=== PATIENT | female | born 1980 | race Caucasian/White ===

== ENCOUNTER 2018-12-09 15:19 | Emergency (ER) | payer OTHER, MEDICAID, SELFPAY ==
[2018-12-09 15:33] VITALS: BP 118/73; PULSE 74; RESP 18; TEMP 36.6; O2SAT 97; BMI 31.0
== END 2018-12-09 16:42 | disposition left against medical advice (07) ==
LOC: ED 15:52
DX: M54.2 Cervicalgia (principal)
CPT/HCPCS: 99281; 99282

== ENCOUNTER 2019-01-04 09:35 | Inpatient (IN) | payer MEDICAID, SELFPAY ==
[2019-01-04] VITALS (9 sets, daily range): BP systolic 99–124; BP diastolic 59–80; PULSE 56–85; RESP 10–18; TEMP 36.6–37; O2SAT 97–100
--- NOTE | 2019-01-04 09:46 | DI.CT.S_ITS ---
PROCEDURE: CT HEAD/BRAIN WO CON INDICATIONS: left side weakness upon waking TECHNIQUE: Noncontrast 4.5 mm thick angled axial sections acquired from the foramen magnum to the vertex, with coronal and sagittal reformats. For radiation dose reduction, the following was used: automated exposure control, adjustment of mA and/or kV according to patient size. COMPARISON: [facility], CT, HEAD WITHOUT CONTRAST, 09/10/2017, 16:33. FINDINGS: Image quality: Excellent. CSF spaces: Basal cisterns are patent. No extra-axial fluid collections. Ventricles are normal in size and shape. Brain: No midline shift. No intracranial masses or hemorrhage. Baez-white matter interface is normal. Skull and face: Calvarium and visualized facial bones are intact, without suspicious lesions. Sinuses: Visualized sinuses and mastoids are clear. IMPRESSION: No CT evidence of acute intracranial pathology. Dictated by: Sergey Castillo M.D. on 01/04/2019 at 9:59 Approved by: Sergey Castillo M.D. on 01/04/2019 at 10:00
--- NOTE | 2019-01-04 10:17 | PC.NURSE ---
pt reports, woke up at 6am, with left eye swollen and left face and body numbness/weakness, with foggy visual. pt took benadryl 50mg , ibuprofen 400mg at 615. now with pulsing headache back of head. denies fever, and vomiting has nausea. 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 hx of gastric bypass, c section, pseudoseizures.
[2019-01-04 10:19] LABS: Add Manual Diff / Slide Review NO; Basophils Absolute Auto 0 /uL (0-100); Basophils Percent Auto 0.4 % (0-2); Eosinophils Absolute Auto 100 /uL (0-450); Eosinophils Percent Auto 1.6 % (2-4); Hematocrit 39.4 % (36-46); Hemoglobin 13.3 g/dL (12.0-16.0); Lymphocytes Absolute Auto 1600 /uL (1100-4500); Lymphocytes Percent Auto 26.5 % (25-40); Mean Corpuscular HGB Conc 33.9 % (30-36); Mean Corpuscular Hemoglobin 31.2 PG (26-34); Mean Corpuscular Volume 92.1 fL (80-100); Monocytes Absolute Auto 400 /uL (0-900); Monocytes Percent Auto 6.8 % (3-14); Neutrophils Absolute Auto 4000 /uL (1500-7000); Neutrophils Percent Auto 64.7 % (50-75); Platelet Count 199 X10^3/uL (150-400); Red Blood Cell Count 4.28 X10^6/uL (4.0-5.2); Red Cell Distribution Width 12.6 % (11.6-14.8); White Blood Cell Count 6.2 X10^3/uL (4.5-11.0)
[2019-01-04] MEDS: SODIUM CHLORIDE 0.9% 1,000 ML 150 ML IV (10:22)
[2019-01-04 10:27] LABS: INR 1.1 (0.9-1.3); Prothrombin Time 12.1 SECONDS (10.1-12.7)
[2019-01-04 10:30] LABS: PTT Partial Thromboplastin Tim 32 SECONDS (26.4-36.2)
[2019-01-04 10:32] LABS: BUN Creatinine Ratio 21.1 (6-22); Blood Urea Nitrogen 19 mg/dL (7-17); Calcium 9.1 mg/dL (8.4-10.2); Carbon Dioxide 26 mmol/L (22-32); Chloride 107 mmol/L (98-107); Estimated Glomerular Filt Rate > 60.0 mL/min (>60); Glucose 100 mg/dL (70-100); HEMOLYSIS < 15 (0-50); Potassium 4.4 mmol/L (3.4-5.1); Sodium 142 mmol/L (137-145)
--- NOTE | 2019-01-04 10:36 | DI.MRI.S_ITS ---
PROCEDURE: MR STROKE Pre- and post-contrast brain MRI, non-contrast brain MR angiogram, pre- and postcontrast neck MR angiogram INDICATIONS: L sided weakness TECHNIQUE: Brain: Noncontrast axial T1 spin echo, axial T2 fast spin echo, sagittal and axial FLAIR, coronal T2 fast spin echo, axial gradient echo, axial diffusion and ADC through the brain. After the administration of contrast, axial 3D VIBE of the cranial vasculature and brain. Brain MRA: Non-contrast 3-D time of flight MR angiogram, with multiple bhtmhyd-ekzmwjops-xbqbxrugll (MIP) reformats performed. Neck MRA: Axial and sagittal TruFISP through the neck. Coronal dynamic MR angiogram during administration of contrast in the arterial and venous phases, with 3-dimenstional mhcsnrg-dnxopvtrz-wgagpmqnhy (MIP) reformats constructed from subtraction images. COMPARISON: [facility], CT, BRAIN W/O CONTRAST, 11/14/2012, 20:59. [facility], CT, HEAD WITHOUT CONTRAST, 09/10/2017, 16:33. [facility], CT, CT HEAD/BRAIN WO CON, 01/04/2019, 9:41. FINDINGS: Image quality: Excellent. BRAIN: CSF spaces: Ventricles are normal in size and shape. Basal cisterns are patent. No extra-axial fluid collections. Brain: No intracranial bleeds or mass effects. Baez-white matter interface is normal. Diffusion weighted images show no acute ischemic insults. Brainstem appears normal. Normal intravascular flow voids are present. No abnormal intracranial enhancement. Skull and face: Calvarial marrow signal is normal. Orbits appear normal. Sinuses: Sinuses and mastoids are clear. BRAIN MR ANGIOGRAM: Anterior circulation: Intracranial internal carotid arteries are normal in size and enhancement. The flow within the paired anterior cerebral arteries is normal and symmetric. The flow within the middle cerebral arteries is normal and symmetric. The anterior communicating artery is seen. No stenoses, occlusions, or aneurysms. Posterior circulation: The visualized portions of the vertebral arteries demonstrate normal caliber, and join to form a normal appearing basilar artery. The flow within the posterior cerebral arteries is normal and symmetric. No stenoses, occlusions, or aneurysms. NECK MR ANGIOGRAM: Carotids: Great vessels demonstrate a conventional anatomy as they arise from the aortic arch. The origins of the common carotid arteries appear patent. The calibers and courses of both common carotid arteries are normal. The bifurcation regions appear normal bilaterally. The internal carotid arteries demonstrate normal course and caliber. Posterior circulation: The origins of the vertebral arteries appear patent. More superior portions of both vertebral arteries demonstrate normal course and caliber, and join to form a normal appearing basilar artery. Miscellaneous: Subclavian arteries appear patent. Pre-contrast images through the neck show no soft tissue abnormalities. IMPRESSION: BRAIN MRI: No acute intracranial abnormality. BRAIN MR ANGIOGRAM: No high-grade stenosis or occlusion in anterior circulations. No high-grade stenosis or occlusion in posterior circulations. NECK MR ANGIOGRAM: Normal cervical carotid arteries bilaterally. Normal cervical vertebral arteries bilaterally. Dictated by: Jackson Payton M.D. on 01/04/2019 at 12:21 Approved by: Jackson Payton M.D. on 01/04/2019 at 12:25
[2019-01-04] MEDS: LORazepam 2 MG/ML SYRINGE 1 MG IV (10:53)
--- NOTE | 2019-01-04 11:45 | PC.NURSE ---
and weakness. pt able to ambulate to bathroom with steady gait.
--- NOTE | 2019-01-04 11:49 | ED.NEUROSD ---
HPI - Neuro Symptoms/Deficit General Chief Complaint: Neuro Symptoms/Deficit Stated Complaint: WHOLE FACE NUMB/SWOLLEN,LEFT SIDE NUMB,NECK STIFF Time Seen by Provider: 01/04/19 09:36 Source: patient and family Mode of arrival: ambulatory Limitations: no limitations History of Present Illness HPI Narrative: 38-year-old female nonsmoker presents with family in the chief complaint of multiple neurologic symptoms which she noticed upon waking at 6:00 a.m. this morning. Her symptoms include left-sided facial numbness and weakness as well as tingling and weakness of her left upper and lower extremity. She denies any chest pain or shortness of breath. She denies any recent injury. She denies any use blood thinners. She denies any history of the same. She has not activated as a stroke as she is outside of a tPA window and her RALPH score is only 2. Onset (ago): hour(s) Location: speech, left face, left arm and left leg History of same: No Severity: mild Quality: weak and numb Relieving factors: none Exacerbating factors: none Associated symptoms: denies other symptoms Treatments Prior to Arrival: none Related Data Home Medications Medication Instructions Recorded Confirmed Liver Cleanse 1 dose PO DIRECTED 01/04/19 01/04/19 multivitamin 1 tab PO DAILY 01/04/19 01/04/19 multivitamin with minerals 1 tab PO DAILY 01/04/19 01/04/19 [Hair,Skin and Nails] Allergies Allergy/AdvReac Type Severity Reaction Status Date / Time ceftriaxone [CEFTRIAXONE] Allergy Intermediate Verified 01/04/19 09:44 ketorolac [KETOROLAC] Allergy Intermediate Verified 01/04/19 09:44 acetaminophen [From VICODIN] Allergy Unknown Verified 01/04/19 09:44 enoxaparin [From LOVENOX] Allergy Unknown Verified 01/04/19 09:44 hydrocodone [From VICODIN] Allergy Unknown Verified 01/04/19 09:44 prednisone [PREDNISONE] Allergy Unknown Verified 01/04/19 09:44 MEDICATION FOR BLOOD CLOTS Allergy Intermediate Uncoded 01/04/19 09:44 Review of Systems Constitutional Denies chills, Denies fever(s), Denies lethargy and Denies weakness Eyes Denies change in vision, Denies eye discharge, Denies irritation and Denies loss of vision ENT Ears, Nose, Mouth, and Throat: Denies change in voice, Denies neck pain and Denies sore throat Cardiovascular Denies chest pain, Denies irregular heart rhythm, Denies lightheadedness, Denies palpitations, Denies dyspnea, Denies dyspnea on exertion and Denies orthopnea Respiratory Denies cough, Denies dyspnea, Denies dyspnea on exertion and Denies wheezing Gastrointestinal Gastrointestinal: Denies abdominal pain, Denies change in bowel habits, Denies diarrhea, Denies nausea and Denies vomiting Genitourinary Denies hematuria, Denies flank pain, Denies urinary incontinence and Denies urinary urgency Musculoskeletal Denies neck pain Integumentary/Breasts Denies pruritus, Denies erythema, Denies rash and Denies wounds Neurologic Denies confusion, Reports focal weakness, Denies loss of vision, Reports sensory deficit and Denies weakness Psychiatric Denies anxiety, Denies confusion, Denies depression, Denies homicidal ideation and Denies suicidal ideation Endocrine Denies palpitations Hematologic/Lymphatic Denies easy bruising Allergic/Immunologic Denies wheezing PFSH Social History Smoking Status: Never smoker Social History Smoking Status: Never smoker Exam Narrative Exam Narrative: GENERAL: This is a well-nourished, well-developed patient, in mild distress. HEAD: Atraumatic. Normocephalic. No temporal or scalp tenderness. Minimal swelling of left upper lid, nontender EYES: Pupils equal round and reactive. Extraocular motions intact. No scleral icterus. No injection or drainage. ENT: Nose without bleeding, purulent drainage or septal hematoma. Throat without erythema, tonsillar hypertrophy or exudate. Uvula midline. Airway patent. NECK: Trachea midline. No JVD or lymphadenopathy. Supple, nontender, no meningeal signs. CARDIOVASCULAR: Regular rate and rhythm without murmurs, gallops, or rubs. RESPIRATORY: Clear to auscultation. Breath sounds equal bilaterally. No wheezes, rales, or rhonchi. GASTROINTESTINAL: Abdomen soft, non-tender, nondistended. No hepato-splenomegaly, or palpable masses. No guarding. EXTREMITIES: No clubbing, cyanosis, or edema. No joint tenderness, effusion, or edema noted. BACK: Nontender without deformity or crepitance. No flank tenderness. NEURO: AOx3. SKIN: No rash or erythema. Initial Vital Signs Initial Vital Signs: Vital Signs Temperature 98.2 F 01/04/19 09:44 Pulse Rate 74 01/04/19 09:44 Respiratory Rate 15 01/04/19 09:44 Blood Pressure 124/66 01/04/19 09:44 Pulse Oximetry 100 01/04/19 09:44 Scores NIH Stroke Scale Level of Conciousness: Alert, keenly responsive Ask month/age: Answers both questions correctly. Open/close eyes, close hand: Performs both tasks correctly Best gaze horizontal: Normal Visual chanel: No visual loss Facial palsy: Minor paralysis, flattened nasolabial fold, asymmetry on smiling Left arm drift: No drift for full 10 sec Right arm drift: No drift for full 10 sec Left leg drift: Drifts down, not to bed Right leg drift: No drift for full 10 sec Limb ataxia: Absent Sensory on face/arms/legs: Mild to moderate sensory loss, can tell touch Best language: No aphasia, normal Dysarthria: Normal Extinction or inattention: No abnormality Total NIH Stroke scale score: 3 Course Orders Ordered: ED Orders 01/04/19 09:43 Urine Drug Screen, Rapid Stat EKG-12 Lead Stat 01/04/19 09:46 CT head/brain wo con Stat 01/04/19 10:05 Basic Metabolic Panel Stat Complete Blood Count AUTO DIFF Stat Partial Thromboplastin Time Stat Prothrombin Time INR Stat 01/04/19 10:36 MR stroke Stat 01/04/19 11:03 Urine Microscopic Stat Sodium Chloride (Normal Saline 0.9%) 1,000 mls @ 150 mls/hr IV CONT NILESH Last Admin: 01/04/19 10:22 Dose: 150 mls/hr Discontinued Medications Aspirin (Aspirin) 325 mg PO NOW ONE Stop: 01/04/19 11:56 Last Admin: 01/04/19 12:17 Dose: 325 mg Ketorolac Tromethamine (Toradol) 15 mg IV NOW ONE Stop: 01/04/19 13:04 Lorazepam (Ativan) 1 mg IV NOW ONE Stop: 01/04/19 10:45 Last Admin: 01/04/19 10:53 Dose: 1 mg Metoclopramide HCl (Reglan) 10 mg IV NOW ONE Stop: 01/04/19 13:04 Consultations Consultation #1: Upon receipt of negative MRI I consulted stroke at [facility] and discussed this patient's case. We sure the opinion this is unlikely to be stroke but could still be TIA given time frame or something such as hemiplegic migraine. Recommendations are to treat for migraine and bring into the hospital to perform echocardiogram with bubble and place patient on telemetry. If the patient does have a PFO they recommend adding Doppler of bilateral lower extremities. The same neurologist is sanitation associate tomorrow from 9:00 a.m. to 2:00 p.m. and would highly prefer to be contacted during this time frame to maintain continuity of care Consultation #2: Dr. Torrez happy to accept Vital Signs - 8 hr 01/04/19 09:44 01/04/19 10:30 01/04/19 11:45 Temperature 98.2 F Pulse Rate 74 56 L 81 Respiratory Rate 15 10 L 12 Blood Pressure 124/66 Blood Pressure [Left Arm] 109/78 123/77 Pulse Oximetry 100 98 100 01/04/19 12:26 01/04/19 13:02 Temperature Pulse Rate 75 78 Respiratory Rate 18 18 Blood Pressure Blood Pressure [Left Arm] 112/80 123/79 Pulse Oximetry 99 100 MDM - Neuro Symptoms/Deficit Medical Records Attestation: I reviewed the patient's medical records. Lab Data Attestation: I reviewed the patient's lab results. Result diagrams: 01/04/19 10:05 01/04/19 10:05 Lab Results 01/04/19 01/04/19 01/04/19 Range/Units 10:05 10:05 10:05 WBC 6.2 (4.5-11.0) X10^3/uL RBC 4.28 (4.0-5.2) X10^6/uL Hgb 13.3 (12.0-16.0) g/dL Hct 39.4 (36-46) % MCV 92.1 (80-100) fL MCH 31.2 (26-34) PG MCHC 33.9 (30-36) % RDW 12.6 (11.6-14.8) % Plt Count 199 (150-400) X10^3/uL Neut % (Auto) 64.7 (50-75) % Lymph % (Auto) 26.5 (25-40) % [place] % (Auto) 6.8 (3-14) % Eos % (Auto) 1.6 L (2-4) % Baso % (Auto) 0.4 (0-2) % Neut # (Auto) 4000 (2454-9237) /uL Lymph # (Auto) 1600 (3145-1937) /uL [place] # (Auto) 400 (0-900) /uL Eos # (Auto) 100 (0-450) /uL Baso # (Auto) 0 (0-100) /uL PT 12.1 (10.1-12.7) SECONDS INR 1.1 (0.9-1.3) APTT 32 (26.4-36.2) SECONDS Sodium 142 (137-145) mmol/L Potassium 4.4 (3.4-5.1) mmol/L Chloride 107 (98-107) mmol/L Carbon Dioxide 26 (22-32) mmol/L BUN 19 H (7-17) mg/dL Creatinine 0.90 (0.52-1.04) mg/dL Estimated GFR > 60.0 (>60) mL/min BUN/Creatinine Ratio 21.1 (6-22) Glucose 100 (70-100) mg/dL Calcium 9.1 (8.4-10.2) mg/dL Point of Care Testing Glucose POC 109 Urine Dip Bedside Urine Glucose Negative Bedside Urine Bilirubin + 1 Bedside Urine Ketone - Negative Urine Specific [place] 1.030 Bedside Urine Occult Blood - Negative Bedside Urine pH 6.0 Bedside Urine Protein - Negative Bedside Urine Urobilinogen - Negative Bedside Urine Nitrite - Negative Bedside Urine Leukocytes - Negative Esterase Imaging Data CT scan - head: Radiologist's impression: [address] [address] [address] Scan Report Signed Patient: Tabby Edmondson [facility]#: [id number] : 1980Acct:[id number] Age/Sex: 38 / FDate of Service: 01/04/19 Loc: ED Accession Number: [id number] Procedure: CT head/brain wo con Ordering Provider: Jaycob Wong D.O. PROCEDURE: CT HEAD/BRAIN WO CON INDICATIONS: left side weakness upon waking TECHNIQUE: Noncontrast 4.5 mm thick angled axial sections acquired from the foramen magnum to the vertex, with coronal and sagittal reformats. For radiation dose reduction, the following was used: automated exposure control, adjustment of mA and/or kV according to patient size. COMPARISON: [facility], CT, HEAD WITHOUT CONTRAST, 09/10/2017, 16:33. FINDINGS: Image quality: Excellent. CSF spaces: Basal cisterns are patent. No extra-axial fluid collections. Ventricles are normal in size and shape. Brain: No midline shift. No intracranial masses or hemorrhage. Baez-white matter interface is normal. Skull and face: Calvarium and visualized facial bones are intact, without suspicious lesions. Sinuses: Visualized sinuses and mastoids are clear. IMPRESSION: No CT evidence of acute intracranial pathology. Dictated by: Sergey Castillo M.D. on 01/04/2019 at 9:59 Approved by: Sergey Castillo M.D. on 01/04/2019 at 10:00 MRI Stroke: Radiologist's impression: [address] [address] Magnetic Resonance Report Signed Patient: Tabby Edmondson [facility]#: [id number] : 1980Acct:[id number] Age/Sex: 38 / FDate of Service: 01/04/19 Loc: ED Accession Number: [id number] Procedure: MR stroke Ordering Provider: Jaycob Wong D.O. PROCEDURE: MR STROKE Pre- and post-contrast brain MRI, non-contrast brain MR angiogram, pre- and postcontrast neck MR angiogram INDICATIONS: L sided weakness TECHNIQUE: Brain: Noncontrast axial T1 spin echo, axial T2 fast spin echo, sagittal and axial FLAIR, coronal T2 fast spin echo, axial gradient echo, axial diffusion and ADC through the brain. After the administration of contrast, axial 3D VIBE of the cranial vasculature and brain. Brain MRA: Non-contrast 3-D time of flight MR angiogram, with multiple pfohvlg-vpkgzzxiw-ltyqnbadao (MIP) reformats performed. Neck MRA: Axial and sagittal TruFISP through the neck. Coronal dynamic MR angiogram during administration of contrast in the arterial and venous phases, with 3-dimenstional pftxdqc-sbpduuxay-hncczjswxl (MIP) reformats constructed from subtraction images. COMPARISON: [facility], CT, BRAIN W/O CONTRAST, 11/14/2012, 20:59. [facility], CT, HEAD WITHOUT CONTRAST, 09/10/2017, 16:33. [facility], CT, CT HEAD/BRAIN WO CON, 01/04/2019, 9:41. FINDINGS: Image quality: Excellent. BRAIN: CSF spaces: Ventricles are normal in size and shape. Basal cisterns are patent. No extra-axial fluid collections. Brain: No intracranial bleeds or mass effects. Baez-white matter interface is normal. Diffusion weighted images show no acute ischemic insults. Brainstem appears normal. Normal intravascular flow voids are present. No abnormal intracranial enhancement. Skull and face: Calvarial marrow signal is normal. Orbits appear normal. Sinuses: Sinuses and mastoids are clear. BRAIN MR ANGIOGRAM: Anterior circulation: Intracranial internal carotid arteries are normal in size and enhancement. The flow within the paired anterior cerebral arteries is normal and symmetric. The flow within the middle cerebral arteries is normal and symmetric. The anterior communicating artery is seen. No stenoses, occlusions, or aneurysms. Posterior circulation: The visualized portions of the vertebral arteries demonstrate normal caliber, and join to form a normal appearing basilar artery. The flow within the posterior cerebral arteries is normal and symmetric. No stenoses, occlusions, or aneurysms. NECK MR ANGIOGRAM: Carotids: Great vessels demonstrate a conventional anatomy as they arise from the aortic arch. The origins of the common carotid arteries appear patent. The calibers and courses of both common carotid arteries are normal. The bifurcation regions appear normal bilaterally. The internal carotid arteries demonstrate normal course and caliber. Posterior circulation: The origins of the vertebral arteries appear patent. More superior portions of both vertebral arteries demonstrate normal course and caliber, and join to form a normal appearing basilar artery. Miscellaneous: Subclavian arteries appear patent. Pre-contrast images through the neck show no soft tissue abnormalities. IMPRESSION: BRAIN MRI: No acute intracranial abnormality. BRAIN MR ANGIOGRAM: No high-grade stenosis or occlusion in anterior circulations. No high-grade stenosis or occlusion in posterior circulations. NECK MR ANGIOGRAM: Normal cervical carotid arteries bilaterally. Normal cervical vertebral arteries bilaterally. Dictated by: Jackson Payton M.D. on 01/04/2019 at 12:21 Approved by: Jackson Patyon M.D. on 01/04/2019 at 12:25 Critical Care Time Critical Care Time: Yes Total Critical Care Time: 30 Attestation: The high probability of a clinically significant, sudden or life threatening deterioration of the [neurologic] system(s) required my full and direct attention, intervention and personal management. The aggregate critical care time was [30] minutes. This time is in addition to time spent performing reported procedures but includes the following: [x] Data Review and interpretation [x] Patient assessment and monitoring of vital signs [x] Documentation [x] Medication orders and management Discharge Plan Departure Patient Disposition: Admitted as Observation Clinical Impression: Brain TIA Headache, hemiplegic migraine Qualifiers: Intractability: not intractable
--- NOTE | 2019-01-04 11:55 | ED_ITS ---
HPI - Neuro Symptoms/Deficit General Chief Complaint: Neuro Symptoms/Deficit Stated Complaint: WHOLE FACE NUMB/SWOLLEN,LEFT SIDE NUMB,NECK STIFF Time Seen by Provider: 01/04/19 09:36 Source: patient and family Mode of arrival: ambulatory Limitations: no limitations History of Present Illness HPI Narrative: 38-year-old female nonsmoker presents with family in the chief complaint of multiple neurologic symptoms which she noticed upon waking at 6:00 a.m. this morning. Her symptoms include left-sided facial numbness and weakness as well as tingling and weakness of her left upper and lower extremity. She denies any chest pain or shortness of breath. She denies any recent injury. She denies any use blood thinners. She denies any history of the same. She has not activated as a stroke as she is outside of a tPA window and her RALPH score is only 2. Onset (ago): hour(s) Location: speech, left face, left arm and left leg History of same: No Severity: mild Quality: weak and numb Relieving factors: none Exacerbating factors: none Associated symptoms: denies other symptoms Treatments Prior to Arrival: none Related Data Home Medications Medication Instructions Recorded Confirmed Liver Cleanse 1 dose PO DIRECTED 01/04/19 01/04/19 multivitamin 1 tab PO DAILY 01/04/19 01/04/19 multivitamin with minerals 1 tab PO DAILY 01/04/19 01/04/19 [Hair,Skin and Nails] Allergies Allergy/AdvReac Type Severity Reaction Status Date / Time ceftriaxone [CEFTRIAXONE] Allergy Intermediate Verified 01/04/19 09:44 ketorolac [KETOROLAC] Allergy Intermediate Verified 01/04/19 09:44 acetaminophen [From VICODIN] Allergy Unknown Verified 01/04/19 09:44 enoxaparin [From LOVENOX] Allergy Unknown Verified 01/04/19 09:44 hydrocodone [From VICODIN] Allergy Unknown Verified 01/04/19 09:44 prednisone [PREDNISONE] Allergy Unknown Verified 01/04/19 09:44 MEDICATION FOR BLOOD CLOTS Allergy Intermediate Uncoded 01/04/19 09:44 Review of Systems Constitutional Denies chills, Denies fever(s), Denies lethargy and Denies weakness Eyes Denies change in vision, Denies eye discharge, Denies irritation and Denies loss of vision ENT Ears, Nose, Mouth, and Throat: Denies change in voice, Denies neck pain and Denies sore throat Cardiovascular Denies chest pain, Denies irregular heart rhythm, Denies lightheadedness, Denies palpitations, Denies dyspnea, Denies dyspnea on exertion and Denies orthopnea Respiratory Denies cough, Denies dyspnea, Denies dyspnea on exertion and Denies wheezing Gastrointestinal Gastrointestinal: Denies abdominal pain, Denies change in bowel habits, Denies diarrhea, Denies nausea and Denies vomiting Genitourinary Denies hematuria, Denies flank pain, Denies urinary incontinence and Denies urinary urgency Musculoskeletal Denies neck pain Integumentary/Breasts Denies pruritus, Denies erythema, Denies rash and Denies wounds Neurologic Denies confusion, Reports focal weakness, Denies loss of vision, Reports sensory deficit and Denies weakness Psychiatric Denies anxiety, Denies confusion, Denies depression, Denies homicidal ideation and Denies suicidal ideation Endocrine Denies palpitations Hematologic/Lymphatic Denies easy bruising Allergic/Immunologic Denies wheezing PFSH Social History Smoking Status: Never smoker Social History Smoking Status: Never smoker Exam Narrative Exam Narrative: GENERAL: This is a well-nourished, well-developed patient, in mild distress. HEAD: Atraumatic. Normocephalic. No temporal or scalp tenderness. Minimal swel ling of left upper lid, nontender EYES: Pupils equal round and reactive. Extraocular motions intact. No scleral icterus. No injection or drainage. ENT: Nose without bleeding, purulent drainage or septal hematoma. Throat without erythema, tonsillar hypertrophy or exudate. Uvula midline. Airway patent. NECK: Trachea midline. No JVD or lymphadenopathy. Supple, nontender, no meningeal signs. CARDIOVASCULAR: Regular rate and rhythm without murmurs, gallops, or rubs. RESPIRATORY: Clear to auscultation. Breath sounds equal bilaterally. No wheezes, rales, or rhonchi. GASTROINTESTINAL: Abdomen soft, non-tender, nondistended. No hepato- splenomegaly, or palpable masses. No guarding. EXTREMITIES: No clubbing, cyanosis, or edema. No joint tenderness, effusion, or edema noted. BACK: Nontender without deformity or crepitance. No flank tenderness. NEURO: AOx3. SKIN: No rash or erythema. Initial Vital Signs Initial Vital Signs: Vital Signs Temperature 98.2 F 01/04/19 09:44 Pulse Rate 74 01/04/19 09:44 Respiratory Rate 15 01/04/19 09:44 Blood Pressure 124/66 01/04/19 09:44 Pulse Oximetry 100 01/04/19 09:44 Scores NIH Stroke Scale Level of Conciousness: Alert, keenly responsive Ask month/age: Answers both questions correctly. Open/close eyes, close hand: Performs both tasks correctly Best gaze horizontal: Normal Visual chanel: No visual loss Facial palsy: Minor paralysis, flattened nasolabial fold, asymmetry on smiling Left arm drift: No drift for full 10 sec Right arm drift: No drift for full 10 sec Left leg drift: Drifts down, not to bed Right leg drift: No drift for full 10 sec Limb ataxia: Absent Sensory on face/arms/legs: Mild to moderate sensory loss, can tell touch Best language: No aphasia, normal Dysarthria: Normal Extinction or inattention: No abnormality Total NIH Stroke scale score: 3 Course Orders Ordered: ED Orders 01/04/19 09:43 Urine Drug Screen, Rapid Stat EKG-12 Lead Stat 01/04/19 09:46 CT head/brain wo con Stat 01/04/19 10:05 Basic Metabolic Panel Stat Complete Blood Count AUTO DIFF Stat Partial Thromboplastin Time Stat Prothrombin Time INR Stat 01/04/19 10:36 MR stroke Stat 01/04/19 11:03 Urine Microscopic Stat Sodium Chloride (Normal Saline 0.9%) 1,000 mls @ 150 mls/hr IV CONT NILESH Last Admin: 01/04/19 10:22 Dose: 150 mls/hr Discontinued Medications Aspirin (Aspirin) 325 mg PO NOW ONE Stop: 01/04/19 11:56 Last Admin: 01/04/19 12:17 Dose: 325 mg Ketorolac Tromethamine (Toradol) 15 mg IV NOW ONE Stop: 01/04/19 13:04 Lorazepam (Ativan) 1 mg IV NOW ONE Stop: 01/04/19 10:45 Last Admin: 01/04/19 10:53 Dose: 1 mg Metoclopramide HCl (Reglan) 10 mg IV NOW ONE Stop: 01/04/19 13:04 Consultations Consultation #1: Upon receipt of negative MRI I consulted stroke at [facility] and discussed this patient's case. We sure the opinion this is unlikely to be stroke but could still be TIA given time frame or something such as hemiplegic migraine. Recommendations are to treat for migraine and bring into the hospital to perform echocardiogram with bubble and place patient on telemetry. If the patient does have a PFO they recommend adding Doppler of bilateral lower extremities. The same neurologist is water filtration technician tomorrow from 9:00 a.m. to 2:00 p.m. and would highly prefer to be contacted during this time frame to maintain continuity of care Consultation #2: Dr. Torrez happy to accept Vital Signs - 8 hr 01/04/19 09:44 01/04/19 10:30 01/04/19 11:45 Temperature 98.2 F Pulse Rate 74 56 L 81 Respiratory Rate 15 10 L 12 Blood Pressure 124/66 Blood Pressure [Left Arm] 109/78 123/77 Pulse Oximetry 100 98 100 01/04/19 12:26 01/04/19 13:02 Temperature Pulse Rate 75 78 Respiratory Rate 18 18 Blood Pressure Blood Pressure [Left Arm] 112/80 123/79 Pulse Oximetry 99 100 MDM - Neuro Symptoms/Deficit Medical Records Attestation: I reviewed the patient's medical records. Lab Data Attestation: I reviewed the patient's lab results. Result diagrams: 01/04/19 10:05 01/04/19 10:05 Lab Results 01/04/19 01/04/19 01/04/19 Range/Units 10:05 10:05 10:05 WBC 6.2 (4.5-11.0) X10^3/uL RBC 4.28 (4.0-5.2) X10^6/uL Hgb 13.3 (12.0-16.0) g/dL Hct 39.4 (36-46) % MCV 92.1 (80-100) fL MCH 31.2 (26-34) PG MCHC 33.9 (30-36) % RDW 12.6 (11.6-14.8) % Plt Count 199 (150-400) X10^3/uL Neut % (Auto) 64.7 (50-75) % Lymph % (Auto) 26.5 (25-40) % [place] % (Auto) 6.8 (3-14) % Eos % (Auto) 1.6 L (2-4) % Baso % (Auto) 0.4 (0-2) % Neut # (Auto) 4000 (5576-7608) /uL Lymph # (Auto) 1600 (8901-2572) /uL [place] # (Auto) 400 (0-900) /uL Eos # (Auto) 100 (0-450) /uL Baso # (Auto) 0 (0-100) /uL PT 12.1 (10.1-12.7) SECONDS INR 1.1 (0.9-1.3) APTT 32 (26.4-36.2) SECONDS Sodium 142 (137-145) mmol/L Potassium 4.4 (3.4-5.1) mmol/L Chloride 107 (98-107) mmol/L Carbon Dioxide 26 (22-32) mmol/L BUN 19 H (7-17) mg/dL Creatinine 0.90 (0.52-1.04) mg/dL Estimated GFR > 60.0 (>60) mL/min BUN/Creatinine Ratio 21.1 (6-22) Glucose 100 (70-100) mg/dL Calcium 9.1 (8.4-10.2) mg/dL Point of Care Testing Glucose POC 109 Urine Dip Bedside Urine Glucose Negative Bedside Urine Bilirubin + 1 Bedside Urine Ketone - Negative Urine Specific Howell 1.030 Bedside Urine Occult Blood - Negative Bedside Urine pH 6.0 Bedside Urine Protein - Negative Bedside Urine Urobilinogen - Negative Bedside Urine Nitrite - Negative Bedside Urine Leukocytes - Negative Esterase Imaging Data CT scan - head: Radiologist's impression: [address] [address] [address] Scan Report Signed Patient: Tabby Edmondson [facility]#: [id number] : 1980Acct:[id number] Age/Sex: 38 / FDate of Service: 01/04/19 Loc: ED Accession Number: [id number] Procedure: CT head/brain wo con Ordering Provider: Jaycob Wong D.O. PROCEDURE: CT HEAD/BRAIN WO CON INDICATIONS: left side weakness upon waking TECHNIQUE: Noncontrast 4.5 mm thick angled axial sections acquired from the foramen magnum to the vertex, with coronal and sagittal reformats. For radiation dose reduction, the following was used: automated exposure control, adjustment of mA and/or kV according to patient size. COMPARISON: [facility], CT, HEAD WITHOUT CONTRAST, 09/10/2017, 16:33. FINDINGS: Image quality: Excellent. CSF spaces: Basal cisterns are patent. No extra-axial fluid collections. Ventricles are normal in size and shape. Brain: No midline shift. No intracranial masses or hemorrhage. Baez-white matter interface is normal. Skull and face: Calvarium and visualized facial bones are intact, without suspicious lesions. Sinuses: Visualized sinuses and mastoids are clear. IMPRESSION: No CT evidence of acute intracranial pathology. Dictated by: Sergey Castillo M.D. on 01/04/2019 at 9:59 Approved by: Sergey Castillo M.D. on 01/04/2019 at 10:00 MRI Stroke: Radiologist's impression: [address] [address] Magnetic Resonance Report Signed Patient: Tabby Edmondson [facility]#: [id number] : 1980Acct:[id number] Age/Sex: 38 / FDate of Service: 01/04/19 Loc: ED Accession Number: [id number] Procedure: MR stroke Ordering Provider: Jaycob Wong D.O. PROCEDURE: MR STROKE Pre- and post-contrast brain MRI, non-contrast brain MR angiogram, pre- and postcontrast neck MR angiogram INDICATIONS: L sided weakness TECHNIQUE: Brain: Noncontrast axial T1 spin echo, axial T2 fast spin echo, sagittal and axial FLAIR, coronal T2 fast spin echo, axial gradient echo, axial diffusion and ADC through the brain. After the administration of contrast, axial 3D VIBE of the cranial vasculature and brain. Brain MRA: Non-contrast 3-D time of flight MR angiogram, with multiple croqpea-umbdcqnsp-jfgcqplkae (MIP) reformats performed. Neck MRA: Axial and sagittal TruFISP through the neck. Coronal dynamic MR angiogram during administration of contrast in the arterial and venous phases, with 3- dimenstional vfcdhkl-mzjjjxdef-mrtgaaelcc (MIP) reformats constructed from subtraction imag es. COMPARISON: [facility], CT, BRAIN W/O CONTRAST, 11/14/2012, 20:59. [facility], CT, HEAD WITHOUT CONTRAST, 09/10/2017, 16:33. [facility], CT, CT HEAD/BRAIN WO CON, 01/04/2019, 9:41. FINDINGS: Image quality: Excellent. BRAIN: CSF spaces: Ventricles are normal in size and shape. Basal cisterns are patent. No extra-axial fluid collections. Brain: No intracranial bleeds or mass effects. Baez-white matter interface is normal. Diffusion weighted images show no acute ischemic insults. Brainstem appears normal. Normal intravascular flow voids are present. No abnormal intracranial enhancement. Skull and face: Calvarial marrow signal is normal. Orbits appear normal. Sinuses: Sinuses and mastoids are clear. BRAIN MR ANGIOGRAM: Anterior circulation: Intracranial internal carotid arteries are normal in size and enhancement. The flow within the paired anterior cerebral arteries is normal and symmetric. The flow within the middle cerebral arteries is normal and symmetric. The anterior communicating artery is seen. No stenoses, occlusions, or aneurysms. Posterior circulation: The visualized portions of the vertebral arteries demonstrate normal caliber, and join to form a normal appearing basilar artery. The flow within the posterior cerebral arteries is normal and symmetric. No stenoses, occlusions, or aneurysms. NECK MR ANGIOGRAM: Carotids: Great vessels demonstrate a conventional anatomy as they arise from the aortic arch. The origins of the common carotid arteries appear patent. The calibers and courses of both common carotid arteries are normal. The bifurcation regions appear normal bilaterally. The internal carotid arteries demonstrate normal course and caliber. Posterior circulation: The origins of the vertebral arteries appear patent. More superior portions of both vertebral arteries demonstrate normal course and caliber, and join to form a normal appearing basilar artery. Miscellaneous: Subclavian arteries appear patent. Pre-contrast images through the neck show no soft tissue abnormalities. IMPRESSION: BRAIN MRI: No acute intracranial abnormality. BRAIN MR ANGIOGRAM: No high-grade stenosis or occlusion in anterior circulations. No high-grade stenosis or occlusion in posterior circulations. NECK MR ANGIOGRAM: Normal cervical carotid arteries bilaterally. Normal cervical vertebral arteries bilaterally. Dictated by: Jackson Payton M.D. on 01/04/2019 at 12:21 Approved by: Jackson Payton M.D. on 01/04/2019 at 12:25 Critical Care Time Critical Care Time: Yes Total Critical Care Time: 30 Attestation: The high probability of a clinically significant, sudden or life threatening deterioration of the [neurologic] system(s) required my full and direct attention, intervention and personal management. The aggregate critical care time was [30] minutes. This time is in addition to time spent performing r eported procedures but includes the following: [x] Data Review and interpretation [x] Patient assessment and monitoring of vital signs [x] Documentation [x] Medication orders and management Discharge Plan Departure Patient Disposition: Admitted as Observation Clinical Impression: Brain TIA Headache, hemiplegic migraine Qualifiers: Intractability: not intractable
[2019-01-04] MEDS: ASPIRIN 325 MG TABLET PO (12:17)
[2019-01-04] MEDS: METOCLOPRAMIDE 10 MG/2 ML INJ IV (14:36)
[2019-01-04] MEDS: KETOROLAC 60 MG/2 ML VIAL 15 MG IV (14:36)
[2019-01-04] MEDS: diphenhydrAMINE 50 MG/ML VIAL 25 MG IV (14:45)
[2019-01-04] MEDS: GABAPENTIN 300 MG CAPSULE PO (21:07)
[2019-01-05] VITALS (9 sets, daily range): BP systolic 110–126; BP diastolic 62–82; PULSE 67–87; RESP 16–18; TEMP 36.6–37.1; O2SAT 96–100
--- NOTE | 2019-01-05 | DI.ECHO.S_ITS ---
[facility] +---------+ : : [address] : : : : [id number] : : : : Phone: [phone] Echocardiogram Report + + :Name: MANUEL DIEGO Study Date: 01/05/2019 Height: 67 in : :[facility] Weight: 195 lb: : Gender: Female BSA: 2.0 m2 : :: 1980 Age: 38 yrs : :Reason For Study: TIA : : Performed By: Alexus Dixon : :Referring: LAVON JIN : + + Interpretation Summary The left ventricle is normal in size, wall thickness, and systolic function without any focal wall motion abnormalities. The ejection fraction is estimated to be 65-70%. Diastolic parameters suggest probable normal left ventricular diastolic function and normal filling pressures. The right ventricle grossly appears normal in size with probable normal systolic function. Injection of contrast documented no interatrial shunt. The left atrium is mildly dilated. Right atrial size is normal. There is no significant valvular heart disease. The aortic root is normal size. Procedure: A two-dimensional transthoracic echocardiogram with color flow and Doppler was performed. The study quality was technically excellent. Most of the acoustic windows were suboptimal, but the best imaging was obtained from the apical window. The patient was in normal sinus rhythm during the exam. Left Ventricle: The left ventricle is normal in size, wall thickness, and systolic function without any focal wall motion abnormalities. The ejection fraction is estimated to be 65-70%. Diastolic parameters suggest probable normal left ventricular diastolic function and normal filling pressures. Right Ventricle: The right ventricle grossly appears normal in size with probable normal systolic function. Atria: The left atrium is mildly dilated. Right atrial size is normal. Injection of contrast documented no interatrial shunt. Mitral Valve: The mitral valve is normal in structure and function. There is trace mitral regurgitation. Aortic Valve: The aortic valve is trileaflet. The aortic valve opens well. There is no aortic regurgitation. Tricuspid Valve: The tricuspid valve is normal in structure and function. There is mild tricuspid regurgitation. The right ventricular systolic pressure is estimated to be at least 25 mmHg based on an estimated right atrial pressure of 3 mm Hg. Pulmonic Valve: The pulmonic valve is normal in structure and function. There is trace pulmonic regurgitation. There is no significant valvular heart disease. Great Vessels: The aortic root is normal size. The dimensions of the ascending aorta are normal. The aortic arch is normal in size. Inspiratory collapse cannot be assessed because of mechanical ventilation, thus CVP cannot be estimated.. Pericardium/ Pleura There is no pericardial effusion. There is no pleural effusion. MMode/2D Measurements & Calculations LVIDd: 4.6 cm Ao root diam: 2.9 cm LVIDs: 2.8 cm Aortic Jxn: 2.3 cm FS: 39.8 % asc Aorta Diam: 2.9 cm EPSS: 0.41 cm Ao Arch Diam (Prox Trans): 3.0 cm IVSd: 0.90 cm LVPWd: 0.85 cm LV ibarra. diameter/BSA (cm/m^2): 2.3 LV sys. diameter/BSA (cm/m^2): 1.4 LA dimension: 4.1 cm RA long axis: 5.2 cm LA A2 area: 20.7 cm2 RA area: 14.5 cm2 LA A4 area: 22.9 cm2 RA vol: 34.5 ml LA length (vol): 5.8 cm RA : 17.3 ml/m2 LA vol: 69.2 ml IVC diam: 1.8 cm LA vol index: 34.6 ml/m2 RVDd major: 6.1 cm RVD1 (basal): 3.0 cm RVD2 (mid): 2.6 cm Doppler Measurements & Calculations Ao V2 max: 158.9 cm/sec MV E max riley: 115.5 cm/sec Ao V2 mean: 104.5 cm/sec MV A max riley: 57.4 cm/sec Ao max P.1 mmHg MV E/A: 2.0 Ao mean P.0 mmHg Med Peak E' Riley: 8.0 cm/sec Ao V2 VTI: 34.2 cm E/E' med: 14.4 Lat Peak E' Riley: 10.5 cm/sec E/E' lat: 11.0 E/e' average: 12.7 MV dec time: 0.18 sec MV P1/2t: 51.7 msec TR max riley: 236.6 cm/sec MV P1/2t max riley: 114.0 cm/sec TR max P.4 mmHg MVA(P1/2t): 4.3 cm2 PA V2 max: 83.0 cm/sec PA V2 mean: 52.4 cm/sec PA mean P.3 mmHg PA Accel Time: 0.11 sec Reading Physician:01:52 PM
--- NOTE | 2019-01-05 | DI.RAD.S_ITS ---
PROCEDURE: FL GUIDED LUMBAR PUNCTURE LP INDICATIONS: Hemiplegia, Headache, nuchal stiffness, meningeal signs TECHNIQUE: The indications, alternatives, benefits, risks, and complications were explained to the patient. Written informed consent was obtained and placed in the chart. The patient was placed in a prone position on the fluoroscopy table, and a level was chosen for percutaneous access under fluoroscopic guidance. The site was prepped and draped in a sterile fashion. After local anaesthetic, a spinal needle was then used to enter the intrathecal space, with return of cerebrospinal fluid. After obtaining sufficient fluid, the needle was then withdrawn, and a bandage applied to the puncture site. FINDINGS: Puncture level: L2-L3 Needle: Blunt-tipped spinal needle. Opening pressure: 12 cm. CSF volume and description: 11 cc of clear CSF Medications: 1% lidocaine for anaesthesia. Complications: None. Laboratories: As ordered by referring clinician. IMPRESSION: Successful fluoroscopically guided lumbar puncture. No immediate complications. Dictated by: Amina Hyman MD, PhD on 01/05/2019 at 17:37 Approved by: Amina Hyman MD, PhD on 01/05/2019 at 17:38
--- NOTE | 2019-01-05 02:12 | PM.HP.1 ---
History of Present Illness Date Patient Seen: 01/04/19 Time Patient Seen: 23:45 Chief complaint: WHOLE FACE NUMB/SWOLLEN,LEFT SIDE NUMB,NECK STIFF Narrative: This is a 38-year-old female patient with a history of gastric bypass and restless leg syndrome that presents to the emergency department for left-sided facial numbness and weakness and left-sided upper and lower extremity tingling and weakness. Patient states she woke with her symptoms at 6:00 a.m. this morning but did wake her sleep. She distally states that she got up at floor o'clock in morning to urinate and had no symptoms. She complains a severe dull and pounding headache that developed after waking with symptoms of numbness and tingling and weakness. She has associated symptoms photosensitivity, nausea, visual blurring and the sense of ?everything moving in slow motion on ?. Patient states she has never had symptoms such as this previously. She endorses a history of a mechanical fall in November at which time she did hit her head but sustained no loss of consciousness or injuries aside from broken toe. She denies complaints of chest pain or shortness of breath and has had no changes in bowel or bladder habits. She does inform me that she started her menstrual period yesterday. She indicates that the symptoms have remained constant and I have neither progressed nor improved. She came to the ER at the prompting of friends who noted that she was not acting herself. On admission to the ER the patient has stable vital signs with a blood pressure 124/66, heart rate of 74, respiratory rate of 15 and saturating 100% on room air and was afebrile at 98.2. While in the ER the patient had laboratories done which showed a CBC within normal limits as well as a chemistry panel that was normal except for an elevated BUN creatinine ratio. Was found to be 1 EKG was completed which is not available for review at this time. She was given aspirin 325 mg, Toradol, Ativan and Reglan for her symptoms. Had a head CT done which was negative for evidence of acute intercranial pathology as well as an MRI which showed no acute intracranial abnormalities with the angio, phonate finding no stenosis or occlusions in the anterior or posterior circulation. If further found normal carotid and vertebral circulation. The patient is admitted for new onset left hemiparesis. Patient History Medical History delivery delivered (Acute) Diabetes (Acute) Obesity (BMI 30.0-34.9) (Acute) Peptic ulcer (Acute) Restless leg syndrome (Acute) Surgical History Hx of cholecystectomy (Acute) Status post gastric bypass for obesity (Acute) Social History household members: children Smoking Status: Never smoker Comment: The patient is single and lives in a single family home with her 3 children. Significant other lives in [place]. Her parents are both living and her 5 there has had history of a stroke and her mother has history of hypertension and stroke. She has a brother with gout and Crohn's disease. She has a sister that patient states is a heroin addict. Occupation: Student previously working for [employer] Smoking: Never Alcohol consumption: Rare, social occasions Substance use: No recreational pharmaceuticals, no cannabis use this Advanced directives her friend Sonja Hall ([phone]) to be her surrogate decision maker Family & Social History Social History: household members children Prior Living Arrangements House Safety & Behavioral: Feels Safe in Current Yes Environment Been Physically Hurt or Yes Threatened By a Person Suicidal Ideation Description None Tobacco & Substance use: Smoking Status Never smoker alcohol intake frequency 0-2 drinks per day Substance Use Type does not use Meds Home Medications Medication Instructions Recorded Confirmed Type Liver Cleanse 1 dose PO DIRECTED 01/04/19 01/04/19 History multivitamin 1 tab PO DAILY 01/04/19 01/04/19 History multivitamin with minerals 1 tab PO DAILY 01/04/19 01/04/19 History [Hair,Skin and Nails] Allergies Allergy/AdvReac Type Severity Reaction Status Date / Time ceftriaxone [CEFTRIAXONE] Allergy Intermediate Verified 01/04/19 09:44 ketorolac [KETOROLAC] Allergy Intermediate Verified 01/04/19 09:44 acetaminophen [From VICODIN] Allergy Unknown Verified 01/04/19 09:44 enoxaparin [From LOVENOX] Allergy Unknown Verified 01/04/19 09:44 hydrocodone [From VICODIN] Allergy Unknown Verified 01/04/19 09:44 prednisone [PREDNISONE] Allergy Unknown Verified 01/04/19 09:44 MEDICATION FOR BLOOD CLOTS Allergy Intermediate Uncoded 01/04/19 09:44 Review of Systems Review of Systems Constitutional: Denies fevers, chills, sweats, fatigue, good appetite with stable weight Eyes: Positive for blurry vision and photophobia, Denies visual field loss,denies floaters, diplopia ENT: Positive for severe headache generalized, nuchal pain, stiffness, worse with movement, denies difficulty hearing changes, no nasal congestion, rhinorrhea, no dysphagia, sore throat or dentalgia Respiratory: Denies SOB, cough, exertional dyspnea, wheezing Cardiovascular: Denies chest pain, palpitations, orthostatic dizziness, syncope, edema Gastrointestinal: Positive for history of gastric bypass, nausea and vomiting, Denies abdominal pain, no reflux or bloating, constipation or diarrhea, denies blood in stool. Genitourinary: Positive for menstrual. Starting yesterday, denies complains of frequency, burning or urgency, hematuria on voiding Musculoskeletal: Positive for left arm and leg weakness, ataxia, denies falls, cramps, edema, myalgia or joint swelling. Integumentary: denies skin lesions, masses, rashes, hives, itching or hair loss Neurological: Positive for headache and nuchal stiffness with pain, photophobia, altered sensation left face arm and leg, slowed thoughts, denies dizziness, confusion, speech difficulties or seizures Psychiatric: denies disturbances in thought, attentions or mood, denies substance abuse Endocrine: denies excessive thirst or urination, goiter, lethargy, abnormal sweating, and heat/cold intolerance. Heme/lymph: Denies lymphadenopathy, abnormal bleeding or bruising Exam Vital Signs (past 8 hours): - 01/04/19 20:14 01/05/19 00:35 Temperature 97.9 F 97.9 F Pulse Rate 85 76 Respiratory Rate 17 18 Blood Pressure 99/59 L 110/70 Pulse Oximetry 98 97 Oxygen Delivery Method Room Air Oxygen Flow Rate 0 Narrative Exam Narrative: General: Well developed, obese female with BMI 31, who is afebrile but acutely ill-appearing. Skin: Warm, dry, pink, no rashes, no visible lesions HEENT: Slight left facial droop, slight left ptosis, PERRLA, EOMs intact without nystagmus, conjunctiva moist, sclera is anicteric, no ear pain, hearing grossly normal, no sinus tenderness to percussion, no rhinorrhea, oropharynx is moist and pink without lesions or exudate, uvula midline, posterior pharynx without inflammation, no cervical lymphadenopathy Neck: Acutely tender to palpation, pain with range of motion, no masses, thyroid non tender without thyromegaly or nodules, trachea midline, no carotid bruits or JVD, no supraclavicular lymphadenopathy Cardiac: Regular rate and rhythm, S1-S2, no murmur, no gallops or rubs, 2+ radial pulse, 1+ dorsalis pedis pulse, capillary refill is brisk, no edema Chest: Symmetrical movement, breathing non labored, no cough present, BS equal bilateral without coarseness, crackles or wheezes Abdomen: Soft, mild left lower quadrant tenderness on palpation without guarding, no masses or organomegaly, no flank or suprapubic pain, BS normal. Back: Normal curvature, no tenderness to palpation Extremities: Positive Kernig and slight Brudzinski sign, no synovial effusions or deformities, strength 5/5 right upper lower extremities, spastic muscular activity left upper and lower extremities Neuro: AAOx4, asymmetrical facies with slight left ptosis, positive Kernig and slight Brudzinski sign, distal sensation intact to light touch on the right blunted left upper and lower extremities Psych: Cooperative, anxious, thought linear and coherent, stable mood and congruent affect Objective Labs Result Diagrams: 01/04/19 10:05 01/04/19 10:05 Labs: Laboratory Results - last 24 hr 01/04/19 01/04/19 01/04/19 10:05 10:05 10:05 WBC 6.2 RBC 4.28 Hgb 13.3 Hct 39.4 MCV 92.1 MCH 31.2 MCHC 33.9 RDW 12.6 Plt Count 199 Neut % (Auto) 64.7 Lymph % (Auto) 26.5 [place] % (Auto) 6.8 Eos % (Auto) 1.6 L Baso % (Auto) 0.4 Neut # (Auto) 4000 Lymph # (Auto) 1600 [place] # (Auto) 400 Eos # (Auto) 100 Baso # (Auto) 0 PT 12.1 INR 1.1 APTT 32 Sodium 142 Potassium 4.4 Chloride 107 Carbon Dioxide 26 BUN 19 H Creatinine 0.90 Estimated GFR > 60.0 BUN/Creatinine Ratio 21.1 Glucose 100 Calcium 9.1 Assessment & Plan Assessment & Plan narrative: 1. Acute left hemiparesis, present on admission -differential diagnosis -CVA with strong family history verses TIA with no improvement in symptoms -migrainous hemiparesis, headache started after numbness and tingling -meningitis, positive Kernig Brudzinski sign -both CT and MR stroke evaluations were negative for intracranial pathology or circulatory compromise -patient remains afebrile without elevation in white count -INR is 1.1, status post gastric bypass precludes the use of oral aspirin, will administer per rectum -echocardiogram with bubble study per recommendation of [facility] neurology -patient will be monitored on telemetry -will obtain a lumbar puncture -will obtain echocardiogram with bubble study 2. Severe headache, acute, present on admission -generalized headache with associated visual changes, nausea and vomiting -severe neck pain to palpation, no trapezius tenderness -patient states has taken Percocet previously without incident. Percocet is ordered for pain management -work to rule out meningitis with a lumbar puncture 3. Status post gastric bypass, chronic -BMI 30.1 -will obtain iron panel -dietary consult -patient has impaired mobility but has been active without evidence of DVT -DVT prophylaxis with SCDs is implemented however the patient has multiple drug allergies to anticoagulants -Will administer ASA 600 mg [place] daily Time Spent With Patient Time with patient: 25 - 35 minutes Scores ABCD2 Age >= 60 years: no Initial BP. Either SBP >= 140 or DBP >= 90.: no Clinical features of the TIA: unilateral weakness Duration of symptoms: >= 60 minutes History of diabetes: no ABCD2 Score: 4 NIHSS Level of Conciousness: Alert, keenly responsive Ask month/age: Answers both questions correctly. Open/close eyes, close hand: Performs both tasks correctly Best gaze horizontal: Partial gaze palsy, can be overcome by finger tracking, head turning Visual chanel: No visual loss Facial palsy: Minor paralysis, flattened nasolabial fold, asymmetry on smiling Left arm drift: Drifts down, not to bed Right arm drift: No drift for full 10 sec Left leg drift: Some effort against gravity, cannot maintain, drifts down to bed Right leg drift: No drift for full 10 sec Limb ataxia: Present in one limb Sensory on face/arms/legs: Mild to moderate sensory loss, can tell touch Best language: No aphasia, normal Dysarthria: Normal Extinction or inattention: No abnormality Total NIH Stroke scale score: 7 CHADS-VASc Congestive heart failure: no Hypertension: no Age 75 years or older: no Diabetes mellitus: no Stroke, TIA, or TE: yes Vascular disease: no Age 65 to 74 years: no Sex category (female): Female CHADS-VASc Score: 3 Quality VTE Deep Vein Thrombosis/Pulmonary Embolism Present on Admission: No
--- NOTE | 2019-01-05 02:21 | P.HP_ITS ---
History of Present Illness Date Patient Seen: 01/04/19 Time Patient Seen: 23:45 Chief complaint: WHOLE FACE NUMB/SWOLLEN,LEFT SIDE NUMB,NECK STIFF Narrative: This is a 38-year-old female patient with a history of gastric bypass and restless leg syndrome that presents to the emergency department for left- sided facial numbness and weakness and left-sided upper and lower extremity tingling and weakness. Patient states she woke with her symptoms at 6:00 a.m. this morning but did wake her sleep. She distally states that she got up at floor o'clock in morning to urinate and had no symptoms. She complains a severe dull and pounding headache that developed after waking with symptoms of numbness and tingling and weakness. She has associated symptoms photosensitivity, nausea, visual blurring and the sense of ?everything moving in slow motion on ?. Patient states she has never had symptoms such as this previously. She endorses a history of a mechanical fall in November at which time she did hit her head but sustained no loss of consciousness or injuries aside from broken toe. She denies complaints of chest pain or shortness of breath and has had no changes in bowel or bladder habits. She does inform me that she started her menstrual period yesterday. She indicates that the symptoms have remained constant and I have neither progressed nor improved. She came to the ER at the prompting of friends who noted that she was not acting herself. On admission to the ER the patient has stable vital signs with a blood pressure 124/66, heart rate of 74, respiratory rate of 15 and saturating 100% on room air and was afebrile at 98.2. While in the ER the patient had laboratories done which showed a CBC within normal limits as well as a chemistry panel that was normal except for an elevated BUN creatinine ratio. Was found to be 1 EKG was completed which is not available for review at this time. She was given aspirin 325 mg, Toradol, Ativan and Reglan for her symptoms. Had a head CT done which was negative for evidence of acute intercranial pathology as well as an MRI w [facility] showed no acute intracranial abnormalities with the angio, phonate finding no stenosis or occlusions in the anterior or posterior circulation. If further found normal carotid and vertebral circulation. The patient is admitted for new onset left hemiparesis. Patient History Medical History delivery delivered (Acute) Diabetes (Acute) Obesity (BMI 30.0-34.9) (Acute) Peptic ulcer (Acute) Restless leg syndrome (Acute) Surgical History Hx of cholecystectomy (Acute) Status post gastric bypass for obesity (Acute) Social History household members: children Smoking Status: Never smoker Comment: The patient is single and lives in a single family home with her 3 children. Significant other lives in [place]. Her parents are both living and her 5 there has had history of a stroke and her mother has history of hypertension and stroke. She has a brother with gout and Crohn's disease. She has a sister that patient states is a heroin addict. Occupation: Student previously working for [employer] Smoking: Never Alcohol consumption: Rare, social occasions Substance use: No recreational pharmaceuticals, no cannabis use this Advanced directives her friend Sonja Hall ([phone]) to be her surrogate decision maker Family & Social History Social History: household members children Prior Living Arrangements House Safety & Behavioral: Feels Safe in Current Yes Environment Been Physically Hurt or Yes Threatened By a Person Suicidal Ideation Description None Tobacco & Substance use: Smoking Status Never smoker alcohol intake frequency 0-2 drinks per day Substance Use Type does not use Meds Home Medications Medication Instructions Recorded Confirmed Type Liver Cleanse 1 dose PO DIRECTED 01/04/19 01/04/19 History multivitamin 1 tab PO DAILY 01/04/19 01/04/19 History multivitamin with minerals 1 tab PO DAILY 01/04/19 01/04/19 History [Hair,Skin and Nails] Allergies Allergy/AdvReac Type Severity Reaction Status Date / Time ceftriaxone [CEFTRIAXONE] Allergy Intermediate Verified 01/04/19 09:44 ketorolac [KETOROLAC] Allergy Intermediate Verified 01/04/19 09:44 acetaminophen [From VICODIN] Allergy Unknown Verified 01/04/19 09:44 enoxaparin [From LOVENOX] Allergy Unknown Verified 01/04/19 09:44 hydrocodone [From VICODIN] Allergy Unknown Verified 01/04/19 09:44 prednisone [PREDNISONE] Allergy Unknown Verified 01/04/19 09:44 MEDICATION FOR BLOOD CLOTS Allergy Intermediate Uncoded 01/04/19 09:44 Review of Systems Review of Systems Constitutional: Denies fevers, chills, sweats, fatigue, good appetite with stable weight Eyes: Positive for blurry vision and photophobia, Denies visual field loss,peggy es floaters, diplopia ENT: Positive for severe headache generalized, nuchal pain, stiffness, worse with movement, denies difficulty hearing changes, no nasal congestion, rhinorrhea, no dysphagia, sore throat or dentalgia Respiratory: Denies SOB, cough, exertional dyspnea, wheezing Cardiovascular: Denies chest pain, palpitations, orthostatic dizziness, syncope, edema Gastrointestinal: Positive for history of gastric bypass, nausea and vomiting, Denies abdominal pain, no reflux or bloating, constipation or diarrhea, denies blood in stool. Genitourinary: Positive for menstrual. Starting yesterday, denies complains of frequency, burning or urgency, hematuria on voiding Musculoskeletal: Positive for left arm and leg weakness, ataxia, denies falls, cramps, edema, myalgia or joint swelling. Integumentary: denies skin lesions, masses, rashes, hives, itching or hair loss Neurological: Positive for headache and nuchal stiffness with pain, photophobia, altered sensation left face arm and leg, slowed thoughts, denies dizziness, confusion, speech difficulties or seizures Psychiatric: denies disturbances in thought, attentions or mood, denies substance abuse Endocrine: denies excessive thirst or urination, goiter, lethargy, abnormal sweating, and heat/cold intolerance. Heme/lymph: Denies lymphadenopathy, abnormal bleeding or bruising Exam Vital Signs (past 8 hours): - 01/04/19 20:14 01/05/19 00:35 Temperature 97.9 F 97.9 F Pulse Rate 85 76 Respiratory Rate 17 18 Blood Pressure 99/59 L 110/70 Pulse Oximetry 98 97 Oxygen Delivery Method Room Air Oxygen Flow Rate 0 Narrative Exam Narrative: General: Well developed, obese female with BMI 31, who is afebrile but acutely ill-appearing. Skin: Warm, dry, pink, no rashes, no visible lesions HEENT: Slight left facial droop, slight left ptosis, PERRLA, EOMs intact without nystagmus, conjunctiva moist, sclera is anicteric, no ear pain, hearing grossly normal, no sinus tenderness to percussion, no rhinorrhea, oropharynx is moist and pink without lesions or exudate, uvula midline, posterior pharynx without inflammation, no cervical lymphadenopathy Neck: Acutely tender to palpation, pain with range of motion, no masses, thyroid non tender without thyromegaly or nodules, trachea midline, no carotid bruits or JVD, no supraclavicular lymphadenopathy Cardiac: Regular rate and rhythm, S1-S2, no murmur, no gallops or rubs, 2+ radial pulse, 1+ dorsalis pedis pulse, capillary refill is brisk, no edema Chest: Symmetrical movement, breathing non labored, no cough present, BS equal bilateral without coarseness, crackles or wheezes Abdomen: Soft, mild left lower quadrant tenderness on palpation without guarding, no masses or organomegaly, no flank or suprapubic pain, BS normal. Back: Normal curvature, no tenderness to palpation Extremities: Positive Kernig and slight Brudzinski sign, no synovial effusions or deformities, strength 5/5 right upper lower extremities, spastic muscular activity left upper and lower extremities Neuro: AAOx4, asymmetrical facies with slight left ptosis, positive Kernig and slight Brudzinski sign, distal sensation intact to light touch on the right blunted left upper and lower extremities Psych: Cooperative, anxious, thought linear and coherent, stable mood and congruent affect Objective Labs Result Diagrams: 01/04/19 10:05 01/04/19 10:05 Labs: Laboratory Results - last 24 hr 01/04/19 01/04/19 01/04/19 10:05 10:05 10:05 WBC 6.2 RBC 4.28 Hgb 13.3 Hct 39.4 MCV 92.1 MCH 31.2 MCHC 33.9 RDW 12.6 Plt Count 199 Neut % (Auto) 64.7 Lymph % (Auto) 26.5 [place] % (Auto) 6.8 Eos % (Auto) 1.6 L Baso % (Auto) 0.4 Neut # (Auto) 4000 Lymph # (Auto) 1600 [place] # (Auto) 400 Eos # (Auto) 100 Baso # (Auto) 0 PT 12.1 INR 1.1 APTT 32 Sodium 142 Potassium 4.4 Chloride 107 Carbon Dioxide 26 BUN 19 H Creatinine 0.90 Estimated GFR > 60.0 BUN/Creatinine Ratio 21.1 Glucose 100 Calcium 9.1 Assessment & Plan Assessment & Plan narrative: 1. Acute left hemiparesis, present on admission -differential diagnosis -CVA with strong family history verses TIA with no improvement in symptoms -migrainous hemiparesis, headache started after numbness and tingling -meningitis, positive Kernig Brudzinski sign -both CT and MR stroke evaluations were negative for intracranial pathology or circulatory compromise -patient remains afebrile without elevation in white count -INR is 1.1, status post gastric bypass precludes the use of oral aspirin, will administer per rectum -echocardiogram with bubble study per recommendation of [facility] neurology -patient will be monitored on telemetry -will obtain a lumbar puncture -will obtain echocardiogram with bubble study 2. Severe headache, acute, present on admission -generalized headache with associated visual changes, nausea and vomiting -severe neck pain to palpation, no trapezius tenderness -patient states has taken Percocet previously without incident. Percocet is ordered for pain management -work to rule out meningitis with a lumbar puncture 3. Status post gastric bypass, chronic -BMI 30.1 -will obtain iron panel -dietary consult -patient has impaired mobility but has been active without evidence of DVT -DVT prophylaxis with SCDs is implemented however the patient has multiple drug allergies to anticoagulants -Will administer ASA 600 mg [place] daily Time Spent With Patient Time with patient: 25 - 35 minutes Scores ABCD2 Age >= 60 years: no Initial BP. Either SBP >= 140 or DBP >= 90.: no Clinical features of the TIA: unilateral weakness Duration of symptoms: >= 60 minutes History of diabetes: no ABCD2 Score: 4 NIHSS Level of Conciousness: Alert, keenly responsive Ask month/age: Answers both questions correctly. Open/close eyes, close hand: Performs both tasks correctly Best gaze horizontal: Partial gaze palsy, can be overcome by finger tracking, head turning Visual chanel: No visual loss Facial palsy: Minor paralysis, flattened nasolabial fold, asymmetry on smiling Left arm drift: Drifts down, not to bed Right arm drift: No drift for full 10 sec Left leg drift: Some effort against gravity, cannot maintain, drifts down to bed Right leg drift: No drift for full 10 sec Limb ataxia: Present in one limb Sensory on face/arms/legs: Mild to moderate sensory loss, can tell touch Best language: No aphasia, normal Dysarthria: Normal Extinction or inattention: No abnormality Total NIH Stroke scale score: 7 CHADS-VASc Congestive heart failure: no Hypertension: no Age 75 years or older: no Diabetes mellitus: no Stroke, TIA, or TE: yes Vascular disease: no Age 65 to 74 years: no Sex category (female): Female CHADS-VASc Score: 3 Quality VTE Deep Vein Thrombosis/Pulmonary Embolism Present on Admission: No
[2019-01-05] MEDS: OXYCODONE/ACETAMINOPHEN 5/325 TABLET 1 TAB PO (02:32)
[2019-01-05] MEDS: SODIUM CHLORIDE 0.9% 1,000 ML 100 ML IV ×2 (02:47→12:17)
[2019-01-05 03:26] LABS: Urine Amphetamines Negative (Negative); Urine Barbiturates Negative (Negative); Urine Benzodiazepines Positive (Negative); Urine Cocaine Negative (Negative); Urine MDMA Negative (Negative); Urine Methadone Negative (Negative); Urine Methamphetamines Negative (Negative); Urine Morphine/Opi cutoff 2000 Positive (Negative); Urine Oxycodone Negative (Negative); Urine Phencyclidine Negative (Negative); Urine Tetrahydrocannabinol Negative (Negative); Urine Tricyclic Antidepressant Positive (Negative)
[2019-01-05] MEDS: OXYCODONE/ACETAMINOPHEN 5/325 TABLET 2 TAB PO ×5 (03:28→21:55)
[2019-01-05 04:01] LABS: Bacteria Urine Many (>30); RBC Urine 30-100/HPF (0-5/HPF); Squamous Epithelial Cell Urine 10-30 /HPF; WBC Urine 0-1/HPF (0-5/HPF)
[2019-01-05 04:02] LABS: Culture Indicated Urine Cult Not Indicated
--- NOTE | 2019-01-05 06:08 | PC.NURSE ---
NOC Note: Pt place on droplet precautions per [employer] to rule out meningitis. Pt reports pain 7-8/10 to neck and left shoulder, NIH 7-8 this shift. Pt is fearful of use of torodal and reglan reporting that she had an adverse reaction to one or both of them while in the ED. Pt only napping off and on this shift, mildly anxious at times.
[2019-01-05 06:37] LABS: Add Manual Diff / Slide Review NO; Basophils Absolute Auto 0 /uL (0-100); Basophils Percent Auto 0.6 % (0-2); Eosinophils Absolute Auto 100 /uL (0-450); Eosinophils Percent Auto 1.6 % (2-4); Hematocrit 35.1 % (36-46); Hemoglobin 12.1 g/dL (12.0-16.0); Lymphocytes Absolute Auto 2000 /uL (1100-4500); Lymphocytes Percent Auto 34.5 % (25-40); Mean Corpuscular HGB Conc 34.5 % (30-36); Mean Corpuscular Hemoglobin 30.9 PG (26-34); Mean Corpuscular Volume 89.7 fL (80-100); Monocytes Absolute Auto 400 /uL (0-900); Monocytes Percent Auto 6.2 % (3-14); Neutrophils Absolute Auto 3300 /uL (1500-7000); Neutrophils Percent Auto 57.1 % (50-75); Platelet Count 171 X10^3/uL (150-400); Red Blood Cell Count 3.91 X10^6/uL (4.0-5.2); Red Cell Distribution Width 12.7 % (11.6-14.8); White Blood Cell Count 5.8 X10^3/uL (4.5-11.0)
[2019-01-05 06:42] LABS: Blood Urea Nitrogen 22 mg/dL (7-17); Calcium 8.3 mg/dL (8.4-10.2); Carbon Dioxide 24 mmol/L (22-32); Chloride 108 mmol/L (98-107); Estimated Glomerular Filt Rate > 60.0 mL/min (>60); Glucose 110 mg/dL (70-100); HEMOLYSIS < 15 (0-50); Potassium 3.9 mmol/L (3.4-5.1); Sodium 139 mmol/L (137-145)
[2019-01-05 06:53] LABS: Cholesterol 111 mg/dL (140-199); HDL Cholesterol 34 mg/dL (40-60); LDL Cholesterol Calculated 58 mg/dL (<100); Triglycerides 96 mg/dL (35-150)
[2019-01-05 07:00] LABS: HEMOLYSIS < 15 (0-50); Iron 56 ug/dL (37-170)
[2019-01-05 07:11] LABS: Percent Iron Saturation 15 % (15-50); Total Iron Binding Capacity 373 ug/dL (265-497); Transferrin 278 mg/dL (206-381)
[2019-01-05 07:41] LABS: Procalcitonin < 0.05 ng/mL (<0.5)
--- NOTE | 2019-01-05 11:58 | PT.IPTN ---
Current Diagnoses Hemiplegic migraine, not intractable, without status migrainosus (01/04/19) Transient cerebral ischemic attack, unspecified (01/04/19) Physical Therapy Treatment Note M3 PT-IP Subjective Start: 01/05/19 11:57 Freq: NEEDED Status: Active Protocol: Document 01/05/19 11:30 AB (Rec: 01/05/19 11:58 AB [id number]) Subjective Physical Therapy Visit Type Notes talked to nurse and stated that pt is getting a bubble study. will check on pt again this afternoon.
--- NOTE | 2019-01-05 12:14 | OT.IP.TRT ---
Current Diagnoses Hemiplegic migraine, not intractable, without status migrainosus (01/04/19) Transient cerebral ischemic attack, unspecified (01/04/19) Occupational Therapy Treatment Note M3 OT- IP Subjective and Pain Start: 01/05/19 12:12 Freq: Status: Active Protocol: Document 01/05/19 12:12 [facility] (Rec: 01/05/19 12:13 [facility] [id number]) OT- Subjective Occupational Therapy Visit Type Type Patient Unavailable Notes Pt to get bubble study done today , therefore wait to do OT eval tomorrow or when appropriate.
--- NOTE | 2019-01-05 13:18 | P.PN_ITS ---
Subjective Date Patient Seen: 01/05/19 Interval history: She is seen today to follow up the left-sided neck and head pain. She is also experiencing deviation of the tongue to the right along with a right-sided facial droop. She is pending a lumbar puncture today to rule out possible meningitis. This has some features of Torrez's palsy but the neck pain is somewhat atypical. Exam Vital Signs (past 8 hours): - 01/05/19 08:00 01/05/19 08:05 Temperature 98.7 F Pulse Rate 82 Respiratory Rate 18 Blood Pressure 126/82 Pulse Oximetry 97 96 Oxygen Delivery Method Room Air Oxygen Flow Rate 0 Narrative Exam Narrative: She is complaining of numbness and headache on the left face and neck. She is alert and oriented x3. Her tongue deviates to the right and she has a right-sided facial droop. The range of motion of the neck is quite diminished with both forward flexion and backward extension along with rotation to the right and side bending to the left. She is tender along the cervical spine and to the left neck muscles. Heart is regular rate and rhythm without murmur. Lungs are clear to auscultation bilaterally. Extremities are no ankle edema. Objective Labs Result Diagrams: 01/05/19 06:14 01/05/19 06:14 Labs: Laboratory Results - last 24 hr 01/05/19 01/05/19 01/05/19 02:50 02:50 06:14 WBC 5.8 RBC 3.91 L Hgb 12.1 Hct 35.1 L MCV 89.7 MCH 30.9 MCHC 34.5 RDW 12.7 Plt Count 171 Neut % (Auto) 57.1 Lymph % (Auto) 34.5 Hamilton % (Auto) 6.2 Eos % (Auto) 1.6 L Baso % (Auto) 0.6 Neut # (Auto) 3300 Lymph # (Auto) 2000 Hamilton # (Auto) 400 Eos # (Auto) 100 Baso # (Auto) 0 Sodium Potassium Chloride Carbon Dioxide BUN Creatinine Estimated GFR BUN/Creatinine Ratio Glucose Calcium Iron TIBC % Saturation Transferrin Triglycerides Cholesterol LDL Cholesterol, Calc HDL Cholesterol Procalcitonin Urine RBC 30-100/hpf H Urine WBC 0-1/hpf Ur Squamous Epith Cells 10-30 /hpf H Urine Bacteria Many (>30) H Ur Culture Indicated? Cult not indicated Micro UA Comment * Urine Opiates Screen Positive H Ur Oxycodone Screen Negative Urine Methadone Screen Negative Ur Barbiturates Screen Negative U Tricyclic Antidepress Positive H Ur Phencyclidine Scrn Negative Ur Amphetamines Screen Negative U Methamphetamines Scrn Negative Ur MDMA Scrn (Ecstasy) Negative U Benzodiazepines Scrn Positive H Urine Cocaine Screen Negative U Marijuana (THC) Screen Negative 01/05/19 01/05/19 01/05/19 06:14 06:14 06:14 WBC RBC Hgb Hct MCV MCH MCHC RDW Plt Count Neut % (Auto) Lymph % (Auto) Hamilton % (Auto) Eos % (Auto) Baso % (Auto) Neut # (Auto) Lymph # (Auto) Hamilton # (Auto) Eos # (Auto) Baso # (Auto) Sodium 139 Potassium 3.9 Chloride 108 H Carbon Dioxide 24 BUN 22 H Creatinine 1.00 Estimated GFR > 60.0 BUN/Creatinine Ratio 22.0 Glucose 110 H Calcium 8.3 L Iron TIBC % Saturation Transferrin Triglycerides 96 Cholesterol 111 L LDL Cholesterol, Calc 58 HDL Cholesterol 34 L Procalcitonin < 0.05 Urine RBC Urine WBC Ur Squamous Epith Cells Urine Bacteria Ur Culture Indicated? Micro UA Comment Urine Opiates Screen Ur Oxycodone Screen Urine Methadone Screen Ur Barbiturates Screen U Tricyclic Antidepress Ur Phencyclidine Scrn Ur Amphetamines Screen U Methamphetamines Scrn Ur MDMA Scrn (Ecstasy) U Benzodiazepines Scrn Urine Cocaine Screen U Marijuana (THC) Screen 01/05/19 06:14 WBC RBC Hgb Hct MCV MCH MCHC RDW Plt Count Neut % (Auto) Lymph % (Auto) Hamilton % (Auto) Eos % (Auto) Baso % (Auto) Neut # (Auto) Lymph # (Auto) Hamilton # (Auto) Eos # (Auto) Baso # (Auto) Sodium Potassium Chloride Carbon Dioxide BUN Creatinine Estimated GFR BUN/Creatinine Ratio Glucose Calcium Iron 56 TIBC 373 % Saturation 15 Transferrin 278 Triglycerides Cholesterol LDL Cholesterol, Calc HDL Cholesterol Procalcitonin Urine RBC Urine WBC Ur Squamous Epith Cells Urine Bacteria Ur Culture Indicated? Micro UA Comment Urine Opiates Screen Ur Oxycodone Screen Urine Methadone Screen Ur Barbiturates Screen U Tricyclic Antidepress Ur Phencyclidine Scrn Ur Amphetamines Screen U Methamphetamines Scrn Ur MDMA Scrn (Ecstasy) U Benzodiazepines Scrn Urine Cocaine Screen U Marijuana (THC) Screen Assessment & Plan Assessment & Plan narrative: 1. Acute left hemiparesis, present on admission, now resolved except for residual right-sided facial symptoms. -differential diagnosis -CVA with strong family history verses TIA with no improvement in symptoms -migrainous hemiparesis, headache started after numbness and tingling -meningitis, positive Kernig Brudzinski sign -both CT and MR stroke evaluations were negative for intracranial pathology or circulatory compromise -patient remains afebrile without elevation in white count -INR is 1.1, status post gastric bypass precludes the use of oral aspirin, will administer per rectum -echocardiogram with bubble study per recommendation of [facility] -patient will be monitored on telemetry -lumbar puncture studies of cell count, cytology, glucose, HSV, protein are pending. -echocardiogram with bubble study pending. 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 -consider steroid therapy and cervical spine imaging. 2. Severe headache, acute, present on admission -generalized headache with associated visual changes, nausea and vomiting -severe neck pain to palpation, no trapezius tenderness -work up to rule out meningitis with a lumbar puncture 3. Status post gastric bypass, chronic -BMI 30.1 -will obtain iron panel -dietary consult -patient has impaired mobility but has been active without evidence of DVT -DVT prophylaxis with SCDs is implemented however the patient has multiple drug allergies to anticoagulants -Will administer ASA 600 mg [place] daily Quality VTE Deep Vein Thrombosis/Pulmonary Embolism Present on Admission: No
--- NOTE | 2019-01-05 14:30 | PT.IPTN ---
Current Diagnoses Hemiplegic migraine, not intractable, without status migrainosus (01/04/19) Transient cerebral ischemic attack, unspecified (01/04/19) Physical Therapy Treatment Note M3 PT-IP Subjective Start: 01/05/19 11:57 Freq: NEEDED Status: Active Protocol: Document 01/05/19 14:24 AB (Rec: 01/05/19 14:30 AB [id number]) Subjective Physical Therapy Visit Type Notes Checked to see pt for PT but pt is not in the room. nurse stated that pt is out for a lumbar puncture procedure. will f/u.
--- NOTE | 2019-01-05 14:54 | PC.NURSE ---
Day Shift- Pt had a light breakfast, after 0830, NPO for LP procedure, time unknown. IVF infusing well to right AC PIV. Pt reported pain to behind left eye, left side head, neck. Pain decreased with prn Percocet given at 0750/1200. NIH score 7 this AM. Pt has weakness to left arm and leg with shaky limbs with elevation off bed. pt able to ambulate OOB with SBA, steady gait, states she leans more onto her right non affected side. Pt had a stressful phone call with her youngest kaylynn' father and pt reported her heart pounding. cardiac cath technician read HR as 110-117. Otherwise HR on monitor has been 70-80s upon this writers check. Pt to get LP via wheelchair around 1320 and back at 1435. ECHO bubble study done around 1100. Pt uses call light appropriately.
[2019-01-05 15:02] LABS: Appearance CSF Clear (Clear); CSF Tube Number 4; Color CSF Colorless (Colorless); Red Blood Cell CSF 0 RBC /uL; White Blood Cell CSF 2.5 MONO/uL (0-5)
[2019-01-05 15:44] LABS: Glucose CSF 47 mg/dL (40-70); Total Protein CSF 52 mg/dL (12-60)
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
[2019-01-05] MEDS: PROMETHAZINE 12.5 MG SUPP PR (16:33)
[2019-01-05] MEDS: GABAPENTIN 300 MG CAPSULE PO (20:59)
[2019-01-06] VITALS (9 sets, daily range): BP systolic 99–130; BP diastolic 57–90; PULSE 66–84; RESP 15–18; TEMP 36.5–36.8; O2SAT 96–98
--- NOTE | 2019-01-06 | DI.MRI.S_ITS ---
PROCEDURE: MR HEAD/BRAIN WO CON INDICATIONS: Hemiparesis,left sided TECHNIQUE: Noncontrast axial T1 spin echo, axial T2 fast spin echo, sagittal and axial FLAIR, coronal T2 fast spin echo, axial gradient echo, axial diffusion and ADC through the brain. COMPARISON: [facility], MR, MR STROKE, 01/04/2019, 11:00. FINDINGS: Image quality: Excellent. CSF Spaces: Basal cisterns are patent. No extra-axial fluid collections. Ventricles are normal in size and shape. Brain: No intracranial masses or hemorrhage. Baez/white matter interface is normal. Brainstem appears normal. Diffusion-weighted images demonstrate no acute ischemic insult. No chronic ischemic insults. Normal intravascular flow voids are present. Skull and face: Calvarium has normal marrow signal. Orbits appear normal. Sinuses: Sinuses and mastoids are clear. IMPRESSION: 1. No acute intracranial process. Dictated by: Sonia Anaya M.D. on 01/06/2019 at 16:27 Approved by: Sonia Anaya M.D. on 01/06/2019 at 16:28
[2019-01-06] MEDS: OXYCODONE/ACETAMINOPHEN 5/325 TABLET 2 TAB PO ×3 (02:59→13:00)
--- NOTE | 2019-01-06 04:00 | PC.NURSE ---
Noc Note Pt had a total of 3 IV start attempted this shift, the final IV was patent but the patient requested it be removed stating it was uncomfortable and I am over it, I do not want you to poke me anymore, RADHA Patel notifiied and IV fluids DC's, Tele DC'd as well.
[2019-01-06 06:16] LABS: Add Manual Diff / Slide Review NO; Basophils Absolute Auto 0 /uL (0-100); Basophils Percent Auto 0.7 % (0-2); Eosinophils Absolute Auto 100 /uL (0-450); Eosinophils Percent Auto 1.4 % (2-4); Hemoglobin 12.2 g/dL (12.0-16.0); Lymphocytes Absolute Auto 2200 /uL (1100-4500); Lymphocytes Percent Auto 39.2 % (25-40); Mean Corpuscular HGB Conc 33.8 % (30-36); Mean Corpuscular Hemoglobin 31.3 PG (26-34); Mean Corpuscular Volume 92.6 fL (80-100); Monocytes Absolute Auto 400 /uL (0-900); Monocytes Percent Auto 6.5 % (3-14); Neutrophils Absolute Auto 3000 /uL (1500-7000); Neutrophils Percent Auto 52.2 % (50-75); Platelet Count 168 X10^3/uL (150-400); Red Blood Cell Count 3.89 X10^6/uL (4.0-5.2); Red Cell Distribution Width 12.8 % (11.6-14.8); White Blood Cell Count 5.7 X10^3/uL (4.5-11.0)
[2019-01-06 06:25] LABS: BUN Creatinine Ratio 17.8 (6-22); Blood Urea Nitrogen 16 mg/dL (7-17); Calcium 8.9 mg/dL (8.4-10.2); Carbon Dioxide 24 mmol/L (22-32); Chloride 106 mmol/L (98-107); Estimated Glomerular Filt Rate > 60.0 mL/min (>60); Glucose 95 mg/dL (70-100); HEMOLYSIS < 15 (0-50); Potassium 4.3 mmol/L (3.4-5.1); Sodium 139 mmol/L (137-145)
[2019-01-06] MEDS: ONDANSETRON 4 MG ODT 8 MG SL ×2 (08:56→19:12)
[2019-01-06 09:04] LABS: Cryptococcus neoformans/gattii Not Detected (Not Detect); Enterovirus Not Detected (Not Detect); Escherichia coli K1 Not Detected (Not Detect); Haemophilus influenzae Not Detected (Not Detect); Herpes simplex virus 1 Not Detected (Not Detect); Herpes simplex virus 2 Not Detected (Not Detect); Human herpesvirus 6 Not Detected (Not Detect); Human parechovirus Not Detected (Not Detect); Listeria monocytogenes Not Detected (Not Detect); Neisseria meningitidis Not Detected (Not Detect); Streptococcus agalactiae Not Detected (Not Detect); Streptococcus pneumoniae Not Detected (Not Detect); Varicella Zoster Virus Not Detected
--- NOTE | 2019-01-06 09:48 | PT.IIE ---
Current Diagnoses Hemiplegic migraine, not intractable, without status migrainosus (01/04/19) Transient cerebral ischemic attack, unspecified (01/04/19) Surgical History (Last Updated 01/05/19 @ 02:27 by RADHA Hanna) Hx of cholecystectomy (Acute) Status post gastric bypass for obesity (Acute) Medical History (Last Updated 01/05/19 @ 02:27 by RADHA Hanna) delivery delivered (Acute) Diabetes (Acute) Obesity (BMI 30.0-34.9) (Acute) Peptic ulcer (Acute) Restless leg syndrome (Acute) Physical Therapy Inpatient Evaluation/Re-Eval M1 PT/OT-IP Prior Functional Status Start: 01/05/19 11:57 Freq: NEEDED Status: Active Protocol: Document 01/06/19 09:48 AB (Rec: 01/06/19 11:50 AB [id number]) Medical Review Prior Functional Status Medical History Reviewed Yes Communication able to make needs known Mobility and Gait stated that she is independent with all mobilities and ambulation without AD Social History Household Members children Living Arrangements House Number of Floors (Floors) Two Floors Number of Stairs To Enter/Railing? pt lives in a town house; has 2 steps to enter without rails ; has 10 steps +landing+2 steps with L rail ascending Home Environment Standard Height Toilet Tub/Shower Employment Status Student Additional Social History Comment pt has 3 children(14 y/o is the the eldest and a 13 month old is the youngest) M2 PT-IP Current Condition Start: 01/05/19 11:57 Freq: NEEDED Status: Active Protocol: Document 01/06/19 09:48 AB (Rec: 01/06/19 11:50 AB [id number]) Physical Therapy Current Condition Current Condition Evaluation Date 01/06/19 Treatment Diagnosis L sided weakness; difficulty in walking Onset Date 01/04/19 M3 PT-IP Subjective Start: 01/05/19 11:57 Freq: NEEDED Status: Active Protocol: Document 01/06/19 09:48 AB (Rec: 01/06/19 11:50 AB [id number]) Subjective Physical Therapy Visit Type Type Initial Evaluation Visit Start Time 09:48 Visit Stop Time 10:16 Total Visit Minutes 28 Number of INFLATABLE BUILDINGS LAMINATOR Visits 0 Physical Therapy Visit Comments Patient Comments pt agreeable to do PT Therapy Pain Assessment Pain When Pain Assessed At Rest Pain Present Pain Present Pain Reported Location Left Neck Intensity 4 M4 PT-IP Mobility and Gait Start: 01/05/19 11:57 Freq: NEEDED Status: Active Protocol: Document 01/06/19 09:48 AB (Rec: 01/06/19 11:50 AB [id number]) PT-Bed Mobility Assessment Supine to Sit Supine to Sit Independent Sit to Supine Sit to Supine Independent PT-Transfer Assessment Sit to and From Stand Sit to and from Stand Standby Assistance Equipment Transfer Assistive Device None Gait Belt Orthotic/Prosthetic Devices or Brace: No Transfers Transfer Destination Toilet Transfer Technique pt ambulated to the toilet Transfer Ability Level of Assist Contact Guard Assistance Comments Mobility Comments pt with unsteady gait and tends to hold on to the wall, bed frame, counter for support Gait Assessment Gait Gait Assistance Required: Contact Guard Assist Minimum Assistance Distance (Feet) 20 Able to Maintain Weight Bearing Status Yes During Gait Assistive Devices Assistive Device None Gait Belt Straight Cane Orthotic/Prosthetic Devices or Brace: No Gait Deviations General Gait Pattern Antalgic Decreased Stride Length Decreased Feet Clearance Factors Limiting Gait Function Factors Limiting Gait Function Decreased Activity Tolerance Decreased Sensation Decreased Strength Pain Poor Balance Comments Gait Comments pt completed ambulation without AD ~ 15 ft CGA to min A and cues. pt with unsteady gait and tends to hold on to counter/bed frame for support. assessed ambulation using SPC and pt requiring CGA to min A but seemed steadier than without AD. PT-Balance Assessment Sitting Balance and Reactions Static Sitting Balance Ability Good Dynamic Sitting Balance Ability Good Standing Balance and Reactions Static Standing Balance Ability Fair Dynamic Standing Balance Ability Poor Device Used without AD Functional Assessments Functional Tests Tinetti Balance and Gait Assessment balance score: 8/16 gait score 4/12 total score 12/28 Other Functional Tests Performed attempetd to do sit <>stand but pt unable to complete without use of UE M5 PT-IP Objective Assessments Start: 01/05/19 11:57 Freq: NEEDED Status: Active Protocol: Document 01/06/19 09:48 AB (Rec: 01/06/19 11:50 AB [id number]) Orientation Orientation/Cognition Level of Alertness Alert Orientation Name Age Birthday Month Date Year Day of Week Place Situation Safety Awareness Understands Safety Issues Gross Range of Motion Lower Extremity ROM Assessment Within Functional Limits Strength Lower Extremity Strength Assessment Left Impaired Hip 3/5 Knee 3-/5 Sensation Assessment Sensation Gross Sensation Left LE Impaired Light Touch Impaired Sensation Description Numbness M6 PT-IP Treatment Start: 01/05/19 11:57 Freq: NEEDED Status: Active Protocol: Document 01/06/19 09:48 AB (Rec: 01/06/19 11:50 AB [id number]) Physical Therapy Treatment Exercises Exercises Quad Sets Seated Knee Flexion/Extension Education Education Provided Safety M7 PT-IP Assessment and Plan Start: 01/05/19 11:57 Freq: NEEDED Status: Active Protocol: Document 01/06/19 09:48 AB (Rec: 01/06/19 11:50 AB [id number]) PT Summary Assessment and Plan Potential Rehabilitation Potential Fair Status of Condition at Evaluation Evolving Summary Impairments Pain ROM Strength Balance Coordination Sensation Tone Cognition Bed Mobility Transfers Gait Activity Tolerance Assessment Summary pt requiring one person assist at this time. d/c plan depending on progress but pt may require acute rehab to improve strenght, standing balance and ambulation. Goals Transfer Goal Independent Cane Gait Goal Independent Cane Gait Distance 200 Other Goals up/down 2 steps without rails SBA up/down 13 steps with L rail ascending SBA Days to Meet Goals 5 Frequency of Treatment Frequency Of Treatment Once a Day Treatment Plan Physical Therapy Treatment Plan Bed Mobility Training Transfer Training Gait Training Therapeutic Exercise Balance Retraining Discharge Planning Hot or Cold Pack Neuromuscular Re-ed Coordination Retraining Manual Therapy Recommendations To Nursing Amount of Assist Needed 1 Person Assist Discharge Recommendations PT Discharge Recommendations Acute Rehab Equipment Needed for Home Before SPC: depending on progress Discharge
--- NOTE | 2019-01-06 10:12 | CM.DANOTE ---
DCP: Case received, EMR reviewed and met with patient. Introduced self and role. DCP template completed with information currently available. Patient is a 38 year old female who admitted on 01/04 in the afternoon to the care of the hospitalist team. Payer: At this time, self pay. Was given nathan application from admissions counselor. Patient came to hospital via family vehicle due to symptoms of facial numbness and severe headaches. Patient was tested for Meningitis, which was negative. Also had some symptoms of L. Hemiparesis. Met briefly with patient, was in process of working with physical therapy. Stated that she has her 2 children at home, and lives with her boyfriend as well. Had [employer] originally, but is now not insured, and was working with admissions counselor. She had asked this case briefer if she knew who took Contreras. Asked if she had checked with [facility], and she stated she refused to go there. Encouraged her to check with other clinics in [place], as well as the [facility] clinic here in [place]. P: DCP to continue to follow closely. May be discharged home tomorrow. Kendra Quinn RN/[employer]
[2019-01-06] MEDS: SUMAtriptan 25 MG TABLET 50 MG PO (10:26)
[2019-01-06] MEDS: ASPIRIN 325 MG TABLET PO (10:26)
--- NOTE | 2019-01-06 10:45 | PM.PN.1 ---
Subjective Date Patient Seen: 01/06/19 Time Patient Seen: 10:45 Interval history: She is seen today to follow-up for headaches, left neck pain, post spinal headache, facial asymmetry. Her initial brain MRI on admission was normal, including the vascular structures. Now 3 days later she is still hemiparetic with decreased strength consistently noted on the left leg, left arm, right face. The headache has worsened since the LP yesterday, consistent with a spinal headache. She finds relief with lying flat and has not tried caffeine yet. The spinal fluid tests show normal glucose and protein along with no organisms or cells on Gram stain. She does not appear to have meningitis. 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 We have tried Imitrex and Fiorinal today without any dramatic success. She is most happy to report that the dizziness has resolved. The left head and the left neck are still quite painful, inconsistent with stroke. The CBC is normal. Exam Vital Signs (past 8 hours): - 01/06/19 05:00 01/06/19 08:30 Temperature 97.9 F 98.3 F Pulse Rate 72 68 Respiratory Rate 16 16 Blood Pressure 111/70 99/65 Pulse Oximetry 97 98 Oxygen Delivery Method Room Air Oxygen Flow Rate 0 Narrative Exam Narrative: She is alert and oriented x3, in somewhat mild distress. Heart is regular rate and rhythm without murmur Lungs clear to auscultation bilaterally Extremities no ankle edema Neurological exam. The left management trainee strength is weaker than the right. The left foot extension and flexion is weaker than the right. DTRs are suppressed on the left. The tongue deviation to the right and the facial droop on the right have improved since yesterday but are still visible. She is talking faster and interacting at normal speed today. Objective Labs Result Diagrams: 01/06/19 05:52 01/06/19 05:52 Labs: Laboratory Results - last 24 hr 01/05/19 01/05/19 01/05/19 11:46 14:46 14:46 WBC RBC Hgb Hct MCV MCH MCHC RDW Plt Count Neut % (Auto) Lymph % (Auto) [place] % (Auto) Eos % (Auto) Baso % (Auto) Neut # (Auto) Lymph # (Auto) [place] # (Auto) Eos # (Auto) Baso # (Auto) Sodium Potassium Chloride Carbon Dioxide BUN Creatinine Estimated GFR BUN/Creatinine Ratio Glucose Calcium Fluid Glucose Cancelled CSF Tube Number 4 CSF Volume 8 ml CSF Appearance Clear CSF Color Colorless CSF WBC 2.5 CSF RBC 0 CSF Mononuclear WBCs TNP CSF Polynuclear WBCs TNP CSF Glucose 47 CSF Total Protein 52 CSF C.neoform/gat PCR Cancelled CSF CMV DNA (PCR) Cancelled CSF Enterovirus (PCR) Cancelled CSF E. coli (PCR) Cancelled CSF H. influenzae (PCR) Cancelled CSF HSV I (PCR) Cancelled CSF HSV II (PCR) Cancelled CSF HHV 6 (PCR) Cancelled CSF L.monocytogenes PCR Cancelled CSF N. meningitidis PCR Cancelled CSF Parechovirus (PCR) Cancelled CSF S. agalactiae (PCR) Cancelled CSF S. pneumoniae (PCR) Cancelled CSF VZV (PCR) Cancelled HSV Culture Source Cancelled HSV Culture & Type Cancelled HSV I IgG Ab Cancelled HSV II IgG Confirm Cancelled Ref Test (Refrig) 01/05/19 01/06/19 01/06/19 14:46 05:52 05:52 WBC 5.7 RBC 3.89 L Hgb 12.2 Hct 36.0 MCV 92.6 MCH 31.3 MCHC 33.8 RDW 12.8 Plt Count 168 Neut % (Auto) 52.2 Lymph % (Auto) 39.2 [place] % (Auto) 6.5 Eos % (Auto) 1.4 L Baso % (Auto) 0.7 Neut # (Auto) 3000 Lymph # (Auto) 2200 [place] # (Auto) 400 Eos # (Auto) 100 Baso # (Auto) 0 Sodium 139 Potassium 4.3 Chloride 106 Carbon Dioxide 24 BUN 16 Creatinine 0.90 Estimated GFR > 60.0 BUN/Creatinine Ratio 17.8 Glucose 95 Calcium 8.9 Fluid Glucose CSF Tube Number CSF Volume CSF Appearance CSF Color CSF WBC CSF RBC CSF Mononuclear WBCs CSF Polynuclear WBCs CSF Glucose CSF Total Protein CSF C.neoform/gat PCR CSF CMV DNA (PCR) CSF Enterovirus (PCR) CSF E. coli (PCR) CSF H. influenzae (PCR) CSF HSV I (PCR) CSF HSV II (PCR) CSF HHV 6 (PCR) CSF L.monocytogenes PCR CSF N. meningitidis PCR CSF Parechovirus (PCR) CSF S. agalactiae (PCR) CSF S. pneumoniae (PCR) CSF VZV (PCR) HSV Culture Source HSV Culture & Type HSV I IgG Ab HSV II IgG Confirm Ref Test (Refrig) Cancelled 01/06/19 Unknown WBC RBC Hgb Hct MCV MCH MCHC RDW Plt Count Neut % (Auto) Lymph % (Auto) [place] % (Auto) Eos % (Auto) Baso % (Auto) Neut # (Auto) Lymph # (Auto) [place] # (Auto) Eos # (Auto) Baso # (Auto) Sodium Potassium Chloride Carbon Dioxide BUN Creatinine Estimated GFR BUN/Creatinine Ratio Glucose Calcium Fluid Glucose CSF Tube Number CSF Volume CSF Appearance CSF Color CSF WBC CSF RBC CSF Mononuclear WBCs CSF Polynuclear WBCs CSF Glucose CSF Total Protein CSF C.neoform/gat PCR Not detected CSF CMV DNA (PCR) Not detected CSF Enterovirus (PCR) Not detected CSF E. coli (PCR) Not detected CSF H. influenzae (PCR) Not detected CSF HSV I (PCR) Not detected CSF HSV II (PCR) Not detected CSF HHV 6 (PCR) Not detected CSF L.monocytogenes PCR Not detected CSF N. meningitidis PCR Not detected CSF Parechovirus (PCR) Not detected CSF S. agalactiae (PCR) Not detected CSF S. pneumoniae (PCR) Not detected CSF VZV (PCR) Not detected HSV Culture Source HSV Culture & Type HSV I IgG Ab HSV II IgG Confirm Ref Test (Refrig) Assessment & Plan Assessment & Plan narrative: 1. Acute left hemiparesis, present on admission, now improved with residual right-sided facial symptoms and the left arm and leg weakness. -CVA with strong family history - initial MRI is normal, we will repeat that today and plan to discuss further with Neurology given the lack of response to passage of time and other migraine typical interventions. -migrainous hemiparesis, headache started after numbness and tingling, not responding to Imitrex today, headache improving somewhat with Fiorinal, but without change in neurological symptoms. -meningitis, positive Kernig Brudzinski sign but negative workup on lumbar puncture. -now with components of post spinal headache, encouraging caffeine, hydration and improving by lying flat. Consider blood patch -both CT and MR stroke evaluations were negative for intracranial pathology or circulatory compromise. Repeat MRI today. -INR is 1.1, status post gastric bypass usually precludes the use of oral aspirin, she is requesting that we try the oral instead of rectal forms today. -echocardiogram with bubble study is normal -continue on telemetry -lumbar puncture studies of cell count, cytology, glucose, HSV, protein are normal but still pending the culture and HSV results. -at this point the symptoms are partially suggestive of Torrez's palsy but the neck pain and meningismus is atypical. -consider steroid therapy and cervical spine imaging. 2. Severe headache, acute, present on admission -generalized headache with associated visual changes, nausea and vomiting -severe neck pain to palpation, no trapezius tenderness -work up to rule out meningitis with a lumbar puncture has been negative -now with components of spinal headache, responding to caffeine/hydration and supine positioning -no response so far to Imitrex. -plan to repeat discussion with Neurology after MRI is repeated today. 3. Status post gastric bypass, chronic -BMI 30.1 -dietary consult -patient has impaired mobility but has been active without evidence of DVT -DVT prophylaxis with SCDs -Will administer ASA oral today Quality VTE Deep Vein Thrombosis/Pulmonary Embolism Present on Admission: No
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
[2019-01-06] MEDS: BUTALB/APAP/CAFFEINE 50/325/40 TABLET 1 EACH PO ×2 (12:19→17:12)
[2019-01-06] MEDS: LORazepam 1 MG TABLET PO (14:50)
--- NOTE | 2019-01-06 15:05 | OT.IP.EVAL ---
Current Diagnoses Hemiplegic migraine, not intractable, without status migrainosus (01/04/19) Transient cerebral ischemic attack, unspecified (01/04/19) Past Medical History (Last Updated 01/05/19 @ 02:27 by RADHA Hanna) delivery delivered (Acute) Diabetes (Acute) Obesity (BMI 30.0-34.9) (Acute) Peptic ulcer (Acute) Restless leg syndrome (Acute) Surgical History (Last Updated 01/05/19 @ 02:27 by RADHA Hanna) Hx of cholecystectomy (Acute) Status post gastric bypass for obesity (Acute) Occupational Therapy Inpatient Evaluation/Re-Eval M2 OT-IP Current Condition Start: 01/05/19 12:12 Freq: Status: Active Protocol: Document 01/06/19 14:29 [facility] (Rec: 01/06/19 15:05 [facility] [id number]) Occupational Therapy Current Condition Current Condition Evaluation Date 01/06/19 Treatment Diagnosis left sided weakness Diagnosis Onset Date 01/04/19 M3 OT- IP Subjective and Pain Start: 01/05/19 12:12 Freq: Status: Active Protocol: Document 01/06/19 14:29 [facility] (Rec: 01/06/19 15:05 [facility] [id number]) OT- Subjective Occupational Therapy Visit Type Type Initial Evaluation Visit Start Time 13:55 Visit Stop Time 14:15 Total Visit Minutes 20 Occupational Therapy Visit Comments Patient Comments Pt not willing to get up but willing to sit up to do cognitive assessments. Pt states her anxiety is high and feel that she should be doing better. OT Pain Assessment Pain When Pain Assessed At Rest Pain Present Pain Present Denied Pain M4 OT- IP ADL's Start: 01/05/19 12:12 Freq: Status: Active Protocol: Document 01/06/19 14:29 [facility] (Rec: 01/06/19 15:05 [facility] [id number]) OT [id number] Comments OT Self-Feeding Comments Not able to assess any ADL needs as pt very emotional and only agreeing to do cognitive assessment at this time. M6 OT- IP Functional Cognition Start: 01/05/19 12:12 Freq: Status: Active Protocol: Document 01/06/19 14:29 [facility] (Rec: 01/06/19 15:05 [facility] [id number]) Cognitive Factors Limiting Selfcare Function Cognitive Ability Level of Alertness Alert Patient Orientation Name Place Situation Attention Span Ability Capable of Focused Attention Capable of Sustained Attention Unable to Sustain Attention Ability to Follow Commands Able to Follow One Step Commands Memory Description Short Term Impaired Working Impaired Safety Awareness Underestimates Need for Assistance Cognitive Tests ACL Pt needing second demonstration for running stitch as did not realize skipped a holes, intact for whip stitch and needing second demonstration for single corodovan stitch and score of 5.0/6.0 which implies may live alone with weekly check to monitor safety and check problem solving. May need assist to organize medications and finances. M8 OT- IP Objective Assessments Start: 01/05/19 12:12 Freq: Status: Active Protocol: Document 01/06/19 14:29 [facility] (Rec: 01/06/19 15:05 [facility] [id number]) OT Strength Comments Strength Comments Pt LUE tremors a bit to raise up into shoulder flexion. Did not formally assess, pt's nurse came in to do quick assessment with pt. OT- Coordination Assessment Upper Extremity Finger to Nose Test Left UE Impaired OT Sensation Assessment Comments Summary Comments Pt states decreased feeling for LUE but able to feel pressure to LUE. M9 OT- IP Assessment and Plan Start: 01/05/19 12:12 Freq: Status: Active Protocol: Document 01/06/19 14:29 [facility] (Rec: 01/06/19 15:05 [facility] [id number]) OT Summary Assessment and Plan Potential Rehabilitation Potential Good Analytic Complexity at Evaluation Moderate Summary OT Impairments Strength Balance Functional Cognition Functional Mobility Toileting Bathing Progress Towards Goals Progressing Toward Goals Assessment Summary Not able to complete OT eval fully as pt's family came in during OT eval session and pt very tearful in addition nursing stated will have MRI done later. Goals Grooming Goal Independent Dressing Goal Independent Toileting Goal Independent Bathing Goal Standby Assistance Toilet Transfer Goal Independent Shower Transfer Goal Standby Assistance Patient/Caregiver Education Goal Caregiver Independent Assisting Patient Days to Meet Goals 5 Frequency of Treatment Frequency Of Treatment Once a Day Treatment Plan OT Treatment Plan ADL Training Functional Cognition Training Functional Mobility Patient/Family Education Discharge Planning Other Treatment Recommendations and Next shower Treatment Focus Discharge Recommendations OT Discharge Recommendations Acute Rehab
[2019-01-06] MEDS: OXYCODONE IR 10 MG TABLET PO ×2 (17:11→23:26)
[2019-01-06] MEDS: CALCIUM CARBONATE 500 MG TAB 1000 MG PO (20:32)
[2019-01-06] MEDS: GABAPENTIN 300 MG CAPSULE PO (23:27)
[2019-01-07] MEDS: BUTALB/APAP/CAFFEINE 50/325/40 TABLET 1 EACH PO ×2 (00:06→08:55)
[2019-01-07] MEDS: LORazepam 1 MG TABLET PO ×2 (01:52→10:10)
[2019-01-07 05:30] VITALS: BP 120/73; PULSE 96; RESP 16; TEMP 37; O2SAT 95
[2019-01-07 05:49] LABS: Add Manual Diff / Slide Review NO; Basophils Absolute Auto 0 /uL (0-100); Basophils Percent Auto 0.6 % (0-2); Eosinophils Absolute Auto 100 /uL (0-450); Eosinophils Percent Auto 1.4 % (2-4); Hematocrit 37.4 % (36-46); Hemoglobin 12.9 g/dL (12.0-16.0); Lymphocytes Absolute Auto 2100 /uL (1100-4500); Lymphocytes Percent Auto 37.2 % (25-40); Mean Corpuscular HGB Conc 34.4 % (30-36); Mean Corpuscular Hemoglobin 31.3 PG (26-34); Mean Corpuscular Volume 90.9 fL (80-100); Monocytes Absolute Auto 400 /uL (0-900); Monocytes Percent Auto 6.3 % (3-14); Neutrophils Absolute Auto 3100 /uL (1500-7000); Neutrophils Percent Auto 54.5 % (50-75); Platelet Count 174 X10^3/uL (150-400); Red Blood Cell Count 4.11 X10^6/uL (4.0-5.2); Red Cell Distribution Width 12.5 % (11.6-14.8); White Blood Cell Count 5.6 X10^3/uL (4.5-11.0)
[2019-01-07 06:05] LABS: BUN Creatinine Ratio 16.7 (6-22); Blood Urea Nitrogen 15 mg/dL (7-17); Calcium 9.1 mg/dL (8.4-10.2); Carbon Dioxide 27 mmol/L (22-32); Chloride 103 mmol/L (98-107); Estimated Glomerular Filt Rate > 60.0 mL/min (>60); Glucose 90 mg/dL (70-100); HEMOLYSIS < 15 (0-50); Potassium 4.1 mmol/L (3.4-5.1); Sodium 138 mmol/L (137-145)
[2019-01-07] MEDS: ASPIRIN 325 MG TABLET PO (08:55)
[2019-01-07] MEDS: OXYCODONE IR 10 MG TABLET PO (08:57)
[2019-01-07 09:00] VITALS: BP 141/75; PULSE 83; RESP 18; TEMP 36.9; O2SAT 97
--- NOTE | 2019-01-07 09:12 | P.DS_ITS ---
History of Present Illness Date Patient Seen: 01/07/19 Time Patient Seen: 09:11 Chief complaint: WHOLE FACE NUMB/SWOLLEN,LEFT SIDE NUMB,NECK STIFF Narrative: This is a 38-year-old female patient with a history of gastric bypass and restless leg syndrome that presents to the emergency department for left- sided facial numbness and weakness and left-sided upper and lower extremity tingling and weakness. Patient states she woke with her symptoms at 6:00 a.m. this morning but did wake her sleep. She distally states that she got up at floor o'clock in morning to urinate and had no symptoms. She complains a severe dull and pounding headache that developed after waking with symptoms of numbness and tingling and weakness. She has associated symptoms photosensitivity, nausea, visual blurring and the sense of ?everything moving in slow motion on ?. Patient states she has never had symptoms such as this previously. She endorses a history of a mechanical fall in November at which time she did hit her head but sustained no loss of consciousness or injuries aside from broken toe. She denies complaints of chest pain or shortness of breath and has had no changes in bowel or bladder habits. She does inform me that she started her menstrual period yesterday. She indicates that the symptoms have remained constant and I have neither progressed nor improved. She came to the ER at the prompting of friends who noted that she was not acting herself. On admission to the ER the patient has stable vital signs with a blood pressure 124/66, heart rate of 74, respiratory rate of 15 and saturating 100% on room air and was afebrile at 98.2. While in the ER the patient had laboratories done which showed a CBC within normal limits as well as a chemistry panel that was normal except for an elevated BUN creatinine ratio. Was found to be 1 EKG was completed which is not available for review at this time. She was given aspirin 325 mg, Toradol, Ativan and Reglan for her symptoms. Had a head CT done which was negative for evidence of acute intercranial pathology as well as an MRI w [facility] showed no acute intracranial abnormalities with the angio, phonate finding no stenosis or occlusions in the anterior or posterior circulation. If further found normal carotid and vertebral circulation. The patient is admitted for new onset left hemiparesis. Discharge Providers Date of admission: 01/04/19 15:12 Consults: 01/05/19 00:45 Consult to Dietitian, Adult Routine Comment: Reason For Exam: S/P gastric bypass 01/05/19 00:46 Consult to Discharge Planning Routine Comment: Consult to Occupational Therapy Evaluate & Treat Comment: left hemiparesis Physician Instructions: Evaluate and treat 01/05/19 00:47 Consult to Physical Therapy Evaluate & Treat Comment: left hemiparesis Physician Instructions: Evaluate and Treat 01/05/19 00:48 Consult to Speech Therapy Evaluate & Treat Comment: swallow eval, left facial/extremity hemiparesis Physician Instructions: Evaluate and treat Discharge provider: Quincy Roque MD Discharge Date: 01/07/19 Summary Discharge Diagnosis: 1. Acute left hemiparesis, present on admission, now improved with residual right-sided facial symptoms and the left arm and leg weakness. 2. Severe headache, acute, present on admission 3. Status post gastric bypass, chronic Hospital Course: 1. Acute left hemiparesis, present on admission, now resolved consistent with atypical migraine/migraine equivalent causation -CVA with strong family history - initial MRI and follow-up MRI yesterday are all normal. Treatment with Fioricet seems to have made it quite a difference in her migraine left hemiparesis. -migrainous hemiparesis, headache started after numbness and tingling, not responding to Imitrex but resolving with Fioricet -meningitis, positive Kernig Brudzinski sign but negative workup on lumbar puncture. -Components of post spinal headache yesterday responded to Fioricet. 2. Severe headache, acute, present on admission -generalized headache with associated visual changes, nausea and vomiting -severe neck pain to palpation, no trapezius tenderness -work up to rule out meningitis with a lumbar puncture was negative 3. Status post gastric bypass, chronic -BMI 30.1 -dietary consult -patient has impaired mobility but has been active without evidence of DVT Exam Vital Signs (past 8 hours): - 01/07/19 05:30 01/07/19 09:00 Temperature 98.6 F 98.4 F Pulse Rate 96 H 83 Respiratory Rate 16 18 Blood Pressure 120/73 141/75 H Pulse Oximetry 95 97 Oxygen Delivery Method Room Air Oxygen Flow Rate 0 Narrative Exam Narrative: She is alert and oriented x3. She is in no apparent distress. She is feeling much better today. She describes improved sensation in her left hand. Over night she became quite anxious and received Ativan. The neck ache and headache on the left side have improved. Heart is regular rate and rhythm without murmur. Lungs clear to auscultation bilaterally. Careful neurological exam demonstrates no neurological deficits. The tongue does not deviate and the right face does not droop and the left upper and lower extremity weakness has resolved. The BMP, CBC and CSF PCR are all normal. Objective Labs Result Diagrams: 01/07/19 05:31 01/07/19 05:31 Labs: Laboratory Results - last 24 hr 01/07/19 01/07/19 05:31 05:31 WBC 5.6 RBC 4.11 Hgb 12.9 Hct 37.4 MCV 90.9 MCH 31.3 MCHC 34.4 RDW 12.5 Plt Count 174 Neut % (Auto) 54.5 Lymph % (Auto) 37.2 [place] % (Auto) 6.3 Eos % (Auto) 1.4 L Baso % (Auto) 0.6 Neut # (Auto) 3100 Lymph # (Auto) 2100 [place] # (Auto) 400 Eos # (Auto) 100 Baso # (Auto) 0 Sodium 138 Potassium 4.1 Chloride 103 Carbon Dioxide 27 BUN 15 Creatinine 0.90 Estimated GFR > 60.0 BUN/Creatinine Ratio 16.7 Glucose 90 Calcium 9.1 Discharge Plan Discharge Plan Patient Disposition: Home Discharge comment: Follow up with your doctor in the next 1-2 weeks. Discharge Med Rec/Prescriptions Prescriptions: New urgfmecbvo-tchuzblzbaeds-hgir 50-325-40 mg Tablet 1 ea PO Q4HR PRN (Reason: Headache) 30 Days Qty: 30 RF: 0 gabapentin [Neurontin] 300 mg Capsule 300 mg PO BEDTIME 30 Days Qty: 30 RF: 0 oxycodone 10 mg Tablet 10 mg PO Q6HR PRN (Reason: Pain, Severe (7-10)) 5 Days Qty: 10 RF: 0 Continued multivitamin Tablet 1 tab PO DAILY RF: 0 multivitamin with minerals [Hair,Skin and Nails] Tablet 1 tab PO DAILY RF: 0 Liver Cleanse 1 dose PO DIRECTED RF: 0 Follow up/Referrals: Quincy Roque MD [Physician] - Visit Report/Discharge Packet Instructions: Acetaminophen, Butalbital, and Caffeine, Oxycodone Discharge Data Attending Provider: Faye Torrez Admit Date/Time: 01/04/19 15:12 Quality VTE Deep Vein Thrombosis/Pulmonary Embolism Present on Admission: No
[2019-01-07 09:34] VITALS: O2SAT 96
--- NOTE | 2019-01-07 09:42 | PC.NURSE ---
pt quite anxious this am but weakness to left much lessened pt hopeful to go home today- denies pain
--- NOTE | 2019-01-07 11:19 | PC.NURSE ---
discharged to home at this time- pt refused hospital escort - family present
--- NOTE | 2019-01-07 11:30 | PT.IPTN ---
Current Diagnoses Hemiplegic migraine, not intractable, without status migrainosus (01/04/19) Transient cerebral ischemic attack, unspecified (01/04/19) Physical Therapy Treatment Note M2 PT-IP Current Condition Start: 01/05/19 11:57 Freq: NEEDED Status: Discharge Protocol: Document 01/06/19 09:48 [facility] (Rec: 01/06/19 11:50 [facility] [id number]) Physical Therapy Current Condition Current Condition Evaluation Date 01/06/19 Treatment Diagnosis L sided weakness; difficulty in walking Onset Date 01/04/19 M3 PT-IP Subjective Start: 01/05/19 11:57 Freq: NEEDED Status: Discharge Protocol: Document 01/07/19 10:06 [facility] (Rec: 01/07/19 11:30 [facility] [id number]) Subjective Physical Therapy Visit Type Type Treatment Note Visit Start Time 10:06 Visit Stop Time 10:14 Number of BRICK GRADER Visits 1 Physical Therapy Visit Comments Patient Comments Pt waiting ride for d/c but was agreeable to trial stairs. M4 PT-IP Mobility and Gait Start: 01/05/19 11:57 Freq: NEEDED Status: Discharge Protocol: Document 01/07/19 10:06 [facility] (Rec: 01/07/19 11:30 [facility] [id number]) PT-Bed Mobility Assessment Supine to Sit Supine to Sit Independent Sit to Supine Sit to Supine Independent PT-Transfer Assessment Sit to and From Stand Sit to and from Stand Independent Equipment Transfer Assistive Device None Gait Belt Orthotic/Prosthetic Devices or Brace: No Transfers Transfer Destination Bed Transfer Ability Level of Assist Independent Comments Mobility Comments Pt with steady gait w/o use of cane, mann or furniture. Gait Assessment Gait Gait Assistance Required: Standby Assistance Distance (Feet) 40 Able to Maintain Weight Bearing Status Yes During Gait Assistive Devices Assistive Device None Gait Belt Orthotic/Prosthetic Devices or Brace: No Gait Deviations General Gait Pattern Decreased Stride Length Decreased Feet Clearance Factors Limiting Gait Function Factors Limiting Gait Function Decreased Activity Tolerance Decreased Strength Comments Gait Comments Pt ambulated ~20ft to stairs SBA and no AD. Pt with steady gait. Stair Climbing Assessment Evaluation Level of Assist On Stairs Standby Assistance Devices Stair Climbing Assistive Devices Left Railing Technique/Endurance Stair Climbing Direction Ascend and Descend Stair Climbing Technique Step to Step Number of Steps Climbed 3 Query Text: Stair Climbing Set # Repetitions (reps) 4 Comments Stair Climbing Comments Pt able to safely climb stairs SBA. PT-Balance Assessment Sitting Balance and Reactions Static Sitting Balance Ability Good Dynamic Sitting Balance Ability Good M5 PT-IP Objective Assessments Start: 01/05/19 11:57 Freq: NEEDED Status: Discharge Protocol: Document 01/06/19 09:48 [facility] (Rec: 01/06/19 11:50 [facility] [id number]) Orientation Orientation/Cognition Level of Alertness Alert Orientation Name Age Birthday Month Date Year Day of Week Place Situation Safety Awareness Understands Safety Issues Gross Range of Motion Lower Extremity ROM Assessment Within Functional Limits Strength Lower Extremity Strength Assessment Left Impaired Hip 3/5 Knee 3-/5 Sensation Assessment Sensation Gross Sensation Left LE Impaired Light Touch Impaired Sensation Description Numbness M6 PT-IP Treatment Start: 01/05/19 11:57 Freq: NEEDED Status: Discharge Protocol: Document 01/06/19 09:48 [facility] (Rec: 01/06/19 11:50 [facility] [id number]) Physical Therapy Treatment Exercises Exercises Quad Sets Seated Knee Flexion/Extension Education Education Provided Safety M7 PT-IP Assessment and Plan Start: 01/05/19 11:57 Freq: NEEDED Status: Discharge Protocol: Document 01/07/19 10:06 [facility] (Rec: 01/07/19 11:30 [facility] [id number]) PT Summary Assessment and Plan Summary Assessment Summary Pt improved with balance during gait and was able to ambulate 40ft SBA w/o AD. Pt able to successfully climb stairs SBA. Goals Transfer Goal Independent Cane Gait Goal Independent Cane Gait Distance 200 Other Goals up/down 2 steps without rails SBA up/down 13 steps with L rail ascending SBA Days to Meet Goals 5 Frequency of Treatment Frequency Of Treatment Once a Day Treatment Plan Physical Therapy Treatment Plan Bed Mobility Training Transfer Training Gait Training Therapeutic Exercise Balance Retraining Discharge Planning Hot or Cold Pack Neuromuscular Re-ed Coordination Retraining Manual Therapy Recommendations To Nursing Amount of Assist Needed 1 Person Assist Discharge Recommendations PT Discharge Recommendations Home with 24/7 Assist Equipment Needed for Home Before SPC: depending on progress Discharge
== END 2019-01-07 11:19 | disposition home or self-care (01) | DRG 103 ==
LOC: ED 14:07 → AC 15:52
PROVIDERS: Family Medicine; Admitting Provider Nurse Practitioner Adult Health; Emergency Provider Emergency Medicine; Visit Provider Internal Medicine
DX: G43.409 Hemiplegic migraine, not intractable, without status migrainosus (principal); E66.9 Obesity, unspecified; Z68.31 Body mass index [BMI] 31.0-31.9, adult; R29.707 NIHSS score 7; G25.81 Restless legs syndrome; Z98.84 Bariatric surgery status
CPT/HCPCS: 36415; 36591; 62270; 70450; 70551; 70553; 76000; 80048; 80061; 80305; 81003; 81015; 82945; 82962; 83540; 83550; 84145; 84157; 85025; 85610; 85730; 87070; 87205; 87798; 89051; 92522; 93005; 93041; 93306; 96361; 96374; 96375; 97116; 97162; 97165; 99285; J1200; J1885; J2060; J2765

== ENCOUNTER → 2021-07-10 15:55 | Outpatient (CLI) | payer OTHER, MEDICAID, SELFPAY ==
--- NOTE | 2021-07-10 15:59 | DI.RAD.S_ITS ---
PROCEDURE: XR WRIST LT MIN 3V INDICATIONS: PAIN TECHNIQUE: 4 views of the wrist were acquired. COMPARISON: None. FINDINGS: Bones: No fractures or dislocations. No suspicious bony lesions. Scaphoid view: Normal. Soft tissues: No suspicious soft tissue calcifications. IMPRESSION: Source of pain is not seen. Dictated by: Jorge Kolb M.D. on 07/10/2021 at 17:09 Approved by: Jorge Kolb M.D. on 07/10/2021 at 17:10
--- NOTE | 2021-07-10 16:00 | DI.RAD.S_ITS ---
PROCEDURE: XR ELBOW LT MIN 3V INDICATIONS: PAIN TECHNIQUE: 3 views of the elbow were acquired. COMPARISON: None. FINDINGS: Bones: No fractures or dislocations. No suspicious bony lesions. Soft tissues: No elbow joint effusion. No suspicious soft tissue calcifications. IMPRESSION: Unremarkable radiographic examination of elbow joint. Dictated by: Sergey Castillo M.D. on 07/10/2021 at 16:39 Approved by: Sergey Castillo M.D. on 07/10/2021 at 16:45
== END ==
PROVIDERS: Referring Provider Nurse Practitioner Family; Visit Provider Nurse Practitioner Family
DX: M25.532 Pain in left wrist (principal); M25.522 Pain in left elbow
CPT/HCPCS: 73080; 73110

== ENCOUNTER 2022-08-12 13:04 | Emergency (ER) | payer OTHER, MEDICAID, SELFPAY ==
[2022-08-12 13:13] VITALS: BP 142/82; PULSE 106; RESP 15; TEMP 36.9; O2SAT 100; BMI 32.8
--- NOTE | 2022-08-12 13:21 | DI.CT.S_ITS ---
PROCEDURE: CT ANGIO HEAD AND NECK INDICATIONS: Slurred speech/altered mental status TECHNIQUE: Pre-contrast 4.5 mm thick sections acquired from the foramen magnum to the vertex. After the administration of intravenous contrast, 1 mm thick sections acquired from the aortic arch through the [place] of [place]. Post-contrast 4.5 mm thick sections then re-acquired from the foramen magnum to the vertex. 3-dimensional yopmitl-kmealltsi-rkknoxhgzp (MIP) and/or volume rendering reformats were acquired of the central intracranial vasculature and neck separately. For radiation dose reduction, the following was used: automated exposure control, adjustment of mA and/or kV according to patient size. COMPARISON: [facility], MR, MR STROKE, 01/04/2019, 11:00. [facility], CT, BRAIN W/O CONTRAST, 12/18/2011, 17:18. [facility], CT, BRAIN W/O CONTRAST, 11/14/2012, 20:59. [facility], CT, CT HEAD/BRAIN WO CON, 01/04/2019, 9:41. [facility], MR, MR HEAD/BRAIN WO CON, 01/06/2019, 15:17. FINDINGS: Image quality: Mild streak artifact can be seen through the skull base. BRAIN: CSF spaces: Ventricles are normal in size and shape. Basal cisterns are patent. No extra-axial fluid collections. Brain: No midline shift. No intracranial bleeds or masses. Baez-white matter interface appears intact. Skull and face: Calvarium and facial bones appear intact, without suspicious lesions. Orbits appear normal. Incidental note is made of hyperostosis frontalis. This is not considered to be pathologic in a woman of this age. In this patient with a given history right facial droop, scrutiny is given to the course of the right facial nerve, including within the right parotid gland. No jayda masses or abnormal enhancement can be seen, to the limits of CT. Sinuses: Sinuses and mastoids are clear. HEAD CT ANGIOGRAPHY: Anterior circulation: Intracranial internal carotid arteries are normal in size and flow. The flow within the paired anterior cerebral arteries is normal and symmetric. The flow within the middle cerebral arteries is normal and symmetric. The anterior communicating artery is seen. No aneurysms are seen. Posterior circulation: Visualized portions of the vertebral arteries demonstrate normal caliber, and join to form a normal appearing basilar artery. There is a prominent right posterior communicating artery seen, with an accompanying diminutive right P1 segment. This is attributed to a type origin of the right posterior cerebral artery, which is considered to be a normal developmental variant of typically no clinical consequence. Flow within the posterior cerebral arteries is normal and symmetric. No aneurysms are seen. NECK CT ANGIOGRAPHY: Carotid system: The great vessels demonstrate a conventional anatomy as they arise from the aortic arch. The origins of the common carotid arteries appear patent. The common carotid arteries demonstrate normal caliber and courses. The bifurcation regions are both widely patent. The internal carotid arteries demonstrate normal calibers and courses. Posterior circulation: The origins of the vertebral arteries both appear widely patent. The more superior extracranial portions of both vertebral arteries also demonstrate normal courses and calibers. They join to form a normal appearing basilar artery. Soft tissues: Visualized neck soft tissues demonstrate no suspicious abnormalities. Bones: No suspicious bony lesions. Visualized cervical spine appears normally aligned. IMPRESSION: No acute intracranial hemorrhage is seen. No acute intracranial process is seen. No significant intracranial arterial abnormality is seen. Within the arteries of the neck, no hemodynamically significant stenosis can be seen. No findings neck artery dissection can be seen. Any quantitative measurements of stenosis were performed using NASCET criteria. Dictated by: Nathan Ortez M.D. on 08/12/2022 at 13:09 Approved by: Nathan Ortez M.D. on 08/12/2022 at 13:13
[2022-08-12 13:40] LABS: Add Manual Diff / Slide Review NO; Basophils Absolute Auto 0 /uL (0-100); Basophils Percent Auto 0.4 % (0-2); Eosinophils Absolute Auto 100 /uL (0-450); Eosinophils Percent Auto 1.5 % (2-4); Hematocrit 31.2 % (36-46); Hemoglobin 9.9 g/dL (12.0-16.0); Lymphocytes Absolute Auto 1600 /uL (1100-4500); Lymphocytes Percent Auto 25.8 % (25-40); Mean Corpuscular HGB Conc 31.7 % (30-36); Mean Corpuscular Hemoglobin 23.4 PG (26-34); Mean Corpuscular Volume 73.9 fL (80-100); Monocytes Absolute Auto 300 /uL (0-900); Monocytes Percent Auto 4.8 % (3-14); Neutrophils Absolute Auto 4300 /uL (1500-7000); Neutrophils Percent Auto 67.5 % (50-75); Platelet Count 223 X10^3/uL (150-400); Red Blood Cell Count 4.22 X10^6/uL (4.0-5.2); Red Cell Distribution Width 18.2 % (11.6-14.8); White Blood Cell Count 6.4 X10^3/uL (4.5-11.0)
[2022-08-12 13:52] LABS: Alanine Aminotransferase 16 IU/L (<35); Albumin Globulin Ratio 1.1 (1.0-2.8); Alkaline Phosphatase 94 U/L (38-126); Aspartate Aminotransferase 24 IU/L (14-36); Bilirubin Total 0.3 mg/dL (0.2-1.3); Blood Urea Nitrogen 10 mg/dL (7-17); Calcium 8.7 mg/dL (8.4-10.2); Carbon Dioxide 24 mmol/L (22-32); Chloride 104 mmol/L (98-107); Creatine Kinase 132 U/L (30-135); Estimated Glomerular Filt Rate > 60 mL/min (>60); Globulin 3.5 g/dL (1.7-4.1); Glucose 189 mg/dL (70-100); HEMOLYSIS < 15 (0-50); Potassium 3.7 mmol/L (3.4-5.1); Sodium 139 mmol/L (137-145); Total Protein 7.5 g/dL (6.3-8.2)
[2022-08-12 14:00] LABS: Pregnancy Test Serum,Qual Negative (Negative)
[2022-08-12 14:03] LABS: Troponin I < 0.012 ng/mL (0.01-0.034)
[2022-08-12 14:07] LABS: CKMB % Relative Index 2.6 % (1.5-5.0); Creatine Kinase MB 3.49 ng/mL (<2.37)
--- NOTE | 2022-08-12 14:17 | DI.CT.S_ITS ---
PROCEDURE: CT PEL WO CON INDICATIONS: Fall/left-sided pain TECHNIQUE: Noncontrast 3 mm axial sections acquired through the bony pelvis, with coronal and sagittal reformatting. COMPARISON: None. FINDINGS: Image quality: Excellent. Bones: No fracture or dislocation. No focal osseous lesions. Soft tissues: Visualized bowel in the pelvis is normal. No hematoma, free air, free fluid, or evidence of hemorrhage. IMPRESSION: No fracture of the pelvis. Dictated by: Niranjan Rose M.D. on 08/12/2022 at 15:30 Approved by: Niranjan Rose M.D. on 08/12/2022 at 15:33
--- NOTE | 2022-08-12 14:17 | DI.RAD.S_ITS ---
PROCEDURE: XR SHOULDER LT MIN 2V INDICATIONS: pain/injury TECHNIQUE: 3 views of the shoulder were acquired. COMPARISON: None. FINDINGS: Bones: No fractures or dislocations. No suspicious bony lesions. Visualized ribs appear intact. Soft tissues: No suspicious soft tissue calcifications. IMPRESSION: Normal left shoulder Dictated by: Niranjan Rose M.D. on 08/12/2022 at 15:30 Approved by: Niranjan Rsoe M.D. on 08/12/2022 at 15:30
--- NOTE | 2022-08-12 14:18 | ED.NEUROSD ---
HPI - Neuro Symptoms/Deficit General Chief Complaint: Neuro Symptoms/Deficit Stated Complaint: PT. fell/confused/hx of stroke/lt. side drooping Time Seen by Provider: 08/12/22 13:20 Source: patient Mode of arrival: Ambulatory History of Present Illness HPI Narrative: Patient here with a friend. Brought here by her friend. Complains slurred speech confusion and left-sided weakness. Last well-known 11:00 p.m. last night. Over 12 hours ago. Awoke at 10:00 a.m. this morning with these complaints. Patient states last night she felt very dizzy and she passed out in the bathroom. She states she hurt her left shoulder and left hip during the fall in the bathroom. Did not hit her head. Her daughter heard her fall down and helped her down to her bedroom to lay down and she went to sleep. At 11:00 p.m.. Patient denies any recent illness. No nausea vomiting diarrhea no black or bloody stools. No cough cold or congestion. Patient states has had a stroke in the past/TIA with the similar symptoms slurred speech and slow speech. On Anticoagulants: No Related Data Home Medications Medication Instructions Recorded Confirmed Liver Cleanse 1 dose PO DIRECTED 01/04/19 01/04/19 multivitamin 1 tab PO DAILY 01/04/19 01/04/19 multivitamin with minerals 1 tab PO DAILY 01/04/19 01/04/19 (Hair,Skin and Nails tablet) Allergies Allergy/AdvReac Type Severity Reaction Status Date / Time ceftriaxone [CEFTRIAXONE] Allergy Intermediate Verified 08/12/22 13:13 ketorolac [KETOROLAC] Allergy Intermediate Verified 08/12/22 13:13 acetaminophen [From VICODIN] Allergy Unknown Verified 08/12/22 13:13 enoxaparin [From LOVENOX] Allergy Unknown Verified 08/12/22 13:13 hydrocodone [From VICODIN] Allergy Unknown Verified 08/12/22 13:13 prednisone [PREDNISONE] Allergy Unknown Verified 08/12/22 13:13 MEDICATION FOR BLOOD CLOTS Allergy Intermediate Uncoded 01/04/19 09:44 Review of Systems Review of Systems Narrative: GENERAL: Denies chills, fatigue, malaise, fever, sweats. HEENT: Denies sinus pain, ear pain, sore throat RESPIRATORY: Denies dyspnea, cough CARDIOVASCULAR: Denies chest pain, palpitations GASTROINTESTINAL: Denies nausea, vomiting, abdominal pain : Denies dysuria, frequency, hematuria MUSCULOSKELETAL: Positive for muscle or bony pain SKIN: Denies rash, skin lesions NEUROLOGIC: Positive for slurred speech/confusion/weakness, numbness ROS Unobtainable: All systems reviewed & are unremarkable except as noted in HPI and below Hematologic/Lymphatic On Anticoagulants: No Patient History Medical History delivery delivered Diabetes Obesity (BMI 30.0-34.9) Peptic ulcer Restless leg syndrome Surgical History Hx of cholecystectomy Status post gastric bypass for obesity Social History household members: children Smoking Status: Never smoker Smoking Status: Never smoker alcohol intake frequency: holidays/special occasions only Substance Use Type: does not use Exam Narrative Exam Narrative: GENERAL: in no distress, not toxic not dyspneic HEAD: Normocephalic. Nontender scalp and face. EYES: Pupils equal round No scleral icterus. ENT: Mucous membranes moist. NECK: Trachea midline. No midline tenderness or step-off. CARDIOVASCULAR: Regular rate and rhythm without murmurs RESPIRATORY: Clear to auscultation. Breath sounds equal bilaterally. No wheezes, rales, or rhonchi. GASTROINTESTINAL: Abdomen soft, non-tender EXTREMITIES: No gross deformities. Mild tenderness to the left shoulder but no gross deformity. Limited range of motion due to pain as well as weakness. Able to flex fully at the elbow but has pain at the shoulder. Able to flex and extend at the wrist. Strong radial pulse. Examination of the left lower extremity. Nontender knee and ankle. However attempts to flex the left hip causes pain. BACK: No flank tenderness. NEURO: AOx4. Slightly slurred speech, no facial droop, light touch left face feels different from the right. Left sour bleaching pleater slightly weaker than right. Light touch intact to left hand and foot. SKIN: Warm and dry PSYCH: Not anxious, is cooperative Initial Vital Signs Initial Vital Signs: Vital Signs Temperature 98.5 F 08/12/22 13:13 Pulse Rate 106 H 08/12/22 13:13 Respiratory Rate 15 08/12/22 13:13 Blood Pressure 142/82 H 08/12/22 13:13 Pulse Oximetry 100 08/12/22 13:13 Oxygen Delivery Method 08/12/22 13:13 Scores NIH Stroke Scale Level of Conciousness: Alert, keenly responsive Ask month/age: Answers both questions correctly. Open/close eyes, close hand: Performs both tasks correctly Best gaze horizontal: Normal Visual chanel: No visual loss Facial palsy: Normal symetrical movement Left arm drift: Some effort against gravity, cannot maintain, drifts down to bed Right arm drift: No drift for full 10 sec Left leg drift: Some effort against gravity, cannot maintain, drifts down to bed Right leg drift: No drift for full 5 sec Limb ataxia: Absent Sensory on face/arms/legs: Mild to moderate sensory loss, can tell touch Best language: No aphasia, normal Dysarthria: Mild to mod,some slurring Extinction or inattention: No abnormality Total NIH Stroke scale score: 6 Course Course Decision to Admit Date: 08/12/22 Decision to Admit time: 16:22 Orders Ordered: ED Orders 08/12/22 13:21 CT angio head and neck Stat EKG-12 Lead Stat 08/12/22 13:30 Complete Blood Count AUTO DIFF Stat Comprehensive Metabolic Panel Stat Test Serum,Qual Stat Troponin & CK Cardiac Panel Stat 08/12/22 14:17 CT pelvis wo con Stat XR shoulder LT min 2V Stat Discontinued Medications Sodium Chloride (Normal Saline 0.9%) 500 mls @ 1,000 mls/hr IV BOLUS ONE Stop: 08/12/22 13:51 Last Admin: 08/12/22 16:38 Dose: Not Given Documented By: CATERINA Reevaluation(s) Reevaluation #1: I have reviewed results with patient. At this time patient states she does not want to be admitted hospital for continued evaluation and testing for TIA and her neuro complaints. Implored with her to stay, she would not. She understands risk of heart attack stroke permanent injury worsening condition loss of limb or organ. She is awake alert oriented x4. She states she feels like a lot of this is her anxiety. She has been weaning off of her clonazepam, she did make corrections to her assigned primary care with her insurance and she will be able to get follow-up. Informed her she is welcome back at any time, she is welcome back if she changes her mind to return Time: 16:24 Vital Signs Vital signs: Vital Signs - 8 hr 08/12/22 13:13 08/12/22 16:30 Temperature 98.5 F Pulse Rate 106 H 80 Respiratory Rate 15 18 Blood Pressure 142/82 H 140/60 Pulse Oximetry 100 98 Oxygen Delivery Method Room Air MDM - Neuro Symptoms/Deficit Differential Diagnosis Differential diagnosis: Likely cerebrovascular accident (Contusion/fracture), transient cerebral ischemia and other (Anxiety) Lab Data Result diagrams: 08/12/22 13:30 08/12/22 13:30 Labs: Lab Results 08/12/22 08/12/22 08/12/22 Range/Units 13:30 13:30 13:30 WBC 6.4 (4.5-11.0) X10^3/uL RBC 4.22 (4.0-5.2) X10^6/uL Hgb 9.9 L (12.0-16.0) g/dL Hct 31.2 L (36-46) % MCV 73.9 L (80-100) fL MCH 23.4 L (26-34) PG MCHC 31.7 (30-36) % RDW 18.2 H (11.6-14.8) % Plt Count 223 (150-400) X10^3/uL Neut % (Auto) 67.5 (50-75) % Lymph % (Auto) 25.8 (25-40) % [place] % (Auto) 4.8 (3-14) % Eos % (Auto) 1.5 L (2-4) % Baso % (Auto) 0.4 (0-2) % Neut # (Auto) 4300 (5700-7357) /uL Lymph # (Auto) 1600 (0902-6954) /uL [place] # (Auto) 300 (0-900) /uL Eos # (Auto) 100 (0-450) /uL Baso # (Auto) 0 (0-100) /uL Sodium 139 (137-145) mmol/L Potassium 3.7 (3.4-5.1) mmol/L Chloride 104 (98-107) mmol/L Carbon Dioxide 24 (22-32) mmol/L BUN 10 (7-17) mg/dL Creatinine 0.91 (0.52-1.04) mg/dL Estimated GFR > 60 (>60) mL/min BUN/Creatinine Ratio 11.0 (6-22) Glucose 189 H (70-100) mg/dL Calcium 8.7 (8.4-10.2) mg/dL Total Bilirubin 0.3 (0.2-1.3) mg/dL AST 24 (14-36) IU/L ALT 16 (<35) IU/L Alkaline Phosphatase 94 (38-126) U/L Total Creatine Kinase 132 (30-135) U/L CK-MB (CK-2) 3.49 H (<2.37) ng/mL CK-MB (CK-2) Rel Index 2.6 (1.5-5.0) % Troponin I < 0.012 (0.01-0.034) ng/mL Total Protein 7.5 (6.3-8.2) g/dL Albumin 4.0 (3.5-5.0) g/dL Globulin 3.5 (1.7-4.1) g/dL Albumin/Globulin Ratio 1.1 (1.0-2.8) Serum , Qual Negative (Negative) Imaging Data CTA - brain/neck: Radiologist's Impression: [address] [address] [address] Scan Report Signed Patient: Tabby Edmondson MR#: [id number] : 1980 Acct:[id number] Age/Sex: 42 / F Date of Service: 08/12/22 Loc: Accession Number: [id number] ?? Procedure: CT angio head and neck Ordering Provider: Joseph Chapman MD PROCEDURE:? CT ANGIO HEAD AND NECK ? INDICATIONS:? Slurred speech/altered mental status ? TECHNIQUE:? Pre-contrast 4.5 mm thick sections acquired from the foramen magnum to the vertex.? After the administration of intravenous contrast, 1 mm thick sections acquired from the aortic arch through the [place] of [place].? Post-contrast 4.5 mm thick sections then re-acquired from the foramen magnum to the vertex.? 3-dimensional lhzfmbx-hfxtgqvxu-zqumcexluh (MIP) and/or volume rendering reformats were acquired of the central intracranial vasculature and neck separately. For radiation dose reduction, the following was used:? automated exposure control, adjustment of mA and/or kV according to patient size.? ? COMPARISON:? [facility], MR, MR STROKE, 01/04/2019, 11:00.? [facility], CT, BRAIN W/O CONTRAST, 12/18/2011, 17:18.? [facility], CT, BRAIN W/O CONTRAST, 11/14/2012, 20:59.? [facility], CT, CT HEAD/BRAIN WO CON, 01/04/2019, 9:41. ?[facility], MR, MR HEAD/BRAIN WO CON, 01/06/2019, 15:17. ? FINDINGS:? Image quality:? Mild streak artifact can be seen through the skull base. ? BRAIN:? CSF spaces:? Ventricles are normal in size and shape.? Basal cisterns are patent.? No extra-axial fluid collections.? ? Brain:? No midline shift.? No intracranial bleeds or masses.? Baez-white matter interface appears intact.? ? Skull and face:? Calvarium and facial bones appear intact, without suspicious lesions.? Orbits appear normal.? Incidental note is made of hyperostosis frontalis. This is not considered to be pathologic in a woman of this age.? In this patient with a given history right facial droop, scrutiny is given to the course of the right facial nerve, including within the right parotid gland.? No jayda masses or abnormal enhancement can be seen, to the limits of CT. ? Sinuses:? Sinuses and mastoids are clear.? ? HEAD CT ANGIOGRAPHY:? Anterior circulation:? Intracranial internal carotid arteries are normal in size and flow.? The flow within the paired anterior cerebral arteries is normal and symmetric.? The flow within the middle cerebral arteries is normal and symmetric.? The anterior communicating artery is seen.? No aneurysms are seen.? ? Posterior circulation:? Visualized portions of the vertebral arteries demonstrate normal caliber, and join to form a normal appearing basilar artery. There is a prominent right posterior communicating artery seen, with an accompanying diminutive right P1 segment. This is attributed to a type origin of the right posterior cerebral artery, which is considered to be a normal developmental variant of typically no clinical consequence.? Flow within the posterior cerebral arteries is normal and symmetric.? No aneurysms are seen.? ? NECK CT ANGIOGRAPHY:? Carotid system:? The great vessels demonstrate a conventional anatomy as they arise from the aortic arch.? The origins of the common carotid arteries appear patent.? The common carotid arteries demonstrate normal caliber and courses.? The bifurcation regions are both widely patent.? The internal carotid arteries demonstrate normal calibers and courses.? ? Posterior circulation:? The origins of the vertebral arteries both appear widely patent.? The more superior extracranial portions of both vertebral arteries also demonstrate normal courses and calibers.? They join to form a normal appearing basilar artery.? ? Soft tissues:? Visualized neck soft tissues demonstrate no suspicious abnormalities.? ? Bones:? No suspicious bony lesions.? Visualized cervical spine appears normally aligned.? IMPRESSION:? No acute intracranial hemorrhage is seen.? ? No acute intracranial process is seen.? ? No significant intracranial arterial abnormality is seen.? ? Within the arteries of the neck, no hemodynamically significant stenosis can be seen. ? No findings neck artery dissection can be seen. ? Any quantitative measurements of stenosis were performed using NASCET criteria.? ? ? Dictated by: Nathan Ortez M.D. on 08/12/2022 at 13:09 ? ? Approved by: Nathan Ortez M.D. on 08/12/2022 at 13:13 ? Extremity x-ray #1: Radiologist's Impression: [place] [address] CT Scan Report Signed Patient: Tabby Edmondson MR#: [id number] : 1980 Acct:[id number] Age/Sex: 42 / F Date of Service: 08/12/22 Loc: ED Accession Number: [id number] ?? Procedure: CT pelvis wo con Ordering Provider: Joseph Chapman MD PROCEDURE:? CT PEL WO CON ? INDICATIONS:? Fall/left-sided pain ? TECHNIQUE:? Noncontrast 3 mm axial sections acquired through the bony pelvis, with coronal and sagittal reformatting.? ? COMPARISON:? None. ? FINDINGS:? Image quality:? Excellent.? ? Bones:? No fracture or dislocation.? No focal osseous lesions. ? Soft tissues:? Visualized bowel in the pelvis is normal.? No hematoma, free air, free fluid, or evidence of hemorrhage. ? ? IMPRESSION:? No fracture of the pelvis. ? Dictated by: Niranjan Rose M.D. on 08/12/2022 at 15:30 ? ? Approved by: Niranjan Rose M.D. on 08/12/2022 at 15:33 ? Extremity x-ray #2: Radiologist's Impression: [address] [address] XRay Report Signed Patient: Tabby Edmondson MR#: [id number] : 1980 Acct:[id number] Age/Sex: 42 / F Date of Service: 08/12/22 Loc: ED Accession Number: [id number] ?? Procedure: XR shoulder LT min 2V Ordering Provider: Joseph Chapman MD PROCEDURE:? XR SHOULDER LT MIN 2V ? INDICATIONS:? pain/injury ? TECHNIQUE:? 3 views of the shoulder were acquired.? ? COMPARISON:? None. ? FINDINGS:? ? Bones:? No fractures or dislocations.? No suspicious bony lesions.? Visualized ribs appear intact.? ? Soft tissues:? No suspicious soft tissue calcifications.? ? IMPRESSION:? Normal left shoulder ? ? Dictated by: Niranjan Rose M.D. on 08/12/2022 at 15:30 ? ? Approved by: Niranjan Rose M.D. on 08/12/2022 at 15:30 ? ECG Data Interpretation: Normal sinus rhythm rate [address] elevation or depression MDM Narrative Medical decision making narrative: Patient has decided to leave against medical advice. Implored with patient to be admitted for further evaluation and treatment for her symptoms. Risk of leaving against medical advice reviewed with her. Includes but not limited to heart attack strokes loss of limb or organ or permanent injury or worsening conditions. She is awake alert oriented x4 at time of making this decision. Discharge Plan Departure Patient Disposition: Left Against Medical Advice Clinical Impression: Left against medical advice, Brain TIA, Contusion of left shoulder, Contusion of hip, left Activity Restrictions/Additional Instructions: Return immediately if you change your mind to be admitted for further evaluation and testing. Prescriptions: No Action multivitamin Tablet 1 tab PO DAILY multivitamin with minerals [Hair,Skin and Nails] Tablet 1 tab PO DAILY Liver Cleanse 1 dose PO DIRECTED Referrals: Marcus Fisher MD [Primary Care Provider] - Stand Alone Forms: Against Medical Advice
[2022-08-12 16:30] VITALS: BP 140/60; PULSE 80; RESP 18; O2SAT 98
--- NOTE | 2022-08-12 17:09 | PC.NURSE ---
1500 pt states she ran out of [employer] on tuesday (after taking for 14 yrs), she hasn't been to see her new provider yet. she states she fell yesterday.
== END 2022-08-12 16:38 | disposition left against medical advice (07) ==
PROVIDERS: Emergency Provider Emergency Medicine; PCP Family Medicine
DX: G45.9 Transient cerebral ischemic attack, unspecified (principal); S40.012A Contusion of left shoulder, initial encounter; S70.02XA Contusion of left hip, initial encounter; R07.9 Chest pain, unspecified; W19.XXXA Unspecified fall, initial encounter
CPT/HCPCS: 36415; 70496; 70498; 72192; 73030; 80053; 82550; 82553; 84484; 84703; 85025; 93005; 93010; 99284; Q9967

== ENCOUNTER 2024-06-12 21:30 | Observation (INO) | payer OTHER, MEDICAID, SELFPAY ==
[2024-06-12] VITALS (8 sets, daily range): BP systolic 128–175; BP diastolic 69–97; PULSE 68–79; RESP 18–24; TEMP 37.1; O2SAT 93–100; BMI 34.4
--- NOTE | 2024-06-12 21:47 | DI.CT.S_ITS ---
PROCEDURE: CT STROKE INDICATIONS: Positive BE-FAST, Stroke symptoms TECHNIQUE: Noncontrast 4.5 mm thick angled axial sections acquired from the foramen magnum to the vertex, with coronal reformats. For radiation dose reduction, the following was used: automated exposure control, adjustment of mA and/or kV according to patient size. COMPARISON: None. FINDINGS: Image quality: Diagnostic. CSF spaces: Basal cisterns are patent. No extra-axial fluid collections. Ventricles are normal in size and shape. Brain: No midline shift. No intracranial masses or hemorrhage. Baez-white matter interface is normal. Skull and face: Calvarium and visualized facial bones are intact, without suspicious lesions. Sinuses: Visualized sinuses and mastoids are clear. IMPRESSION: No acute intracranial pathology. Findings were discussed with Dr. Bridges at 2200hrs. This study fulfills neurological imaging criteria for inclusion or exclusion of acute stroke therapies based on available published neurological imaging guidelines. Dictated by: Quinten Cordova M.D. on 06/12/2024 at 22:01 Approved by: Quinten Cordova M.D. on 06/12/2024 at 22:05
--- NOTE | 2024-06-12 21:47 | DI.RAD.S_ITS ---
PROCEDURE: XR CHEST 1V INDICATIONS: Possible stroke TECHNIQUE: One view of the chest was acquired. COMPARISON: None. FINDINGS: Surgical changes and devices: None. Lungs and pleura: Diffuse interstitial prominence of the left hemithorax with patchy opacities of the left perihilar region and left lung base. No pneumothorax or pleural effusion. Mediastinum: Mediastinal contours appear normal. Heart size is normal. Bones and chest wall: No suspicious bony lesions. Overlying soft tissues appear unremarkable. IMPRESSION: Diffuse interstitial prominence involving the left hemithorax with patchy opacities of the left perihilar and left lung base. Findings may represent an infectious or inflammatory process. Asymmetric pulmonary edema may have a similar appearance if clinically appropriate. Recommend follow up chest radiograph 4-6 weeks after treatment to document resolution of findings and/or return to baseline examination. Dictated by: Quinten Cordova M.D. on 06/13/2024 at 0:44 Approved by: Quinten Cordova M.D. on 06/13/2024 at 0:50
--- NOTE | 2024-06-12 21:51 | DI.CT.S_ITS ---
PROCEDURE: CT ANGIO HEAD AND NECK INDICATIONS: stroke symptoms, onset 2109 TECHNIQUE: After the administration of intravenous contrast, 1 mm thick sections acquired from the aortic arch through the [place] of Carey. 3-dimensional kurtper-skmhpdpkt-vgjgrmxmac (MIP) and/or volume rendering reformats were acquired of the central intracranial vasculature and neck separately. For radiation dose reduction, the following was used: automated exposure control, adjustment of mA and/or kV according to patient size. COMPARISON: [facility], CT, CT ANGIO HEAD AND NECK, 08/12/2022, 13:34. FINDINGS: Image quality: Diagnostic. BRAIN: CSF spaces: Ventricles are normal in size and shape. Basal cisterns are patent. No extra-axial fluid collections. Brain: No significant abnormality of the brain can be seen. Skull and face: Calvarium and facial bones appear intact, without suspicious lesions. Orbits appear normal. Sinuses: Sinuses and mastoids are clear. HEAD CT ANGIOGRAPHY: Anterior circulation: Intracranial internal carotid arteries are normal in size and flow. The flow within the paired anterior cerebral arteries is normal and symmetric. The flow within the middle cerebral arteries is normal and symmetric. The anterior communicating artery is seen. No aneurysms are seen. Posterior circulation: Visualized portions of the vertebral arteries demonstrate normal caliber, and join to form a normal appearing basilar artery. Flow within the posterior cerebral arteries is normal and symmetric. No aneurysms are seen. NECK CT ANGIOGRAPHY: Carotid system: The great vessels demonstrate a conventional anatomy as they arise from the aortic arch. The origins of the common carotid arteries appear patent. The common carotid arteries demonstrate normal caliber and courses. The bifurcation regions are both widely patent. The internal carotid arteries demonstrate normal calibers and courses. Posterior circulation: The origins of the vertebral arteries both appear widely patent. The more superior extracranial portions of both vertebral arteries also demonstrate normal courses and calibers. They join to form a normal appearing basilar artery. Soft tissues: Visualized neck soft tissues demonstrate no suspicious abnormalities. Bones: No suspicious bony lesions. Visualized cervical spine appears normally aligned. IMPRESSION: No significant intracranial arterial abnormality is seen. No high-grade stenosis, occlusion, aneurysm, or dissection. No significant abnormality is seen within the arteries of the neck. No evidence for dissection. If there is persistent or high clinical suspicion for acute cerebrovascular ischemia/stroke, more sensitive evaluation with brain MRI can be considered. Any quantitative measurements of stenosis were performed using NASCET criteria. Dictated by: Quinten Cordova M.D. on 06/12/2024 at 22:09 Approved by: Quinten Cordova M.D. on 06/12/2024 at 22:14
--- NOTE | 2024-06-12 21:52 | ED.NEUROSD ---
HPI - Neuro Symptoms/Deficit General Chief Complaint: Neuro Symptoms/Deficit Stated Complaint: thinks stroke, open wound left lower leg Time Seen by Provider: 06/12/24 21:51 Source: patient Mode of arrival: Wheelchair History of Present Illness HPI Narrative: 44-year-old female with history of of prior TIA history last year, was being driven private vehicle for assessment of leg ulcer skin problem, during the drive she had difficulty with speech, onset weakness left leg and left arm, trouble speaking, able to swallow. No visual disturbance. No injury or trauma. She takes no aspirin or other blood thinner medications. She denies alcohol drug use. No seizure/shaking activity. On Anticoagulants: No Related Data Home Medications Medication Instructions Recorded Confirmed gabapentin 600 mg tablet 600 mg PO TID 06/13/24 06/13/24 hydroxyzine pamoate 50 mg capsule 50 mg PO 3XD PRN anxiety 06/13/24 06/13/24 ondansetron 4 mg disintegrating 8 mg PO DAILY PRN Nausea And 06/13/24 06/13/24 tablet Vomiting propranolol 20 mg tablet 20 mg PO 3XD PRN Anxiety 06/13/24 06/13/24 trazodone 50 mg tablet 50 mg PO ONCE PM 06/13/24 06/13/24 venlafaxine 75 mg capsule,extended 75 mg PO DAILY 06/13/24 06/13/24 release 24 hr Previous Rx's Medication Instructions Recorded doxycycline hyclate 100 mg capsule 100 mg PO BID #10 caps 06/13/24 lorazepam 1 mg tablet (Ativan) 1 mg PO BID PRN anxiety #7 tabs 06/13/24 Allergies Allergy/AdvReac Type Severity Reaction Status Date / Time Penicillins Allergy Severe Hives Verified 06/13/24 17:29 ceftriaxone [CEFTRIAXONE] Allergy Intermediate Verified 08/12/22 13:13 ketorolac [KETOROLAC] Allergy Intermediate Verified 08/12/22 13:13 acetaminophen [From VICODIN] Allergy Unknown Verified 08/12/22 13:13 enoxaparin [From LOVENOX] Allergy Unknown Verified 08/12/22 13:13 hydrocodone [From VICODIN] Allergy Unknown Verified 08/12/22 13:13 prednisone [PREDNISONE] Allergy Unknown Verified 08/12/22 13:13 MEDICATION FOR BLOOD CLOTS Allergy Intermediate Uncoded 01/04/19 09:44 Review of Systems Review of Systems Narrative: see HPI Hematologic/Lymphatic On Anticoagulants: No Patient History Medical History Peptic ulcer Restless leg syndrome Obesity (BMI 30.0-34.9) delivery delivered Diabetes Surgical History Status post gastric bypass for obesity Hx of cholecystectomy Social History household members: children Smoking Status: Current some day smoker alcohol intake: former Smoking Status: Never smoker alcohol intake frequency: holidays/special occasions only Substance Use Type: does not use Exam Narrative Exam Narrative: GENERAL: Well-developed patient, in mild distress. Anxious appearing HEAD: Atraumatic. Normocephalic. EYES: Pupils equal round and reactive. Extraocular motions intact. No scleral icterus. No injection or drainage. Left facial droop present ENT: Nose without bleeding, purulent drainage. Throat without erythema, tonsillar hypertrophy or exudate. Airway patent. NECK: Trachea midline. Non tender CARDIOVASCULAR: Regular rate and rhythm without murmurs, gallops, or rubs. RESPIRATORY: Clear to auscultation. Breath sounds equal bilaterally. No wheezes, rales, or rhonchi. GASTROINTESTINAL: Abdomen soft, non-tender, nondistended. EXTREMITIES: No edema or joint tenderness. BACK: Nontender without deformity or crepitance. No flank tenderness. NEURO: AOx3. Motor left upper arm seems to have some drift, motor left leg has some drift. Decreased sensation to left upper mid lower face, left arm, left leg. Could not get her to do uuiuqe-xj-opbt with her left arm but able to do so with her right arm. Could not get her to do tphv-vs-gbzs with her left leg but was able to do so with her right leg. See NIHHS scale, nursing and I scored her at 8. SKIN: No rash or erythema of visible areas Initial Vital Signs Initial Vital Signs: Vital Signs Temperature 98.7 F 06/12/24 21:39 Pulse Rate 75 06/12/24 21:39 Respiratory Rate 18 06/12/24 21:39 Blood Pressure 172/97 H 06/12/24 21:39 Pulse Oximetry 98 06/12/24 21:39 Oxygen Delivery Method Room Air 06/12/24 21:39 Scores NIH Stroke Scale Level of Conciousness: Alert, keenly responsive Ask month/age: Answers both questions correctly. Open/close eyes, close hand: Performs both tasks correctly Best gaze horizontal: Normal Visual chanel: No visual loss Facial palsy: Minor paralysis, flattened nasolabial fold, asymmetry on smiling (Left side) Left arm drift: Drifts down, not to bed Right arm drift: No drift for full 10 sec Left leg drift: Drifts down, not to bed Right leg drift: No drift for full 5 sec Limb ataxia: Present in one limb Sensory on face/arms/legs: Mild to moderate sensory loss, can tell touch (Left upper mid lower face) Best language: No aphasia, normal Dysarthria: Mild to mod,some slurring Extinction or inattention: No abnormality Total NIH Stroke scale score: 6 Citation:: 1a=0, 1b=0, 1c=0, 2=0, 3=0, 4=1 for mild left facial droop, 5=1 for left arm drift, 6=1 for left leg drift, 7=1 cannot do left side FTN or heel-hare. 9=2 severe aphasia. 10=1 mild dysarthria. 11=0. Total score=8 Course Orders Ordered: Discontinued Medications Acetaminophen (Acetaminophen 325 Mg Tablet) 650 mg PO Q6H PRN PRN Reason: Fever/Mild Pain (1-3) Albuterol (Albuterol 2.5 Mg/3 Ml Neb (Adult)) 2.5 mg INH [id number] PRN PRN Reason: Dyspnea Aspirin (Aspirin 81 Mg Chew Tab) 324 mg PO NOW ONE Stop: 06/13/24 00:23 Last Admin: 06/13/24 00:33 Dose: 324 mg Documented By: JAN Aspirin (Aspirin Ec 81 Mg Tablet) 81 mg PO DAILY [facility] Last Admin: 06/13/24 10:25 Dose: 81 mg Documented By: KANDI Calcium Carbonate (Calcium Carbonate 500 Mg Tab) 1,000 mg PO Q4HR PRN PRN Reason: Dyspepsia Gabapentin (Gabapentin 600 Mg Tablet) 600 mg PO TID [facility] Last Admin: 06/13/24 14:09 Dose: 600 mg Documented By: Admin: 06/13/24 10:25 Dose: 600 mg Documented By: KANDI Hydroxyzine HCl (Hydroxyzine Hcl 25 Mg Tablet) 50 mg PO TID PRN PRN Reason: anxiety Sodium Chloride (Normal Saline 0.9%) 1,000 mls @ 100 mls/hr IV CONT NILESH Last Admin: 06/13/24 02:16 Dose: 100 mls/hr Documented By: SON Lorazepam (Lorazepam 2 Mg/Ml Inj) 1 mg IV Q6HR PRN PRN Reason: Anxiety Last Admin: 06/13/24 14:08 Dose: 1 mg Documented By: KANDI Melatonin (Melatonin 3 Mg Tablet) 9 mg PO BEDTIME PRN PRN Reason: insomnia Naloxone HCl (Naloxone 0.4 Mg/Ml Vial) 0.2 mg IV Q2MIN PRN PRN Reason: Opiate Reversal Non-Formulary Medication (Hydroxyzine Pamoate) 50 mg PO TID PRN PRN Reason: anxiety Stored In MeUndies 1 each PO PRN PRN PRN Reason: PROTOCOL Ondansetron HCl (Ondansetron 4 Mg/2 Ml Inj) 4 mg IV NOW PRN PRN Reason: Nausea And Vomiting Ondansetron HCl (Ondansetron 4 Mg Odt) 4 mg SL NOW PRN PRN Reason: Nausea And Vomiting Ondansetron HCl (Ondansetron 4 Mg/2 Ml Inj) 4 mg IV Q8HR PRN PRN Reason: Nausea And Vomiting Ondansetron HCl (Ondansetron 4 Mg Odt) 4 mg PO BID PRN PRN Reason: Nausea And Vomiting Propranolol HCl (Propranolol 10 Mg Tablet) 20 mg PO TID PRN PRN Reason: anxiety Last Admin: 06/13/24 04:10 Dose: 10 mg Documented By: SON Vital Signs Vital signs: Vital Signs - 8 hr 06/12/24 21:39 Temperature 98.7 F Pulse Rate 75 Respiratory Rate 18 Blood Pressure 172/97 H Pulse Oximetry 98 Oxygen Delivery Method Room Air MDM - Neuro Symptoms/Deficit Lab Data Attestation: I reviewed the patient's lab results. 06/12/24 21:48 06/13/24 03:10 Labs: Lab Results 06/12/24 Range/Units 21:48 WBC 7.3 (4.5-11.0) X10^3/uL RBC 4.56 (4.0-5.2) X10^6/uL Hgb 11.0 L (12.0-16.0) g/dL Hct 34.5 L (36-46) % MCV 75.7 L (80-100) fL MCH 24.1 L (26-34) PG MCHC 31.9 (30-36) % RDW 16.8 H (11.6-14.8) % Plt Count 262 (150-400) X10^3/uL Neut % (Auto) 69.2 (50-75) % Lymph % (Auto) 22.6 L (25-40) % Latimer % (Auto) 7.1 (3-14) % Eos % (Auto) 0.8 L (2-4) % Baso % (Auto) 0.3 (0-2) % Neut # (Auto) 5100 (2291-8000) /uL Lymph # (Auto) 1700 (0642-8622) /uL Latimer # (Auto) 500 (0-900) /uL Eos # (Auto) 100 (0-450) /uL Baso # (Auto) 0 (0-100) /uL PT 11.9 (9.4-12.5) SECONDS INR 1.0 (0.9-1.3) APTT 32 (25.1-36.5) SECONDS Sodium 139 (137-145) mmol/L Potassium 3.7 (3.4-5.1) mmol/L Chloride 104 (98-107) mmol/L Carbon Dioxide 29 (22-32) mmol/L BUN 15 (7-17) mg/dL Creatinine 1.10 H (0.52-1.04) mg/dL Estimated GFR > 60 (>60) mL/min BUN/Creatinine Ratio 13.6 (6-22) Glucose 166 H (70-100) mg/dL Calcium 9.3 (8.4-10.2) mg/dL Magnesium 2.0 (1.6-2.3) mg/dL Total Bilirubin 0.5 (0.2-1.3) mg/dL AST 27 (14-36) IU/L ALT 16 (<35) IU/L Alkaline Phosphatase 108 (38-126) U/L Total Creatine Kinase 156 H (30-135) U/L Troponin I < 0.012 (0.01-0.034) ng/mL Total Protein 7.9 (6.3-8.2) g/dL Albumin 4.4 (3.5-5.0) g/dL Globulin 3.5 (1.7-4.1) g/dL Albumin/Globulin Ratio 1.3 (1.0-2.8) Point of Care Testing Glucose POC [address] scan - head: Radiologist's Impression: [address] [address] [address] Scan Report Signed Patient: Tabby Edmondson MR#: [id number] : 1980 Acct:[id number] Age/Sex: 44 / F Date of Service: 06/12/24 Loc: ED Accession Number: [id number] Procedure: CT Stroke Ordering Provider: Junito Bridges MD PROCEDURE: CT STROKE INDICATIONS: Positive BE-FAST, Stroke symptoms TECHNIQUE: Noncontrast 4.5 mm thick angled axial sections acquired from the foramen magnum to the vertex, with coronal reformats. For radiation dose reduction, the following was used: automated exposure control, adjustment of mA and/or kV according to patient size. COMPARISON: None. FINDINGS: Image quality: Diagnostic. CSF spaces: Basal cisterns are patent. No extra-axial fluid collections. Ventricles are normal in size and shape. Brain: No midline shift. No intracranial masses or hemorrhage. Baez-white matter interface is normal. Skull and face: Calvarium and visualized facial bones are intact, without suspicious lesions. Sinuses: Visualized sinuses and mastoids are clear. IMPRESSION: No acute intracranial pathology. Findings were discussed with Dr. Bridges at 2200hrs. This study fulfills neurological imaging criteria for inclusion or exclusion of acute stroke therapies based on available published neurological imaging guidelines. Dictated by: Quinten Cordova M.D. on 06/12/2024 at 22:01 Approved by: Quinten Cordova M.D. on 06/12/2024 at 22:05 ECG Data Attestation: I personally reviewed and interpreted this ECG as follows: Interpretation: Normal sinus rhythm with rate of 71, no obvious ST segment elevation or depression changes. CO 150, QRS 78, QTC 441. MDM Narrative Medical decision making narrative: 44-year-old female with reported history of TIA, not taking any antiplatelet or other blood thinner medications, proximally 9:00 p.m. we will being driven for evaluation of her left calf skin sore she develop difficulty with speaking, and had some numbness and weakness to the left face arm and leg. She would difficulty expressing herself, inability to speak, then some improvement in speech, still having difficulty expressing or ideas easily, slurred speech noted. On initial exam by nursing and by myself, NIHSS score 8. She seemed to have some left upper extremity drift, left lower extremity drift, decreased sensation to light touch left face arm and leg, inability to do sxiiml-eq-itkq or rduy-yd-[id number] on the left, severe dysarthria, some aphasia inability to get words out. Code stroke, CT head and CTA head and neck vessels studies initiated on arrival, labs pending. EKG shows normal sinus rhythm CT head noncontrast study, no acute changes per phone call Radiology. CTA head and neck vessels no significant narrowing, no thrombosis or occlusion changes, see radiology report. 2239, tele neurology stroke consultation initiated with [facility], case discussed with Neurology Dr. Canela, who is initiating telemedicine consultation now. 233, tele neurology consultation still in progress, await recommendations 0010, case discussed again with teleneurology Dr Canela again, they felt patient had the same NIHSS score and deficits, felt that patient was a candidate by window and symptoms for thrombolytic therapy, TNK thrombolytic therapy was offered but declined, patient per discussion with patient/daughter she seems willing to have admission for further workup, recommendation is to be admitted on telemetry, have MRI brain study when available in the morning, echocardiogram with bubble study, fasting lipids, initial aspirin 325 mg low now than baby aspirin daily. We will contact hospitalist regarding admission. 0020, case discussed with hospitalist Dr. Mirza, accepts patient for admission to inpatient Critical Care Time Critical Care Time Critical Care Time: Yes Total Critical Care Time: 35 Attestation: The high probability of a clinically significant, sudden or life threatening deterioration of the [cerebrovascular, cardiopulmonary, neurologic.] system(s) required my full and direct attention, intervention and personal management. The aggregate critical care time was [35] minutes. This time is in addition to time spent performing reported procedures but includes the following: [x] Data Review and interpretation [x] Patient assessment and monitoring of vital signs [x] Documentation [x] Medication orders and management Discharge Plan Departure Patient Disposition: Admitted As Inpatient Clinical Impression: Stroke Admit Date/Time: 06/13/24 00:20 Admit Provider: Vasile Mirza
[2024-06-12 21:58] LABS: Add Manual Diff / Slide Review NO; Basophils Absolute Auto 0 /uL (0-100); Basophils Percent Auto 0.3 % (0-2); Eosinophils Absolute Auto 100 /uL (0-450); Eosinophils Percent Auto 0.8 % (2-4); Hematocrit 34.5 % (36-46); Lymphocytes Absolute Auto 1700 /uL (1100-4500); Lymphocytes Percent Auto 22.6 % (25-40); Mean Corpuscular HGB Conc 31.9 % (30-36); Mean Corpuscular Hemoglobin 24.1 PG (26-34); Mean Corpuscular Volume 75.7 fL (80-100); Monocytes Absolute Auto 500 /uL (0-900); Monocytes Percent Auto 7.1 % (3-14); Neutrophils Absolute Auto 5100 /uL (1500-7000); Neutrophils Percent Auto 69.2 % (50-75); Platelet Count 262 X10^3/uL (150-400); Red Blood Cell Count 4.56 X10^6/uL (4.0-5.2); Red Cell Distribution Width 16.8 % (11.6-14.8); White Blood Cell Count 7.3 X10^3/uL (4.5-11.0)
[2024-06-12 22:04] LABS: Prothrombin Time 11.9 SECONDS (9.4-12.5)
--- NOTE | 2024-06-12 22:06 | EKG_ITS ---
[address] [address] Test Date: 2024-06-12 Pat Name: Tabby Edmondson Department: [facility] Room: Gender: Female Auction Assistant: AMBROSIO : 1980 Requested By: Order Number: [id number] Reading MD: Augustine Rodriguez Measurements Intervals [place] Rate: 71 P: 69 CT: 150 QRS: 41 QRSD: 78 T: 35 QT: 406 QTc: 441 Interpretive Statements Normal sinus rhythm Possible Left atrial enlargement Anteroseptal infarct , age undetermined Electronically Signed On 06-13-2024 16:51:30 PDT by Augustine Rodriguez
[2024-06-12 22:07] LABS: PTT Partial Thromboplastin Tim 32 SECONDS (25.1-36.5)
[2024-06-12 22:10] LABS: Alanine Aminotransferase 16 IU/L (<35); Albumin 4.4 g/dL (3.5-5.0); Albumin Globulin Ratio 1.3 (1.0-2.8); Alkaline Phosphatase 108 U/L (38-126); Aspartate Aminotransferase 27 IU/L (14-36); BUN Creatinine Ratio 13.6 (6-22); Bilirubin Total 0.5 mg/dL (0.2-1.3); Blood Urea Nitrogen 15 mg/dL (7-17); Calcium 9.3 mg/dL (8.4-10.2); Carbon Dioxide 29 mmol/L (22-32); Chloride 104 mmol/L (98-107); Creatine Kinase 156 U/L (30-135); Estimated Glomerular Filt Rate > 60 mL/min (>60); Globulin 3.5 g/dL (1.7-4.1); Glucose 166 mg/dL (70-100); HEMOLYSIS < 15 (0-50); Potassium 3.7 mmol/L (3.4-5.1); Sodium 139 mmol/L (137-145); Total Protein 7.9 g/dL (6.3-8.2)
[2024-06-12 22:21] LABS: Troponin I < 0.012 ng/mL (0.01-0.034)
[2024-06-13] VITALS (7 sets, daily range): BP systolic 126–167; BP diastolic 60–108; PULSE 58–85; RESP 17–25; TEMP 35.5–37.1; O2SAT 95–100; BMI 36.2
[2024-06-13] MEDS: ASPIRIN 81 MG CHEW TAB 324 MG PO (00:33)
--- NOTE | 2024-06-13 00:47 | DI.MRI.S_ITS ---
PROCEDURE: MR HEAD/BRAIN WO CON INDICATIONS: TIA TECHNIQUE: Non-contrast axial T1 spin echo, axial T2 fast spin echo, sagittal and axial FLAIR, coronal T2 fast spin echo, axial gradient echo, axial diffusion and ADC through the brain. COMPARISON: [facility], , MR HEAD/BRAIN WO CON, 01/06/2019, 15:17. FINDINGS: Image quality: Extensive patient motion artifact CSF spaces: Ventricles appear symmetric in size and shape. Basal cisterns are patent. No extra-axial fluid collections. Brain: Extensive patient motion artifact decreases sensitivity for identifying pathology. That being said, the diffusion-weighted sequence is of reasonable quality, and no acute infarct is identified, as there is no focal restricted water diffusion noted. No intracranial bleeds or mass effects. There is cerebral volume loss for age. There are periventricular and deep white matter chronic small vessel ischemic changes. Brainstem appears normal. No chronic ischemic insults. Normal intravascular flow voids are present. Skull and face: Calvarial bone marrow is normal in signal. Orbits are normal. Sinuses: Sinuses and mastoids are clear. IMPRESSION: 1. Diffusion-weighted sequence is of diagnostic quality. No acute infarct is identified. 2. Extensive patient motion artifact. Dictated by: Chapincito Dee M.D. on 06/13/2024 at 16:54 Approved by: Chapincito Dee M.D. on 06/13/2024 at 16:57
--- NOTE | 2024-06-13 00:49 | DI.ECHO.S_ITS ---
[facility] : : [address] : : [place] : : [address] : : Phone: [phone] Echocardiogram Report + + :Name: MANUEL DIEGO Study Date: 06/13/2024 Height: 67 in : :[facility] ReadingLocation: Weight: 220 lb : : Gender: Female BSA: 2.1 m2 : :: 1980 Age: 44 yrs BP: 126/60 mmHg: :Reason For Study: TIA : :Ordering Physician: ANDREA, : :SORAYA Performed By: Estephania Pike : :Referring: SORAYA MENDEZ : + + Interpretation Summary The ejection fraction is estimated to be 60-65%. Diastolic parameters suggest probable normal left ventricular diastolic function and normal filling pressures. The right ventricle is normal in size and function. Injection of contrast documented no interatrial shunt. There is mild mitral regurgitation. There is mild tricuspid regurgitation. Pulmonary artery pressures cannot be estimated because of the lack of a measurable TR jet velocity. Procedure: A two-dimensional transthoracic echocardiogram with color flow and Doppler was performed. The study quality was technically adequate. There is no prior echocardiogram noted for this patient. A saline contrast injection was performed to assess for cardiac shunting. The patient was in sinus rhythm with heart rates between 54-70 bpm during the exam. Left Ventricle: The left ventricle is normal in size and wall thickness. The ejection fraction is estimated to be 60-65%. Diastolic parameters suggest probable normal left ventricular diastolic function and normal filling pressures. Right Ventricle: The right ventricle is normal in size and function. Atria: The left atrial size is normal. Right atrial size is normal. There is no Doppler evidence for an interatrial shunt. Injection of contrast documented no interatrial shunt. Mitral Valve: The mitral valve is normal. There is mild mitral regurgitation. Aortic Valve: The aortic valve is trileaflet. The aortic valve opens well. There is no aortic valve stenosis. No aortic regurgitation is present. Tricuspid Valve: The tricuspid valve is normal in structure and function. There is mild tricuspid regurgitation. Pulmonary artery pressures cannot be estimated because of the lack of a measurable TR jet velocity. Pulmonic Valve: The pulmonic valve leaflets are thin and pliable; valve motion is normal. There is mild pulmonic regurgitation. Great Vessels: The aortic root is normal size. The dimensions of the ascending aorta are normal. The inferior vena cava was not visualized. Pericardium/ Pleura There is no pericardial effusion. There is no pleural effusion. MMode/2D Measurements & Calculations LVIDd: 5.0 cm LVOT diam: 2.0 cm LVIDs: 3.2 cm Ao root diam: 2.5 cm FS: 35.3 % asc Aorta Diam: 3.1 cm IVSd: 0.77 cm Ao Arch Diam (Prox Trans): 2.9 cm LVPWd: 0.86 cm LV ibarra. diameter/BSA (cm/m^2): 2.4 LV sys. diameter/BSA (cm/m^2): 1.5 LA A2 area: 20.1 cm2 RA long axis: 4.5 cm LA A4 area: 18.3 cm2 RA area: 10.8 cm2 LA length (vol): 4.8 cm RA vol: 21.9 ml LA vol: 65.4 ml RA : 10.4 ml/m2 LA vol index: 31.1 ml/m2 RVD1 (basal): 2.6 cm RVD2 (mid): 2.3 cm TAPSE: 1.9 cm Doppler Measurements & Calculations Ao V2 max: 148.0 cm/sec LVOT Max Riley: 85.0 cm/sec Ao V2 mean: 104.9 cm/sec LV V1 max P.9 mmHg Ao max P.8 mmHg LV V1 VTI: 20.0 cm Ao mean P.8 mmHg YESSICA(I,D): 1.9 cm2 Ao V2 VTI: 32.7 cm YESSICA(V,D): 1.8 cm2 sev ratio: 0.61 YESSICA indexed to BSA (cm^2/m^2): 0.89 MV E max riley: 88.3 cm/sec TR max riley: 253.1 cm/sec MV A max riley: 66.9 cm/sec TR max P.6 mmHg MV E/A: 1.3 PA V2 max: 82.4 cm/sec Med Peak E' Riley: 8.4 cm/sec PA V2 mean: 58.5 cm/sec E/E' med: 10.6 PA mean P.6 mmHg Lat Peak E' Riley: 6.7 cm/sec PA pr(Accel): 43.0 mmHg E/E' lat: 13.1 E/e' average: 11.9 MV dec time: 0.16 sec SV(LVOT): 61.2 ml Reading Physician:08:17 AM
[2024-06-13] MEDS: SODIUM CHLORIDE 0.9% 1,000 ML 100 ML IV (02:16)
[2024-06-13 03:34] LABS: Alanine Aminotransferase 14 IU/L (<35); Albumin 3.6 g/dL (3.5-5.0); Albumin Globulin Ratio 1.2 (1.0-2.8); Alkaline Phosphatase 106 U/L (38-126); Aspartate Aminotransferase 29 IU/L (14-36); BUN Creatinine Ratio 16.1 (6-22); Bilirubin Total 0.4 mg/dL (0.2-1.3); Blood Urea Nitrogen 15 mg/dL (7-17); Calcium 8.7 mg/dL (8.4-10.2); Carbon Dioxide 28 mmol/L (22-32); Chloride 105 mmol/L (98-107); Estimated Glomerular Filt Rate > 60 mL/min (>60); Glucose 136 mg/dL (70-100); HEMOLYSIS < 15 (0-50); Potassium 3.8 mmol/L (3.4-5.1); Sodium 136 mmol/L (137-145); Total Protein 6.6 g/dL (6.3-8.2)
[2024-06-13 03:37] LABS: Cholesterol 152 mg/dL (140-199); HDL Cholesterol 41 mg/dL (40-60); LDL Cholesterol Calculated 83 mg/dL (<100); Triglycerides 139 mg/dL (35-150)
--- NOTE | 2024-06-13 03:47 | PC.ADMIT ---
Addendum entered by Candi Jones R.N. 06/13/24 05:11: Complained of anxiety so attempted to medicate with Propranolol but she refused to take full dose stating it makes her heart feel funny. Frequently accreditation specialist light asking for multiple differing things. Wanting to urinate but refusing to use bedpan. Offered external catheter instead citing that MD ordered bedrest until she can be evaluated by PT. She finall was agreeable to using external catheter so we were able to obtain a urine for drug screen. Now she is wanting to have external catheter removed. Frequently stating she is going to leave and go home. Original Note: [address] [facility] [address] A6 Admission Note: The patient,Tabby Edmondson,44 y/o, was given written information regarding hospital policies, unit procedures and contact persons. Patient's smoking status: Current some day smoker. Vital Signs - 8 hr 06/12/24 21:39 06/12/24 22:25 06/12/24 22:30 Temperature 98.7 F Pulse Rate 75 79 78 Respiratory Rate 18 24 24 Blood Pressure 172/97 H Pulse Oximetry 98 100 100 Oxygen Delivery Method Room Air 06/12/24 22:31 06/12/24 22:31 06/12/24 23:00 Temperature Pulse Rate 77 74 Respiratory Rate 22 22 Blood Pressure 128/78 Pulse Oximetry 100 95 Oxygen Delivery Method 06/12/24 23:01 06/12/24 23:01 06/12/24 23:30 Temperature Pulse Rate 74 68 Respiratory Rate 24 20 Blood Pressure 175/79 H Pulse Oximetry 98 98 Oxygen Delivery Method 06/12/24 23:31 06/12/24 23:31 06/13/24 00:00 Temperature Pulse Rate 68 85 Respiratory Rate 23 21 Blood Pressure 147/69 H Pulse Oximetry 93 95 Oxygen Delivery Method 06/13/24 00:00 06/13/24 00:30 06/13/24 00:31 Temperature Pulse Rate 77 Respiratory Rate 21 Blood Pressure 167/102 H 136/70 Pulse Oximetry 99 Oxygen Delivery Method 06/13/24 00:31 06/13/24 01:00 06/13/24 02:28 Temperature 98.6 F Pulse Rate 78 73 Respiratory Rate 25 H 18 Blood Pressure 136/83 Pulse Oximetry 95 100 Oxygen Delivery Method Room Air Patient is oriented except did not know day of the month. She has a left facial droop, slurred speech and difficulty word finding. Left arm drift not down to bed and left leg drifts down to bed. Unable to perform heel to hare with left leg. NIH = 8. Breath sounds are CTA with RA sat of 100%. HRR w/telemetry reading of SR. She expresses anxiety related to chronic panic attacks and high level PTSD. Denied nausea and was provided snack. BT present and abdomen is soft. Reports normally continent of B&B but has not voided since arrival in ER. Is able to reposition herself in bed. Gait not assessed as activity level ordered is bedrest. She has a chronic 1X2cm ulcer on posterior left calf with surrounding erythema. She also has reddened hands, knees and heels. She can in with dirty feet which were cleansed and found to have cracked, calloused skin on lateral aspect of feet and on heels. She declined to have SCD's applied as states she is claustrophobic and would have increased anxiety with them on so educated on DVT prevention. Fall risk score is high and bed alarm is activated. Swallow eval done by MOLDING PROCESS TECHNICIAN so not repeated. Dr. Mirza visited with patient via telehealth communication and he was shown her skin ulcer. Oriented on how to use call light and bed controls. Instructed in plan of care going forward including MRI, echo and therapy evals in the morning.
--- NOTE | 2024-06-13 04:06 | P.HP_ITS ---
History of Present Illness History of Present Illness Chief complaint: thinks stroke, open wound left lower leg Narrative: 44 years old female with history of prior TIA, obesity, restless leg syndrome, peptic ulcer disease, diabetes, presented to the ER with difficulty with her speech and weakness of her left arm and left leg while she was driven by her daughter at school doctors appointment for assessment of her leg ulcer skin problem. The patient has difficulty expressing herself and unable to speak. She also had some decreased satiation to light touch of left face, arm and leg. Unable to do [id number] and yazi-xq-[id number] on the left. CT of the head and CTA of the head and neck was unremarkable. Teleneurologist was contacted and recommended thrombolytic therapy but the patient declined. She agreed to initiate aspirin and have MRI and echo in the morning. All glucose 166, creatinine 1.1, H&H 11/34.5. She was given in the ER aspirin 324 mg p.o. Patient also reports some anxiety panic attacks and PTSD. Similar symptoms with TIA in 2019 with negative workup. [facility] Medical History delivery delivered Diabetes Obesity (BMI 30.0-34.9) Peptic ulcer Restless leg syndrome Surgical History Hx of cholecystectomy Status post gastric bypass for obesity Social History household members: children Smoking Status: Current some day smoker alcohol intake: former Meds Home Medications and Allergies Home Medications Medication Instructions Recorded Confirmed Type gabapentin 600 mg tablet 600 mg PO TID 06/13/24 06/13/24 History hydroxyzine pamoate 50 mg capsule 50 mg PO 3XD PRN anxiety 06/13/24 06/13/24 History ondansetron 4 mg disintegrating 4 mg PO BID PRN Nausea And Vomiting 06/13/24 06/13/24 History tablet propranolol 20 mg tablet 20 mg PO 3XD PRN Anxiety 06/13/24 06/13/24 History Allergies Allergy/AdvReac Type Severity Reaction Status Date / Time ceftriaxone [CEFTRIAXONE] Allergy Intermediate Verified 08/12/22 13:13 ketorolac [KETOROLAC] Allergy Intermediate Verified 08/12/22 13:13 acetaminophen [From VICODIN] Allergy Unknown Verified 08/12/22 13:13 enoxaparin [From LOVENOX] Allergy Unknown Verified 08/12/22 13:13 hydrocodone [From VICODIN] Allergy Unknown Verified 08/12/22 13:13 prednisone [PREDNISONE] Allergy Unknown Verified 08/12/22 13:13 MEDICATION FOR BLOOD CLOTS Allergy Intermediate Uncoded 01/04/19 09:44 Review of Systems Review of Systems ROS: Yes All systems reviewed with the patient and are negative except as otherwise documented Constitutional Constitutional: Reports as per HPI and Reports system reviewed and no additional complaints, except as documented Eyes Eyes: Reports as per HPI and Reports system reviewed and no additional complaints, except as documented ENT Ears, Nose, Mouth, and Throat: Yes as per HPI and Yes system reviewed and no additional complaints, except as documented Cardiovascular Cardiovascular: Reports system reviewed and no additional complaints, except as documented Respiratory Respiratory: Reports system reviewed and no additional complaints, except as documented Gastrointestinal Gastrointestinal: Reports system reviewed and no additional complaints, except as documented Genitourinary Genitourinary: Reports system reviewed and no additional complaints, except as documented Musculoskeletal Musculoskeletal: Reports system reviewed and no additional complaints, except as documented, Reports abnormal gait and Reports numbness Neurologic Neurologic: Reports system reviewed and no additional complaints, except as documented, Reports abnormal gait, Reports confusion and Reports numbness Psychiatric Psychiatric: Reports system reviewed and no additional complaints, except as documented and Reports confusion Exam Vital Signs (past 8 hours): - 06/12/24 21:39 06/12/24 22:25 06/12/24 22:30 Temperature 98.7 F Pulse Rate 75 79 78 Respiratory Rate 18 24 24 Blood Pressure 172/97 H Pulse Oximetry 98 100 100 Oxygen Delivery Method Room Air 06/12/24 22:31 06/12/24 22:31 06/12/24 23:00 Temperature Pulse Rate 77 74 Respiratory Rate 22 22 Blood Pressure 128/78 Pulse Oximetry 100 95 Oxygen Delivery Method 06/12/24 23:01 06/12/24 23:01 06/12/24 23:30 Temperature Pulse Rate 74 68 Respiratory Rate 24 20 Blood Pressure 175/79 H Pulse Oximetry 98 98 Oxygen Delivery Method 06/12/24 23:31 06/12/24 23:31 06/13/24 00:00 Temperature Pulse Rate 68 85 Respiratory Rate 23 21 Blood Pressure 147/69 H Pulse Oximetry 93 95 Oxygen Delivery Method 06/13/24 00:00 06/13/24 00:30 06/13/24 00:31 Temperature Pulse Rate 77 Respiratory Rate 21 Blood Pressure 167/102 H 136/70 Pulse Oximetry 99 Oxygen Delivery Method 06/13/24 00:31 06/13/24 01:00 06/13/24 02:28 Temperature 98.6 F Pulse Rate 78 73 Respiratory Rate 25 H 18 Blood Pressure 136/83 Pulse Oximetry 95 100 Oxygen Delivery Method Room Air Oxygen Delivery Method Room Air Const General: cooperative, comfortable and well developed Orientation: alert and oriented x3 HENMN Head: normal to inspection, normocephalic and atraumatic Face and sinus: normal facial exam Mouth: oral mucosae normal and moist mucous membranes Throat: posterior oropharynx normal Eyes General: appearance normal, both eyes and all related structures Pupils: PERRL EOM: EOM intact bilaterally Neck Neck: normal visual inspection and full ROM Chest Chest: normal inspection of the chest Resp Effort & Inspection: normal respiratory effort and able to speak in complete sentences Auscultation: clear to auscultation bilaterally Cardio Palpation: normal PMI Rate: regular rate Rhythm: regular rhythm Heart Sounds: S1 normal and S2 normal GI Inspection: normal to inspection Palpation: soft and no hepatosplenomegaly Auscultation: normal bowel sounds Skin General: no rashes or lesions noted Lesions: no lesions Rashes: no rashes Trauma: no lacerations or abrasions Neuro General: patient alert, patient awake and patient oriented x3 Cranial Nerves: CN's II-XI intact bilaterally Cognition: normal cognition Motor: muscle tone normal throughout Extrem General: full ROM and no calf tenderness Psych Appearance: grossly normal Mental Status: mental status grossly normal Speech and Movement: speech and movement normal Objective Labs 06/12/24 21:48 06/13/24 03:10 Labs: Laboratory Results - last 24 hr 06/12/24 06/13/24 21:48 03:10 WBC 7.3 RBC 4.56 Hgb 11.0 L Hct 34.5 L MCV 75.7 L MCH 24.1 L MCHC 31.9 RDW 16.8 H Plt Count 262 Neut % (Auto) 69.2 Lymph % (Auto) 22.6 L [place] % (Auto) 7.1 Eos % (Auto) 0.8 L Baso % (Auto) 0.3 Neut # (Auto) 5100 Lymph # (Auto) 1700 [place] # (Auto) 500 Eos # (Auto) 100 Baso # (Auto) 0 PT 11.9 INR 1.0 APTT 32 Sodium 139 136 L Potassium 3.7 3.8 Chloride 104 105 Carbon Dioxide 29 28 BUN 15 15 Creatinine 1.10 H 0.93 Estimated GFR > 60 > 60 BUN/Creatinine Ratio 13.6 16.1 Glucose 166 H 136 H Calcium 9.3 8.7 Magnesium 2.0 Total Bilirubin 0.5 0.4 AST 27 29 ALT 16 14 Alkaline Phosphatase 108 106 Total Creatine Kinase 156 H Troponin I < 0.012 Total Protein 7.9 6.6 Albumin 4.4 3.6 Globulin 3.5 3.0 Albumin/Globulin Ratio 1.3 1.2 Triglycerides 139 Cholesterol 152 LDL Cholesterol, Calc 83 HDL Cholesterol 41 Assessment & Plan Assessment & Plan narrative: TIA/CVA-Initial CT head and CT angiogram shows no obvious abnormality. Patient declined thrombolysis. -ASA, -Permissive hypertension, prn Labetalol/ hydralazine for SBP>220. -ECHO, MRI head and neck with diffusion studies, carotid ultrasound, -Telemetry monitoring, Serial neurochecks -Strict bedrest for now -Monitor hemodynamics -Continue IV fluids -Check lipid panel in a.m., thyroid function test, blood sugar monitoring, -PT/OT and swallowing evaluation in a.m. I would keep him n.p.o. for now -Sroke education -Euthermia, Euglycemia -fall precaution Mild hyperglycemia without any history of diabetes. Check A1c and monitor blood sugar Anxiety/panic attacks/PTSD. Restart hydroxyzine and propranolol Time-Based Coding :: [TOTAL MINUTES] spent with patient and on the chart (including review of chart, obtaining history, exam, reviewing outside data, placing orders, documenting exam and treatment plan, and counseling patient) on [DATE]. Quality VTE Deep Vein Thrombosis/Pulmonary Embolism Present on Admission: No MIPS - Admit I confirm the patient?s Advance Care Plan is present, Code status is documented, Surrogate decision maker is in patient?s record [If Yes, STOP here]: Yes MIPS - Meds 'Current medications' to include all prescriptions, [id number] products, herbals, cannabis/cannabidiol products, and vitamin/mineral/dietary (nutritional) supplements. I have utilized all available resources to obtain, update, or review the patient?s current medications. [If Yes, STOP here]: Yes
[2024-06-13 04:08] LABS: Thyroid Stimulating Hormone 1.45 uIU/mL (0.47-4.68)
[2024-06-13] MEDS: PROPRANOLOL 10 MG TABLET 20 MG PO (04:10)
[2024-06-13 04:54] LABS: Ur Creatinine Normal (Normal); Ur Specific Gravity Normal (Normal); Urine Amphetamines Positive (Negative); Urine Barbiturates Negative (Negative); Urine Benzodiazepines Negative (Negative); Urine Cocaine Negative (Negative); Urine MDMA Negative (Negative); Urine Methadone Negative (Negative); Urine Methamphetamines Positive (Negative); Urine Opiates Negative (Negative); Urine Oxycodone Negative (Negative); Urine Phencyclidine Negative (Negative); Urine THC Negative (Negative); Urine Tricyclic Antidepressant Negative (Negative); Urine pH Normal (Normal)
--- NOTE | 2024-06-13 08:03 | PM.HP.1 ---
History of Present Illness History of Present Illness Date Patient Seen: 06/13/24 Chief complaint: thinks stroke, open wound left lower leg Narrative: From night doctor: 44 years old female with history of prior TIA, obesity, restless leg syndrome, peptic ulcer disease, diabetes, presented to the ER with difficulty with her speech and weakness of her left arm and left leg while she was driven by her daughter at school doctors appointment for assessment of her leg ulcer skin problem. The patient has difficulty expressing herself and unable to speak. She also had some decreased satiation to light touch of left face, arm and leg. Unable to do [id number] and exvz-st-eard on the left. CT of the head and CTA of the head and neck was unremarkable. Teleneurologist was contacted and recommended thrombolytic therapy but the patient declined. She agreed to initiate aspirin and have MRI and echo in the morning. All glucose 166, creatinine 1.1, H&H 11/34.5. She was given in the ER aspirin 324 mg p.o. Patient also reports some anxiety panic attacks and PTSD. Similar symptoms with TIA in 2019 with negative workup. Additional information: She was still anxious but her neurologic symptoms have improved. She can speak without difficulty. She denies any headache at this point. No visual changes. She was having lot of anxiety, and has had a lot of stress at home. This relates to family dynamics. She denies any nausea, chest pain or abdominal pain. She does have a left calf ulcer which is improving on antibiotics. She denies any numbness weakness of arms or legs. No facial droop. [facility] Medical History Peptic ulcer Restless leg syndrome Obesity (BMI 30.0-34.9) delivery delivered Diabetes Surgical History Status post gastric bypass for obesity Hx of cholecystectomy Social History household members: children Smoking Status: Current some day smoker alcohol intake: former Meds Home Medications and Allergies Home Medications Medication Instructions Recorded Confirmed Type gabapentin 600 mg tablet 600 mg PO TID 06/13/24 06/13/24 History hydroxyzine pamoate 50 mg capsule 50 mg PO 3XD PRN anxiety 06/13/24 06/13/24 History ondansetron 4 mg disintegrating 8 mg PO DAILY PRN Nausea And 06/13/24 06/13/24 History tablet Vomiting propranolol 20 mg tablet 20 mg PO 3XD PRN Anxiety 06/13/24 06/13/24 History trazodone 50 mg tablet 50 mg PO ONCE PM 06/13/24 06/13/24 History venlafaxine 75 mg capsule,extended 75 mg PO DAILY 06/13/24 06/13/24 History release 24 hr Allergies Allergy/AdvReac Type Severity Reaction Status Date / Time ceftriaxone [CEFTRIAXONE] Allergy Intermediate Verified 08/12/22 13:13 ketorolac [KETOROLAC] Allergy Intermediate Verified 08/12/22 13:13 acetaminophen [From VICODIN] Allergy Unknown Verified 08/12/22 13:13 enoxaparin [From LOVENOX] Allergy Unknown Verified 08/12/22 13:13 hydrocodone [From VICODIN] Allergy Unknown Verified 08/12/22 13:13 prednisone [PREDNISONE] Allergy Unknown Verified 08/12/22 13:13 MEDICATION FOR BLOOD CLOTS Allergy Intermediate Uncoded 01/04/19 09:44 Review of Systems Review of Systems Narrative: All else reviewed and otherwise unremarkable except as noted in the history and physical. Exam Vital Signs (past 8 hours): - 06/13/24 00:30 06/13/24 00:31 06/13/24 00:31 Temperature Pulse Rate 77 78 Respiratory Rate 21 25 H Blood Pressure 136/70 Pulse Oximetry 99 95 Oxygen Delivery Method Oxygen Flow Rate 06/13/24 01:00 06/13/24 02:28 06/13/24 05:00 Temperature 98.6 F 98.7 F Pulse Rate 73 72 Respiratory Rate 18 20 Blood Pressure 136/83 126/60 Pulse Oximetry 100 98 Oxygen Delivery Method Room Air Oxygen Flow Rate 0 Oxygen Delivery Method Room Air Oxygen Flow Rate 0 Narrative Exam Narrative: NAD, alert and oriented, fluent speech, calm. Normocephalic skull, EOMI, anicteric sclera, symmetric pupils. Oropharynx unremarkable, no droop. Neck supple, midline trachea, no adenopathy. Lungs clear, normal rate and effort. Heart regular, no murmur gallop or rub. Abdomen is soft, non distended and non tender. Extremities are free of edema. Skin is free of rash or lesions. Joints are not swollen or deformed. Judgment appears to be normal. Neuro: Cranial nerves are grossly intact, no facial droop, EOMI, conjugate gaze. She was normal speech. No dysarthria. Arms and legs have normal motor strength normal range of motion. Objective ECG Impression: Normal sinus rhythm Possible Left atrial enlargement Anteroseptal infarct , age undetermined Imaging Multiple studies:: Radiologist's impression: CT brain: No acute intracranial pathology. CTA: No significant intracranial arterial abnormality is seen. No high-grade stenosis, occlusion, aneurysm, or dissection. No significant abnormality is seen within the arteries of the neck. No evidence for dissection. If there is persistent or high clinical suspicion for acute cerebrovascular ischemia/stroke, more sensitive evaluation with brain MRI can be considered. CXR: Diffuse interstitial prominence involving the left hemithorax with patchy opacities of the left perihilar and left lung base. Findings may represent an infectious or inflammatory process. Asymmetric pulmonary edema may have a similar appearance if clinically appropriate. Recommend follow up chest radiograph 4-6 weeks after treatment to document resolution of findings and/or return to baseline examination. Labs 06/12/24 21:48 06/13/24 03:10 Labs: Laboratory Results - last 24 hr 06/12/24 06/13/24 06/13/24 21:48 03:10 04:30 WBC 7.3 RBC 4.56 Hgb 11.0 L Hct 34.5 L MCV 75.7 L MCH 24.1 L MCHC 31.9 RDW 16.8 H Plt Count 262 Neut % (Auto) 69.2 Lymph % (Auto) 22.6 L [place] % (Auto) 7.1 Eos % (Auto) 0.8 L Baso % (Auto) 0.3 Neut # (Auto) 5100 Lymph # (Auto) 1700 [place] # (Auto) 500 Eos # (Auto) 100 Baso # (Auto) 0 PT 11.9 INR 1.0 APTT 32 Sodium 139 136 L Potassium 3.7 3.8 Chloride 104 105 Carbon Dioxide 29 28 BUN 15 15 Creatinine 1.10 H 0.93 Estimated GFR > 60 > 60 BUN/Creatinine Ratio 13.6 16.1 Glucose 166 H 136 H Calcium 9.3 8.7 Magnesium 2.0 Total Bilirubin 0.5 0.4 AST 27 29 ALT 16 14 Alkaline Phosphatase 108 106 Total Creatine Kinase 156 H Troponin I < 0.012 Total Protein 7.9 6.6 Albumin 4.4 3.6 Globulin 3.5 3.0 Albumin/Globulin Ratio 1.3 1.2 Triglycerides 139 Cholesterol 152 LDL Cholesterol, Calc 83 HDL Cholesterol 41 TSH 1.45 U Opiates 300ng/mL cut Negative Ur Oxycodone Screen Negative Urine Methadone Screen Negative Ur Barbiturates Screen Negative U Tricyclic Antidepress Negative Ur Phencyclidine Scrn Negative Ur Amphetamines Screen Positive H U Methamphetamines Scrn Positive H Ur MDMA Scrn (Ecstasy) Negative U Benzodiazepines Scrn Negative Urine Cocaine Screen Negative U Marijuana (THC) Screen Negative Urine pH Normal Urine Specific [place] Normal Ur Creatinine Normal Assessment & Plan Assessment & Plan narrative: 1. TIA/CVA. present on admission and active. -Initial CT head and CT angiogram shows no obvious abnormality. Patient declined thrombolysis. -ASA, -Permissive hypertension, prn Labetalol/ hydralazine for SBP>220. -ECHO, MRI head and neck with diffusion studies, carotid ultrasound, -Telemetry monitoring, Serial neurochecks 2. CXR infiltrates, present on admission and active. -5 days of doxycycline PO. 3. Mild hyperglycemia without any history of diabetes. Check A1c and monitor blood sugar 4. Anxiety/panic attacks/PTSD. Restart hydroxyzine and propranolol 5. DM 2, present on admission and active. 6. Obesity class 2, present on admission and active. 7. Restless legs, present on admission and active. Admitted to observation status with anticipation of 1 night need for hospital services. KUSHAL/Dispo: 06/13 home likely. Time-Based Coding :: 35 min spent with patient and on the chart (including review of chart, obtaining history, exam, reviewing outside data, placing orders, documenting exam and treatment plan, and counseling patient) on 06/13. Quality VTE Deep Vein Thrombosis/Pulmonary Embolism Present on Admission: No MIPS - Admit I confirm the patient?s Advance Care Plan is present, Code status is documented, Surrogate decision maker is in patient?s record [If Yes, STOP here]: Yes The patient?s Advance Care plan is not present because I confirmed today that the patient does not wish or was not able to name a surrogate decision maker or provide an Advance Care Plan.: Yes
--- NOTE | 2024-06-13 09:11 | ST.IPCSEOM ---
Visit Care Team Role Provider Type Marcus Fisher MD Primary Care Provider Physician Specialty: Family Practice Address: [address] [facility] [facility], [address], [place], [address] Email: Junito Bridges MD Emergency Provider Physician Referring Provider Specialty: Emergency Medicine Address: [address] [place] [address], [id number] Fax: Email: [email or web address] Admit Provider Physician Attending Provider Specialty: Internal Medicine Address: [address] [place] [address], [phone] Fax: Email: [email or web address] Diagnoses Cerebral infarction, unspecified (06/13/24) Past Medical History (Last Reviewed 06/13/24 @ 08:06 by Augustine Rodriguez MD) delivery delivered (Medical) Diabetes (Medical) Obesity (BMI 30.0-34.9) (Medical) Peptic ulcer (Medical) Restless leg syndrome (Medical) Speech-Language Pathology Swallow Evaluation CONCRETE SMOOTHER Clinical Swallow Evaluation Start: 06/13/24 08:47 Freq: Status: Active Protocol: Document 06/13/24 08:57 MA (Rec: 06/13/24 09:11 MA [id number]) Clinical Swallow Evaluation Session Time Visit Start Time 08:20 Visit Stop Time 08:51 Total Visit Minutes [address] Mirza Reason for Referral Possible CVA Setting Assessment Location Acute Care Visit Type Note Type Initial evaluation Patient Information Identification Type Name,Wristband History Per H&P: 44 years old female with history of prior TIA, obesity, restless leg syndrome , peptic ulcer disease, diabetes, presented to the ER with difficulty with her speech and weakness of her left arm and left leg while she was driven by her daughter at school doctors appointment for assessment of her leg ulcer skin problem. The patient has difficulty expressing herself and unable to speak. She also had some decreased satiation to light touch of left face, arm and leg. Unable to do finger-to- nose and [id number] on the left. CT of the head and CTA of the head and neck was unremarkable. Teleneurologist was contacted and recommended thrombolytic therapy but the patient declined. She agreed to initiate aspirin and have MRI and echo in the morning. All glucose 166, creatinine 1. 1, H&H 11/34.5. She was given in the ER aspirin 324 mg p.o. Patient also reports some anxiety panic attacks and PTSD . Similar symptoms with TIA in 2019 with negative workup. PMHx significant for: delivery delivered Diabetes Obesity (BMI 30.0-34.9) Peptic ulcer Restless leg syndrome Pt referred for ST evaluation d/t possible stroke in order to assess swallow function. Subjective Observations Patient sitting upright in bed with breakfast meal tray in front of her. Pt reports she consumed breakfast, however did not enjoy the taste but denies any swallow trouble. Pt oriented x3 and compliant with swallow evaluation. Pt reports slightly slurred speech that occurs after talking a lot, and some mild word finding difficulties. However, Pt appeared 100% intelligible during eval with no occurrences of word finding difficulties. Reported by Patient/Caregiver Current Diet Regular (IDDSI 7) Baseline Feeding Method Independent in self-feeding The IDDSI Framework Protocol: IDDSI.1 Objective Assessment Mental Status Alert,Responsive,Cooperative Dentition Edentulous Comment Oral motor exam revealed mild left sided facial weakness, reduced lingual and labial strength however adequate for speech production. ROM appears WFL. Pt is edentulous and reports she has dentures that are too big and does not wear them when eating. Food and Liquid Trials Position During Assessment Upright (90 degrees) Liquids Trialed Thin (IDDSI 0) Solid Trials Soft & Bite-sized (IDDSI 6), Regular (IDDSI 7) Administration Type Self-feeding Oral Impairment Within functional limits Oral Phase Comments Pt consumed solo cracker and a peanut butter and jelly sandwich with about 4 oz of thin soda via cup. For solids Pt demonstrated adequate bite size and rate, prolonged mastication secondary to lack of dentition however adequate bolus formation and control, extended ap transport, piecemeal deglutition, minimal oral stasis. For thin liquids via cup Pt demonstrated good oral acceptance and containment, timely ap transport. Pharyngeal Impairment Within functional limits Pharyngeal Phase Comments No overt s/s of aspiration observed with all PO trials, specifically coughing or choking. Pt with clear vocal quality post swallows. Fatigue/Endurance Endurance WNL The IDDSI Framework Protocol: IDDSI.1 Findings Swallowing Function Within functional limits Severity of Swallow Impairment Within functional limits Prognosis Good Based on Cognitive status Impact on Safety and Functioning No limitations Recommendations Instrumental Assessment No Swallowing Treatment No Recommended Solids Regular (IDDSI 7) Recommended Liquids Thin (IDDSI 0) Other Recommendations ST recommends IDDSI 7/IDDSI 0 with the below mentioned safe swallowing strategies. ST recommends re-referral for speech therapy if change in status or worsening of symptoms. Safety Precautions/Swallowing Remain upright (90 degrees) Recommendations during all oral intake,Upright position at least 30 minutes after meals,Small bites and sips when eating,Slow rate; swallow between bites, Alternate liquids and solids Medication Recommendations As Tolerated Education Patient/Caregiver Education Described results of evaluation,Patient expressed understanding of evaluation
[2024-06-13] MEDS: GABAPENTIN 600 MG TABLET PO ×2 (10:25→14:09)
[2024-06-13] MEDS: ASPIRIN EC 81 MG TABLET PO (10:25)
--- NOTE | 2024-06-13 10:55 | PT.IIE ---
Current Diagnoses Cerebral infarction, unspecified (06/13/24) Surgical History (Last Reviewed 06/13/24 @ 08:06 by Augustine Rodriguez MD) Hx of cholecystectomy Status post gastric bypass for obesity Medical History (Last Reviewed 06/13/24 @ 08:06 by Augustine Rodriguez MD) delivery delivered Diabetes Obesity (BMI 30.0-34.9) Peptic ulcer Restless leg syndrome Physical Therapy Inpatient Evaluation/Re-Eval M1 PT/OT-IP Prior Functional Status Start: 06/13/24 12:43 Freq: NEEDED Status: Active Protocol: Document 06/13/24 10:55 AB (Rec: 06/13/24 12:54 AB [id number]) Medical Review Prior Functional Status Medical History Reviewed Yes Communication able to make needs known; is sleepy/drowsy Mobility and Gait pt stated that she was independent with all mobilities and ambulation without AD Social History Household Members children Living Arrangements Apartment/Condo Number of Floors (Floors) Two Floors Number of Stairs To Enter/Railing? 2 platform steps to enter th ehouse 15 steps L rail ascending to get to bedroom level Home Environment Standard Height Toilet,Tub/ Shower Home Equipment Grab Bars In Shower M2 PT-IP Current Condition Start: 06/13/24 12:43 Freq: NEEDED Status: Active Protocol: Document 06/13/24 10:55 AB (Rec: 06/13/24 12:54 AB [id number]) Physical Therapy Current Condition Current Condition Evaluation Date 06/13/24 Treatment Diagnosis r/o CVA; difficulty in walking Onset Date 06/13/24 M3 PT-IP Subjective Start: 06/13/24 12:43 Freq: NEEDED Status: Active Protocol: Document 06/13/24 10:55 AB (Rec: 06/13/24 12:54 AB [id number]) Subjective Physical Therapy Visit Type Type Initial Evaluation Visit Start Time 10:55 Visit Stop Time 11:15 Number of PRINTER SLOTTER OPERATOR Visits 0 Physical Therapy Visit Comments Patient Comments agreeable to do PT M4 PT-IP Mobility and Gait Start: 06/13/24 12:43 Freq: NEEDED Status: Active Protocol: Document 06/13/24 10:55 AB (Rec: 06/13/24 12:54 AB [id number]) PT-Bed Mobility Assessment Supine to Sit Supine to Sit Independent Sit to Supine Sit to Supine Independent PT-Transfer Assessment Sit to and From Stand Sit to and from Stand Standby Assistance,Contact Guard Assistance,1 Person Assistance,Use of Upper Extremities Equipment Transfer Assistive Device None,Gait Belt,Front Wheeled Walker Orthotic/Prosthetic Devices or Brace: No Comments Mobility Comments pt supine in bed and agreeable to do PT. completed supine to sit mod I, sit to stand from EOB SBA to CGA and ambulated in room using FWW SBA to CGA. pt sat back on EOB. assessed ambulation without AD and completed CGA and cues. presents with antalgic gait and pt tends to hold on to bed/counter for support. pt stated that she has her children at home to assist her if needed. pt agreed to do steps. step stool positioned and pt completed up/down step stool without AD min A and cues. pt went back to bed. mod I for sit to supine. pt stated that she has her children to assist her if needed. Gait Assessment Gait Gait Assistance Required: Standby Assistance,Contact Guard Assist Distance (Feet) 40 Able to Maintain Weight Bearing Status Yes During Gait Assistive Devices Assistive Device None,Gait Belt,Front Wheeled Walker Orthotic/Prosthetic Devices or Brace: No Gait Deviations General Gait Pattern Antalgic,Decreased Stride Length Factors Limiting Gait Function Factors Limiting Gait Function Decreased Activity Tolerance, Decreased Strength,Limited Range of Motion,Poor Balance, Poor Safety Awareness Stair Climbing Assessment Evaluation Level of Assist On Stairs Minimal Assistance Devices Stair Climbing Assistive Devices None Technique/Endurance Stair Climbing Direction Ascend and Descend Stair Climbing Technique Step to Step Number of Steps Climbed 1 Query Text: Stair Climbing Set # Repetitions (reps) 2 PT-Balance Assessment Sitting Balance and Reactions Static Sitting Balance Ability Good Dynamic Sitting Balance Ability Good Standing Balance and Reactions Static Standing Balance Ability Fair Dynamic Standing Balance Ability Fair Device Used FWW M5 PT-IP Objective Assessments Start: 06/13/24 12:43 Freq: NEEDED Status: Active Protocol: Document 06/13/24 10:55 AB (Rec: 06/13/24 12:54 AB [id number]) Orientation Orientation/Cognition Level of Alertness Alert Orientation Name,Place,Situation Safety Awareness Decreased Safety Awareness Memory Description No Deficits Noted Gross Range of Motion Lower Extremity ROM Assessment Within Functional Limits Strength Lower Extremity Strength Assessment Left Impaired Hip 3-/5 Knee 3+/5 Sensation Assessment Sensation Sensation Description Numbness Comments Sensation Comments per pt LLE numbness Muscle Tone Muscle Tone WNL Yes M6 PT-IP Treatment Start: 06/13/24 12:43 Freq: NEEDED Status: Active Protocol: Document 06/13/24 10:55 AB (Rec: 06/13/24 12:54 AB [id number]) Physical Therapy Treatment Education Education Provided Safety M7 PT-IP Assessment and Plan Start: 06/13/24 12:43 Freq: NEEDED Status: Active Protocol: Document 06/13/24 10:55 AB (Rec: 06/13/24 12:54 AB [id number]) PT Summary Assessment and Plan Potential Rehabilitation Potential Fair Status of Condition at Evaluation Evolving Summary Impairments Pain,ROM,Strength,Balance, Coordination,Sensation,Tone, Cognition,Bed Mobility, Transfers,Gait,Activity Tolerance Assessment Summary pt is a 44 y/o F who presented to the ED for difficulty with speech and L sided weakness. pt admitted to r/o CVA. pt requiring SBA to CGA with ambulation without AD and min A for stairs. pt stated taht her children will be able to assist her at home. pt will benefit from outpt PT Goals Bed Mobility Goal Independent Transfer Goal Independent,Front Wheeled Walker Gait Goal Independent,Front Wheel Walker Gait Distance 200 Other Goals improve transfers and ambulation without AD mod I ~ 300 ft up/down 2 platform steps SBA up/down 15 steps L rail SBA Days to Meet Goals 10 Frequency of Treatment Frequency Of Treatment Once a Day Treatment Plan Physical Therapy Treatment Plan Bed Mobility Training,Transfer Training,Gait Training, Therapeutic Exercise,Balance Retraining,Discharge Planning, Hot or Cold Pack,Neuromuscular Re-ed,Coordination Retraining ,Manual Therapy Precautions Other Precautions falls Recommendations To Nursing Amount of Assist Needed 1 Person Assist Discharge Recommendations PT Discharge Recommendations Home with 13/06 Assist Available,Outpatient PT Equipment Needed for Home Before FWW Discharge Transportation Needs at Discharge Private Vehicle,Wheelchair/ Cabulance
--- NOTE | 2024-06-13 11:25 | CM.DANOTE ---
Initial DCP Assessment Visit Note Reviewed EMR and team rounds for status updates. Met with patient at bedside to introduce self and role, pt was found to be alert/oriented, appearing somewhat groggy, yet able to discuss her needs/concerns and plan for home d/c later today. She lives independently in an apartment with her 6 year-old son and older dtr, who will be driving her home later this afternoon. BLISTER RUST ERADICATOR Consult request was received and her needs were assessed. Payor: [employer] PCP: Jarocho Qiu Pt is a 44 year-old F with a prior hx of a TIA last year presents to the ED last evening after she was found to experience sudden onset difficulty speaking, and left-sided arm and leg weakness. CT imaging did reveal a minor infarct event, suspected to be another TIA/CVA. Pt has recovered well overnight, she will be working with PT prior to discharging. BLISTER RUST ERADICATOR had a lengthy conversation with her about her food insecurity concerns, resources that she has tried, and provided a list of summer food resources in [place]. In addition, this BLISTER RUST ERADICATOR did call and verify that the [facility] [employer] bank is open today, provided pt the address and recommended that she stop there on her way out of town and get enough food to last her until she receives her food stamps for June. BLISTER RUST ERADICATOR will continue to follow for any further evolving needs prior to her departure. Discharge Planning/Care Management CM Discharge Assessment Start: 06/13/24 11:22 Freq: Status: Active Protocol: Document 06/13/24 11:23 DPL (Rec: 06/13/24 11:24 DPL [id number]) Discharge Planning Assessment Assigned Manager Shell HERMILA Chavez Advance Directives? No History Provided By Patient,Medical Record Has Patient been admitted in last 30 No days? Prior Living Arrangements Apartment/Condo Household Members children Type of transporation used prior to Relies on Others admit Independent with ADL's Yes Is patient alert and oriented? Yes Caregiver for Another Yes: 6 year-old autistic son Comment No anticipated d/c needs at this time. Comment Has no provider Discharge Plan Home Transportation Arrangement daughter Additional Comment Provided resources for local emergency food programs. Whiteboard Updated in Patient Room with Yes name and ext. # of Manager Shell Review Status In Process Please Provide Date Initial DC 06/13/24 Assessment Was Performed
[2024-06-13] MEDS: LORazepam 2 MG/ML INJ 1 MG IV (14:08)
--- NOTE | 2024-06-13 15:05 | OT.IPNOTE ---
Per nursing pt at MRI, to check on the pt later.
--- NOTE | 2024-06-13 17:39 | PM.DS.1 ---
History of Present Illness History of Present Illness Chief complaint: thinks stroke, open wound left lower leg Narrative: From night doctor: 44 years old female with history of prior TIA, obesity, restless leg syndrome, peptic ulcer disease, diabetes, presented to the ER with difficulty with her speech and weakness of her left arm and left leg while she was driven by her daughter at school doctors appointment for assessment of her leg ulcer skin problem. The patient has difficulty expressing herself and unable to speak. She also had some decreased satiation to light touch of left face, arm and leg. Unable to do [id number] and [id number] on the left. CT of the head and CTA of the head and neck was unremarkable. Teleneurologist was contacted and recommended thrombolytic therapy but the patient declined. She agreed to initiate aspirin and have MRI and echo in the morning. All glucose 166, creatinine 1.1, H&H 11/34.5. She was given in the ER aspirin 324 mg p.o. Patient also reports some anxiety panic attacks and PTSD. Similar symptoms with TIA in 2019 with negative workup. Additional information: She was still anxious but her neurologic symptoms have improved. She can speak without difficulty. She denies any headache at this point. No visual changes. She was having lot of anxiety, and has had a lot of stress at home. This relates to family dynamics. She denies any nausea, chest pain or abdominal pain. She does have a left calf ulcer which is improving on antibiotics. She denies any numbness weakness of arms or legs. No facial droop. Discharge Providers Provider Date of admission: 06/13/24 00:20 Discharge Date: 06/13/24 Primary care physician: Marcus Fisher MD Consults: 06/13/24 00:46 Consult to Discharge Planning Routine Comment: Consult to Occupational Therapy Evaluate & Treat Comment: Physician Instructions: Evaluate and treat Consult to Physical Therapy Evaluate & Treat Comment: Physician Instructions: Evaluate and Treat Consult to Speech Therapy Evaluate & Treat Comment: Physician Instructions: Evaluate and treat 06/13/24 01:52 Consult to Dietitian, Adult Routine Comment: Reason For Exam: low MNA score; doesn't have enough food to feed fa Consult to ERP TECHNICAL LEAD - Veterinary Laboratory Technician Routine Comment: Veterinary Laboratory Technician Consult needed for:: Other reason (Comment) Comment: poor housing situation and not having enough food to feed herself and children Discharge provider: Augustine Rodriguez MD Summary Hospital Course Discharge Diagnosis: 1. Anxiety episode and transient speech difficulties. present on admission and resolved. -Initial CT head and CT angiogram shows no obvious abnormality. Patient declined thrombolysis. -ASA, -Permissive hypertension, prn Labetalol/ hydralazine for SBP>220. -ECHO, MRI head and neck with diffusion studies, carotid ultrasound, -Telemetry monitoring, Serial neurochecks 2. CXR infiltrates, present on admission and active. -5 days of doxycycline PO. 3. Mild hyperglycemia without any history of diabetes. Check A1c and monitor blood sugar 4. Anxiety/panic attacks/PTSD. Restart hydroxyzine and propranolol 5. DM 2, present on admission and active. 6. Obesity class 2, present on admission and active. 7. Restless legs, present on admission and active. Hospital Course: The patient presented with transient speech difficulties and anxiety. Initially there was consideration of thrombolytics but the patient declined. I saw the patient later in the morning and they had no neurologic deficits. Speech is normal but there was a lot of anxiety. She described a lot of recent stress and a lot of anxiety issues. Her urine tox was positive for methamphetamines but she denied using methamphetamines. She does not was 2 daughters and there is a fair amount of dynamics issues there. She also takes care of her special needs son. She noted that she would taken clonazepam chronically for some time but this is no longer the case as she was transitioned to another doctor and off from benzodiazepines. She did have an MRI here which was negative for stroke in her CT angiogram was unremarkable. Ultimately, I do not think there was enough evidence to support chronic medication changes for TIA or stroke. This clinically appeared to be more consistent with stress reaction. We will also treat her with doxycycline for 5 days for an abnormal x-ray with close PCP follow up. We will discharge her with a very small supply of benzodiazepines as needed. Status at Discharge Cognitive/behavioral status at discharge: oriented Functional status at discharge: independent ambulation Overall status at discharge: patient is back to baseline Time Spent with Patient Time spent: Greater than 30 minutes Exam Vital Signs (past 8 hours): - 06/13/24 14:37 Temperature 95.9 F L Pulse Rate 84 Respiratory Rate 17 Blood Pressure 126/76 Pulse Oximetry 97 Oxygen Delivery Method Room Air Oxygen Flow Rate 0 Narrative Exam Narrative: NAD, alert and oriented. Fluent speech. Lungs are clear, normal rate and effort. Heart is regular, no murmur gallop or rub. Abdomen is soft, non distended. Extremities are free of edema. Normal speech, much more calm. Normal all motor strength in arms and legs. Objective Imaging Multiple studies: : Radiologist's impression: CT brain: No acute intracranial pathology. CTA: No significant intracranial arterial abnormality is seen. No high-grade stenosis, occlusion, aneurysm, or dissection. No significant abnormality is seen within the arteries of the neck. No evidence for dissection. If there is persistent or high clinical suspicion for acute cerebrovascular ischemia/stroke, more sensitive evaluation with brain MRI can be considered. CXR: Diffuse interstitial prominence involving the left hemithorax with patchy opacities of the left perihilar and left lung base. Findings may represent an infectious or inflammatory process. Asymmetric pulmonary edema may have a similar appearance if clinically appropriate. MRI brain: No acute changes noted. Labs 06/12/24 21:48 06/13/24 03:10 Labs: Laboratory Results - last 24 hr 06/12/24 06/13/24 06/13/24 21:48 03:10 04:30 WBC 7.3 RBC 4.56 Hgb 11.0 L Hct 34.5 L MCV 75.7 L MCH 24.1 L MCHC 31.9 RDW 16.8 H Plt Count 262 Neut % (Auto) 69.2 Lymph % (Auto) 22.6 L [place] % (Auto) 7.1 Eos % (Auto) 0.8 L Baso % (Auto) 0.3 Neut # (Auto) 5100 Lymph # (Auto) 1700 [place] # (Auto) 500 Eos # (Auto) 100 Baso # (Auto) 0 PT 11.9 INR 1.0 APTT 32 Sodium 139 136 L Potassium 3.7 3.8 Chloride 104 105 Carbon Dioxide 29 28 BUN 15 15 Creatinine 1.10 H 0.93 Estimated GFR > 60 > 60 BUN/Creatinine Ratio 13.6 16.1 Glucose 166 H 136 H Calcium 9.3 8.7 Magnesium 2.0 Total Bilirubin 0.5 0.4 AST 27 29 ALT 16 14 Alkaline Phosphatase 108 106 Total Creatine Kinase 156 H Troponin I < 0.012 Total Protein 7.9 6.6 Albumin 4.4 3.6 Globulin 3.5 3.0 Albumin/Globulin Ratio 1.3 1.2 Triglycerides 139 Cholesterol 152 LDL Cholesterol, Calc 83 HDL Cholesterol 41 TSH 1.45 U Opiates 300ng/mL cut Negative Ur Oxycodone Screen Negative Urine Methadone Screen Negative Ur Barbiturates Screen Negative U Tricyclic Antidepress Negative Ur Phencyclidine Scrn Negative Ur Amphetamines Screen Positive H U Methamphetamines Scrn Positive H Ur MDMA Scrn (Ecstasy) Negative U Benzodiazepines Scrn Negative Urine Cocaine Screen Negative U Marijuana (THC) Screen Negative Urine pH Normal Urine Specific [place] Normal Ur Creatinine Normal PFSH Medical History Peptic ulcer Restless leg syndrome Obesity (BMI 30.0-34.9) delivery delivered Diabetes Surgical History Status post gastric bypass for obesity Hx of cholecystectomy Social History household members: children Smoking Status: Current some day smoker alcohol intake: former Discharge Assessment & Plan Assessment and Plan Assessment: 1. Anxiety episode and transient speech difficulties. present on admission and resolved. -Initial CT head and CT angiogram shows no obvious abnormality. Patient declined thrombolysis. 2. CXR infiltrates, present on admission and active. -5 days of doxycycline PO. 3. Mild hyperglycemia without any history of diabetes. Check A1c and monitor blood sugar 4. Anxiety/panic attacks/PTSD. Restart hydroxyzine and propranolol 5. DM 2, present on admission and active. 6. Obesity class 2, present on admission and active. 7. Restless legs, present on admission and active. Plan of Treatment: Stable for discharge home with no change to medications at this point. Discharge Plan Discharge Plan Patient Disposition: Home Provider Discharge Comment: Stable for discharge home, no change in medications. No clear evidence of a TIA. This may have been anxiety related. We will treat with antibiotics for 5 days for possible infiltrate on x-ray. Recommend follow up with PCP within 1 week. Discharge orders & Medications Prescriptions: New doxycycline hyclate 100 mg capsule 100 mg PO BID Qty: 10 0RF Continued gabapentin 600 mg tablet 600 mg PO TID hydroxyzine pamoate 50 mg capsule 50 mg PO 3XD PRN (Reason: anxiety) propranolol 20 mg tablet 20 mg PO 3XD PRN (Reason: Anxiety) ondansetron 4 mg tablet,disintegrating 8 mg PO DAILY PRN (Reason: Nausea And Vomiting) venlafaxine 75 mg capsule,extended release 24hr 75 mg PO DAILY trazodone 50 mg tablet 50 mg PO ONCE PM Medication counseling provided by Pharmacist: No Follow up/Referrals: Marcus Fisher MD [Primary Care Provider] - Diet/Activity/Treatments Diet: Regular Skin/Wound/Dressing Care Report to your healthcare provider any signs of infection, such as:: chills, fever, increased pain, unusual drainage and unusual redness Visit Report/Discharge Packet Instructions: DI for Atypical Pneumonia Stand Alone Forms: Patient Portal/API, Stroke Signs & Symptoms Discharge Data Primary Care Provider: Marcus Fisher Attending Provider: Vasile Mirza Admit Date/Time: 06/13/24 00:20 Quality VTE Deep Vein Thrombosis/Pulmonary Embolism Present on Admission: No
--- NOTE | 2024-06-13 18:20 | PC.NURSE ---
Pt is dressed and ready for discharge home with daughter. IV and Tele have been removed. Pt's speech and left sided weakness have improved. Went over d/c instructions with Pt - discussed d/c meds, time of last dose, reviewed stroke education, s/s of infection, encouraged Pt to take her abx completely as directed, drink plenty of fluids to prevent constipation or dehydration, no driving until she is feeling better and safe to drive, advised her to keep an eye on the wound on the back of her leg and covered it with a dressing, and reminded her if TIA or Stroke symptoms recurred or got worse to come to the ER or call 911 if this occurs. Pt denied further questions and will be taken out via w/c by HOME APPLIANCE TECHNICIAN to POV with daughter and all belongings.
== END 2024-06-13 18:50 | disposition home or self-care (01) ==
LOC: ED 06-13 00:13 → AC 06-13 06:48
PROVIDERS: Admitting Provider Internal Medicine; Emergency Provider Emergency Medicine; PCP Family Medicine; Referring Provider Emergency Medicine; Visit Provider Internal Medicine
DX: R53.1 Weakness (principal); R47.89 Other speech disturbances; S81.802A Unspecified open wound, left lower leg, initial encounter; F41.9 Anxiety disorder, unspecified; E11.65 Type 2 diabetes mellitus with hyperglycemia; G25.81 Restless legs syndrome; Z86.73 Personal history of transient ischemic attack (TIA), and cerebral infarction without residual deficits; R29.706 NIHSS score 6
CPT/HCPCS: 36415; 70450; 70496; 70498; 70551; 71045; 80053; 80061; 80305; 82550; 82962; 83735; 84443; 84484; 85025; 85610; 85730; 92610; 93005; 93306; 96374; 97161; 97530; 99284; 99291; G0378; J2060; Q9967

== ENCOUNTER 2025-05-15 06:47 | Emergency (ER) | payer OTHER, SELFPAY ==
[2024-06-13 01:33] VITALS: BMI 36.2
[2025-05-15 07:06] LABS: POC Glucose 225 mg/dL (70-99)
--- NOTE | 2025-05-15 07:07 | ED_ITS ---
HPI - Neuro Symptoms/Deficit General Chief Complaint: Neuro Symptoms/Deficit Stated Complaint: Possible TIA x 2 days ago Time Seen by Provider: 05/15/25 07:05 History of Present Illness HPI Narrative: Patient is a 45-year-old female with a past medical history of TIA, restless leg syndrome, peptic ulcer disease, diabetes, atypical migraines, presenting into the emergency department from home for evaluation of right-sided decreased sensation. 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 She states that she is not on any medication for this. She denies any other symptoms such as headache visual disturbances chest pain shortness breath fever chills nausea vomiting abdominal pain or any other GI/ symptoms time. No trauma no falls not on any blood thinners Related Data Home Medications ?Medication ?Instructions ?Recorded ?Confirmed gabapentin 600 mg tablet 600 mg PO TID 06/13/2406/13 hydroxyzine pamoate 50 mg capsule 50 mg PO 3XD PRN anx iety 06/13/24 06/13/24 ondansetron 4 mg disintegrating 8 mg PO DAILY PRN Naus ea And 06/13/24 06/13/24 tablet Vomiting propranolol 20 mg tablet 20 mg PO 3XD PRN Anxiety 06/13/24 trazodone 50 mg tablet 50 mg PO ONCE PM 06/13/24 venlafaxine 75 mg capsule,extended 75 mg PO DAILY 05/2206/13/24 release 24 hr Previous Rx's ?Medication ?Instructions ?Recorded doxycycline hyclate 100 mg capsule 100 mg PO BID #10 c aps 06/13/24 lorazepam 1 mg tablet (Ativan) 1 mg PO BID PRN anxiety #7 tabs 06/13/24 atorvastatin 40 mg tablet 40 mg PO DAILY 1 month #30 t abs 05/15/25 Allergies Allergy/AdvReac Type Severity Reaction Status Date / Time Penicillins Allergy Severe Hives Verified 06/13/24 17:29 ceftriaxone (CEFTRIAXONE) Allergy Intermediate Verified 08/12/22 13:13 ketorolac (KETOROLAC) Allergy Intermediate Verified 08/12/22 13:13 acetaminophen (From VICODIN) Allergy Unknown Verified 08/12/22 13:13 enoxaparin (From LOVENOX) Allergy Unknown Verified 08/12/22 13:13 hydrocodone (From VICODIN) Allergy Unknown Verified 08/12/22 13:13 prednisone (PREDNISONE) Allergy Unknown Verified 08/12/22 13:13 MEDICATION FOR BLOOD CLOTS Allergy Intermediate Uncoded 01/04/19 09:44 Review of Systems Review of Systems Narrative: General: Denies fever, chills, weight loss HEENT: Denies headache, eye drainage, eye irritation, head trauma, sore throat, voice change Cardiovascular: Denies any chest pain, palpitations, tachycardia Respiratory: Denies any shortness of breath, cough, wheeze, stridor GI/: Denies any abdominal pain, nausea, vomiting, diarrhea, bright red blood per rectum, melanotic stools, urinary frequency, urinary retention, dysuria, hematuria MSK: Denies any joint pain, muscle pains, swelling Skin: Denies any rashes, lesions, discoloration Neuro: Positive right-sided weakness, decreased sensation Denies any headache, lightheadedness, dizziness, fainting, weakness Psych: Denies SI/HI Patient History Medical History Peptic ulcer Restless leg syndrome Obesity (BMI 30.0-34.9) delivery delivered Diabetes Surgical History Status post gastric bypass for obesity Hx of cholecystectomy Social History household members: children alcohol intake: former alcohol intake frequency: holidays/special occasions only Exam Narrative Exam Narrative: General: Cooperative, well-developed, not in acute distress HEENT: Normocephalic, atraumatic, PERRLA, normal sclera, eyelids normal Neck: Active full range of motion, atraumatic Chest: Normal to inspection, negative crepitus, no overlying erythema ecchymosis Respiratory: Normal respiratory effort, not in acute respiratory distress, clear to auscultation bilaterally negative cough, wheeze, tachypnea, rhonchi, rales Cardiology: Regular rate rhythm negative gallop, murmur, rubs GI/: No tenderness to palpation, soft, non rigid, normal to inspection, exam deferred MSK: Full active range of motion in all 4 extremities, atraumatic, no tenderness to palpation of any bony prominences Skin: No rashes or lesions noted Neuro: Alert awake oriented x3, moves all 4 extremities spontaneously, cranial nerves intact, able to answer all questions appropriately follows commands appropriately, patient with decreased sensation to the right side, mild decreased strength to the right upper and lower extremity, however patient is able to stand bear weight ambulate unassisted Psych: Cooperative, negative suicidal or homicidal ideations Initial Vital Signs Initial Vital Signs: Vital Signs Temperature 97.8 F 05/15/25 07:13 Pulse Rate 88 05/15/25 07:13 Respiratory Rate 20 05/15/25 07:13 Blood Pressure 192/102 H 05/15/25 07:13 Pulse Oximetry 96 05/15/25 07:13 Oxygen Delivery Method Room Air 05/15/25 07:13 Course Orders Ordered: ED Orders 05/15/25 07:15 EKG-12 Lead Stat 05/15/25 07:16 CT head/brain wo con Stat CXR [XR chest 1V] Stat 05/15/25 07:20 Urinalysis and Microscopic Stat Urine Drug Screen, Rapid Stat 05/15/25 08:24 Comprehensive Metabolic Panel Stat Ethanol (ETOH) Stat MAG [Magnesium] Stat Troponin & CK Cardiac Panel Stat 05/15/25 08:35 CT angio head and neck Stat 05/15/25 08:50 Complete Blood Count AUTO DIFF Stat PTT Partial Thromboplastin Jose Stat Prothrombin Time INR Stat Discontinued Medications Dexamethasone (Dexamethasone 10 Mg/Ml Vial) 10 mg IV NOW ONE Stop: 05/15/25 07:16 Last Admin: 05/15/25 09:21 Dose: 10 mg Documented By: CTS Diphenhydramine HCl (Diphenhydramine 50 Mg/Ml Vial) 25 mg IV NOW ONE Stop: 05/15/25 07:16 Last Admin: 05/15/25 09:21 Dose: 25 mg Documented By: CTS Sodium Chloride (Normal Saline 0.9%) 1,000 mls @ 1,000 mls/hr IV BOLUS ONE Stop: 05/15/25 08:14 Last Admin: 05/15/25 09:21 Dose: 1,000 mls/hr Documented By: HUSAM Metoclopramide HCl (Metoclopramide 10 Mg/2 Ml Inj) 10 mg IV NOW ONE Stop: 05/15/25 07:16 Last Admin: 05/15/25 09:21 Dose: 10 mg Documented By: HUSAM Vital Signs Vital signs: Vital Signs - 8 hr 05/15/25 07:13 05/15/25 08:00 05/15/25 09:23 Temperature 97.8 F Pulse Rate 88 88 82 Respiratory Rate 20 16 12 Blood Pressure 192/102 H 181/77 H 137/89 Pulse Oximetry 96 100 99 Oxygen Delivery Method Room Air Room Air Room Air MDM - Neuro Symptoms/Deficit Differential Diagnosis Differential diagnosis: Likely subarachnoid hemorrhage, peripheral neuropathy, cerebrovascular accident, transient cerebral ischemia and other (Electrolyte abnormality, urinary tract infection, atypical migraine) Lab Data 05/15/25 08:50 05/15/25 08:24 Labs: Lab Results 05/15/25 05/15/25 05/15/25 Range/Units 07:01 07:20 07:20 WBC (4.5-11.0) X10^3/uL RBC (4.0-5.2) X10^6/uL Hgb (12.0-16.0) g/dL Hct (36-46) % MCV (80-100) fL MCH (26-34) PG MCHC (30-36) % RDW (11.6-14.8) % Plt Count (150-400) X10^3/uL Neut % (Auto) (50-75) % Lymph % (Auto) (25-40) % [place] % (Auto) (3-14) % Eos % (Auto) (2-4) % Baso % (Auto) (0-2) % Neut # (Auto) (0761-1673) /uL Lymph # (Auto) (1250-0992) /uL [place] # (Auto) (0-900) /uL Eos # (Auto) (0-450) /uL Baso # (Auto) (0-100) /uL PT (9.4-12.5) SECONDS INR (0.9-1.3) APTT (25.1-36.5) SECONDS Sodium (137-145) mmol/L Potassium (3.4-5.1) mmol/L Chloride (98-107) mmol/L Carbon Dioxide (22-32) mmol/L BUN (7-17) mg/dL Creatinine (0.52-1.04) mg/dL Estimated GFR (>60) mL/min BUN/Creatinine Ratio (6-22) Glucose (70-99) mg/dL POC Whole Bld Glucose 225 H (70-99) mg/dL Calcium (8.4-10.2) mg/dL Magnesium (1.6-2.3) mg/dL Total Bilirubin (0.2-1.3) mg/dL AST (14-36) IU/L ALT (<35) IU/L Alkaline Phosphatase (38-126) U/L Total Creatine Kinase (30-135) U/L Troponin I (0.01-0.034) ng/mL Total Protein (6.3-8.2) g/dL Albumin (3.5-5.0) g/dL Globulin (1.7-4.1) g/dL Albumin/Globulin Ratio (1.0-2.8) Urine Color Yellow Urine Appearance Cloudy Urine pH 5.5 Normal (4.5-8.0) Ur Specific [place] >=1.030 H (1.000-1.035) Urine Protein Negative (Negative) Urine Glucose (UA) 2+ H (Negative) g/dL Urine Ketones Trace H (NEGATIVE) Urine Occult Blood Negative (Negative) Urine Nitrate Negative (Negative) Urine Bilirubin Negative (NEGATIVE) Urine Urobilinogen 2.0 H (0.2) E.U./dL Ur Leukocyte Esterase Trace H (NEGATIVE) Urine RBC None seen (0-5/HPF) Urine WBC 0-1/hpf (0-5/HPF) Ur Squamous Epith Cells 5-10 /hpf H (0-5/HPF) Calcium Oxalate Crystal Many H Urine Bacteria Occasional (0-1) (None) Ur Culture Indicated? Cult not indicated Vol Urine Centrifuged 10ml (spun) U Opiates 300ng/mL cut Negative (Negative) Ur Oxycodone Screen Negative (Negative) Urine Methadone Screen Negative (Negative) Ur Barbiturates Screen Negative (Negative) U Tricyclic Antidepress Negative (Negative) Ur Phencyclidine Scrn Negative (Negative) Ur Amphetamines Screen Positive H (Negative) U Methamphetamines Scrn Positive H (Negative) Ur MDMA Scrn (Ecstasy) Positive H (Negative) U Benzodiazepines Scrn Positive H (Negative) Urine Cocaine Screen Negative (Negative) U Marijuana (THC) Screen Negative (Negative) Urine Specific [place] Abnormal A (Normal) Ethyl Alcohol (<10) mg/dL Ur Creatinine Normal (Normal) 05/15/25 05/15/25 Range/Units 08:24 08:50 WBC 5.8 (4.5-11.0) X10^3/uL RBC 4.19 (4.0-5.2) X10^6/uL Hgb 10.6 L (12.0-16.0) g/dL Hct 32.6 L (36-46) % MCV 77.9 L (80-100) fL MCH 25.4 L (26-34) PG MCHC 32.7 (30-36) % RDW 15.9 H (11.6-14.8) % Plt Count 222 (150-400) X10^3/uL Neut % (Auto) 63.2 (50-75) % Lymph % (Auto) 29.8 (25-40) % [place] % (Auto) 5.6 (3-14) % Eos % (Auto) 0.8 L (2-4) % Baso % (Auto) 0.6 (0-2) % Neut # (Auto) 3700 (0293-0102) /uL Lymph # (Auto) 1700 (5431-6492) /uL [place] # (Auto) 300 (0-900) /uL Eos # (Auto) 0 (0-450) /uL Baso # (Auto) 0 (0-100) /uL PT 11.6 (9.4-12.5) SECONDS INR 1.0 (0.9-1.3) APTT 32 (25.1-36.5) SECONDS Sodium 137 (137-145) mmol/L Potassium 4.5 (3.4-5.1) mmol/L Chloride 102 (98-107) mmol/L Carbon Dioxide 27 (22-32) mmol/L BUN 12 (7-17) mg/dL Creatinine 1.08 H (0.52-1.04) mg/dL Estimated GFR > 60 (>60) mL/min BUN/Creatinine Ratio 11.1 (6-22) Glucose 153 H (70-99) mg/dL POC Whole Bld Glucose (70-99) mg/dL Calcium 8.9 (8.4-10.2) mg/dL Magnesium 1.8 (1.6-2.3) mg/dL Total Bilirubin 0.7 (0.2-1.3) mg/dL AST 38 H (14-36) IU/L ALT 18 (<35) IU/L Alkaline Phosphatase 89 (38-126) U/L Total Creatine Kinase 266 H (30-135) U/L Troponin I < 0.012 (0.01-0.034) ng/mL Total Protein 7.4 (6.3-8.2) g/dL Albumin 4.3 (3.5-5.0) g/dL Globulin 3.1 (1.7-4.1) g/dL Albumin/Globulin Ratio 1.4 (1.0-2.8) Urine Color Urine Appearance Urine pH (4.5-8.0) Ur Specific [place] (1.000-1.035) Urine Protein (Negative) Urine Glucose (UA) (Negative) g/dL Urine Ketones (NEGATIVE) Urine Occult Blood (Negative) Urine Nitrate (Negative) Urine Bilirubin (NEGATIVE) Urine Urobilinogen (0.2) E.U./dL Ur Leukocyte Esterase (NEGATIVE) Urine RBC (0-5/HPF) Urine WBC (0-5/HPF) Ur Squamous Epith Cells (0-5/HPF) Calcium Oxalate Crystal Urine Bacteria (None) Ur Culture Indicated? Vol Urine Centrifuged U Opiates 300ng/mL cut (Negative) Ur Oxycodone Screen (Negative) Urine Methadone Screen (Negative) Ur Barbiturates Screen (Negative) U Tricyclic Antidepress (Negative) Ur Phencyclidine Scrn (Negative) Ur Amphetamines Screen (Negative) U Methamphetamines Scrn (Negative) Ur MDMA Scrn (Ecstasy) (Negative) U Benzodiazepines Scrn (Negative) Urine Cocaine Screen (Negative) U Marijuana (THC) Screen (Negative) Urine Specific [place] (Normal) Ethyl Alcohol < 10 (<10) mg/dL Ur Creatinine (Normal) Imaging Data CT scan - head: Radiologist's Impression: [address] [address] [address] Scan Report Signed Patient: Tabby Edmondson MR#: [id number] : 1980 Acct:[id number] Age/Sex: 45 / F Date of Service: 05/15/25 Loc: ED Accession Number: [id number] Procedure: CT head/brain wo con Ordering Provider: Holden Izquierdo D.O. PROCEDURE: CT HEAD/BRAIN WO CON INDICATIONS: right sided weakness x2 days , hx TIA TECHNIQUE: Noncontrast 4.5 mm thick angled axial sections acquired from the foramen magnum to the vertex, with coronal and sagittal reformats. For radiation dose reduction, the following was used: automated exposure control, adjustment of mA and/or kV according to patient size. COMPARISON: [facility], CT, CT ANGIO HEAD AND NECK, 05/15/2025, 7:33. [facility], CT, CT HEAD/BRAIN WO CON, 01/04/2019, 9:41. FINDINGS: Image quality: Diagnostic. CSF spaces: Basal cisterns are patent. No extra-axial fluid collections. Ventricles are normal in size and shape. Brain: No midline shift. No intracranial mass effect or hemorrhage. Baez- white matter interface is normal. Skull and face: Calvarium and visualized facial bones are intact, without suspicious lesions. Sinuses: Visualized sinuses and mastoids are clear. IMPRESSION: No acute intracranial pathology. Comment: If suspect acute stroke, consider brain MRI. CTA - brain/neck: Radiologist's Impression: [place] [address] CT Scan Report Signed Patient: Tabby Edmondson MR#: [id number] : 1980 Acct:[id number] Age/Sex: 45 / F Date of Service: 05/15/25 Loc: ED Accession Number: [id number] Procedure: CT angio head and neck Ordering Provider: Holden Izquierdo D.O. PROCEDURE: CT ANGIO HEAD AND NECK INDICATIONS: right sided weakness x2 days, hx TIA TECHNIQUE: After the administration of intravenous contrast, 1 mm thick sections acquired from the aortic arch through the [place] of [place]. 3-dimensional qtvpsfo-kjqhtavuk-pltenfgevd (MIP) and/or volume rendering reformats were acquired of the central intracranial vasculature and neck separately. For radiation dose reduction, the following was used: automated exposure control, adjustment of mA and/or kV according to patient size. COMPARISON: [facility], CT, CT ANGIO HEAD AND NECK, 06/12/2024, 21:50. FINDINGS: Image quality: Diagnostic. Cerebral CT Angiogram: Internal carotid arteries: No acute findings. Intracranial ICA are patent with no significant stenosis. No occlusion. No aneurysm. Anterior cerebral arteries: Unremarkable. No significant stenosis. No occlusion. No aneurysm. Middle cerebral arteries: Unremarkable. No significant stenosis. No occlusion. No aneurysm. Posterior cerebral arteries: Unremarkable. No significant stenosis. No occlusion. No aneurysm. Basilar artery: Unremarkable. No significant stenosis. No occlusion. No aneurysm. Vertebral arteries: Unremarkable as visualized. Dural venous sinuses: Unremarkable given phase of enhancement. Other: Arterial phase appearance of the brain parenchyma is unremarkable. Neck CT Angiogram: Internal carotid arteries: Unremarkable. No significant stenosis. No dissection or occlusion. Common carotid arteries: Unremarkable. No significant stenosis. No dissection or occlusion. External carotid arteries: Unremarkable. No occlusion. Vertebral arteries: Unremarkable. No significant stenosis. No dissection or occlusion. Aortic Arch and Mediastinum: Partially visualized aortic arch unremarkable without evidence of aneurysm. Origins of the great vessels unremarkable. Other: Arterial phase soft tissues of the neck and chest are unremarkable. IMPRESSION: No significant intracranial arterial abnormality is seen. No significant abnormality is seen within the arteries of the neck. Any quantitative measurements of stenosis were performed using NASCET criteria. Chest x-ray: Radiologist's Impression: [address] [address] XRay Report Signed Patient: Tabby Edmondson MR#: [id number] : 1980 Acct:[id number] Age/Sex: 45 / F Date of Service: 05/15/25 Loc: ED Accession Number: [id number] Procedure: XR chest 1V Ordering Provider: Holden Izquierdo D.O. PROCEDURE: XR CHEST 1V INDICATIONS: weakness TECHNIQUE: One view of the chest was acquired. COMPARISON: [facility], , XR CHEST 1V, 06/12/2024, 23:17. FINDINGS: Surgical changes and devices: None. Lungs and pleura: Lungs are clear. No pleural effusions or pneumothorax. Mediastinum: Mediastinal contours appear normal. Heart size is normal. Bones and chest wall: No suspicious bony lesions. Overlying soft tissues appear unremarkable. IMPRESSION: No acute cardiopulmonary abnormality is seen. ECG Data Interpretation: EKG interpreted by ED physician sinus 83 beats per minute, QTC 430, normal axis nonspecific ST changes no STEMI MDM Narrative Medical decision making narrative: Patient is a 45-year-old female with a history of TIA, diabetes, restless leg syndrome, peptic ulcer disease, atypical migraines presenting for right-sided weakness and decreased sensation, onset was a proximally 2 days ago. States that she woke up thinking it was 1 of her normal atypical migraines, she states that after her TIA she did improves but has had somewhat baseline decreased sensations to her right body, however she states that due to persistent symptoms decided come into the ED for further evaluation treatment. She states that she is not taking any aspirins antiplatelets, states that she is not on any blood thinners or had any recent traumas or falls. Patient had lab work imaging EKG urinalysis performed here in the emergency department. CT scans negative for any acute findings, lab work unremarkable, urinalysis was consistent with amphetamines, MDMA, benzodiazepines, patient states that she does not take any drugs. On re-evaluation after administration medication patient states that her symptoms have completely resolved. Did give her a migraine cocktail here. However given patient's history of TIA, recommendation is to start aspirin statin and to follow up with primary care doctor in outpatient setting, she verbalized understanding of this and agrees to being discharged home with outpatient follow up Discharge Plan Departure Patient Disposition: Home Clinical Impression: MDMA abuse, Amphetamine use Activity Restrictions/Additional Instructions: Please follow up with primary care, please start taking a aspirin and statin Please read the discharge instructions sheet carefully and bring all papers to all doctor follow-up visits, as it may contain information that your doctor may want to see. Disease processes change and evolve, if your symptoms worsen or if you develop any new symptoms that are concerning to you please return for evaluation. Your evaluation today does not show any evidence of any life- threatening/serious illnesses requiring admission to the hospital or surgery. Please follow-up with your doctor for re-evaluation in approximately 1 day. Seek immediate medical attention for any worrisome symptoms. *If you do not have a primary care provider please contact the [facility] Resource line at [phone]. They will ask some questions about your medical history and help get you set up with a doctor in the community. Prescriptions: New atorvastatin 40 mg tablet 40 mg PO DAILY 30 Days Qty: 30 0RF No Action gabapentin 600 mg tablet 600 mg PO TID hydroxyzine pamoate 50 mg capsule 50 mg PO 3XD PRN (Reason: anxiety) propranolol 20 mg tablet 20 mg PO 3XD PRN (Reason: Anxiety) ondansetron 4 mg tablet,disintegrating 8 mg PO DAILY PRN (Reason: Nausea And Vomiting) venlafaxine 75 mg capsule,extended release 24hr 75 mg PO DAILY trazodone 50 mg tablet 50 mg PO ONCE PM doxycycline hyclate 100 mg capsule 100 mg PO BID Qty: 10 0RF lorazepam [Ativan] 1 mg tablet 1 mg PO BID PRN (Reason: anxiety) Qty: 7 0RF Referrals: Marcus Fisher MD [Primary Care Provider, Family Practice] Stand Alone Forms: Patient Portal/API
[2025-05-15 07:13] VITALS: BP 192/102; PULSE 88; RESP 20; TEMP 36.6; O2SAT 96; BMI 36.0
--- NOTE | 2025-05-15 07:15 | EKG_ITS ---
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
--- NOTE | 2025-05-15 07:16 | DI.CT.S_ITS ---
PROCEDURE: CT HEAD/BRAIN WO CON INDICATIONS: right sided weakness x2 days , hx TIA TECHNIQUE: Noncontrast 4.5 mm thick angled axial sections acquired from the foramen magnum to the vertex, with coronal and sagittal reformats. For radiation dose reduction, the following was used: automated exposure control, adjustment of mA and/or kV according to patient size. COMPARISON: [facility], CT, CT ANGIO HEAD AND NECK, 05/15/2025, 7:33. [facility], CT, CT HEAD/BRAIN WO CON, 01/04/2019, 9:41. FINDINGS: Image quality: Diagnostic. CSF spaces: Basal cisterns are patent. No extra-axial fluid collections. Ventricles are normal in size and shape. Brain: No midline shift. No intracranial mass effect or hemorrhage. Baez- white matter interface is normal. Skull and face: Calvarium and visualized facial bones are intact, without suspicious lesions. Sinuses: Visualized sinuses and mastoids are clear. IMPRESSION: No acute intracranial pathology. Comment: If suspect acute stroke, consider brain MRI. Dictated by: Chapincito Dee M.D. on 05/15/2025 at 9:31 Approved by: Chapincito Dee M.D. on 05/15/2025 at 9:33
--- NOTE | 2025-05-15 07:16 | DI.RAD.S_ITS ---
PROCEDURE: XR CHEST 1V INDICATIONS: weakness TECHNIQUE: One view of the chest was acquired. COMPARISON: [facility], CR, XR CHEST 1V, 06/12/2024, 23:17. FINDINGS: Surgical changes and devices: None. Lungs and pleura: Lungs are clear. No pleural effusions or pneumothorax. Mediastinum: Mediastinal contours appear normal. Heart size is normal. Bones and chest wall: No suspicious bony lesions. Overlying soft tissues appear unremarkable. IMPRESSION: No acute cardiopulmonary abnormality is seen. Dictated by: Chapincito Dee M.D. on 05/15/2025 at 8:47 Approved by: Chapincito Dee M.D. on 05/15/2025 at 8:47
[2025-05-15 07:41] LABS: Appearance Urine UA CLOUDY; Bilirubin Urine UA NEGATIVE (NEGATIVE); Color Urine UA YELLOW; Glucose Urine UA 2+ g/dL (Negative); Ketones Urine UA TRACE (NEGATIVE); Leukocyte Esterase Urine UA TRACE (NEGATIVE); Nitrite Urine UA NEGATIVE (Negative); Occult Blood Urine UA NEGATIVE (Negative); Protein Urine UA NEGATIVE (Negative); Specific Gravity Urine UA >=1.030 (1.000-1.035)
[2025-05-15 07:45] LABS: Urine Creatinine Normal (Normal)
[2025-05-15 07:46] LABS: Ur Specific Gravity Abnormal (Normal); Urine Cocaine Negative (Negative); Urine Tetrahydrocannabinol Negative (Negative); Urine pH Normal (Normal)
[2025-05-15 07:47] LABS: UR Morphine/Opiate cutoff 300 Negative (Negative); Urine Amphetamines Positive (Negative); Urine Benzodiazepines Positive (Negative); Urine MDMA Positive (Negative); Urine Methadone Negative (Negative); Urine Methamphetamines Positive (Negative); Urine Oxycodone Negative (Negative); Urine Phencyclidine Negative (Negative); Urine Tricyclic Antidepressant Negative (Negative)
[2025-05-15 07:48] LABS: Urine Barbiturates Negative (Negative)
[2025-05-15 07:56] LABS: pH Urine UA 5.5 (4.5-8.0)
[2025-05-15 08:00] VITALS: BP 181/77; PULSE 88; RESP 16; O2SAT 100
[2025-05-15 08:14] LABS: Bacteria Urine Occasional (0-1); RBC Urine None Seen (0-5/HPF); Urine Volume 10mL (spun); WBC Urine 0-1/HPF (0-5/HPF)
[2025-05-15 08:15] LABS: Calcium Oxalate Crystals Urine Many; Culture Indicated Urine Cult Not Indicated; Squamous Epithelial Cell Urine 5-10 /HPF (0-5/HPF)
--- NOTE | 2025-05-15 08:35 | DI.CT.S_ITS ---
PROCEDURE: CT ANGIO HEAD AND NECK INDICATIONS: right sided weakness x2 days, hx TIA TECHNIQUE: After the administration of intravenous contrast, 1 mm thick sections acquired from the aortic arch through the [place] of [place]. 3-dimensional qcvjenk-nninvnwdo-apqgmfhspl (MIP) and/or volume rendering reformats were acquired of the central intracranial vasculature and neck separately. For radiation dose reduction, the following was used: automated exposure control, adjustment of mA and/or kV according to patient size. COMPARISON: [facility], CT, CT ANGIO HEAD AND NECK, 06/12/2024, 21:50. FINDINGS: Image quality: Diagnostic. Cerebral CT Angiogram: Internal carotid arteries: No acute findings. Intracranial ICA are patent with no significant stenosis. No occlusion. No aneurysm. Anterior cerebral arteries: Unremarkable. No significant stenosis. No occlusion. No aneurysm. Middle cerebral arteries: Unremarkable. No significant stenosis. No occlusion. No aneurysm. Posterior cerebral arteries: Unremarkable. No significant stenosis. No occlusion. No aneurysm. Basilar artery: Unremarkable. No significant stenosis. No occlusion. No aneurysm. Vertebral arteries: Unremarkable as visualized. Dural venous sinuses: Unremarkable given phase of enhancement. Other: Arterial phase appearance of the brain parenchyma is unremarkable. Neck CT Angiogram: Internal carotid arteries: Unremarkable. No significant stenosis. No dissection or occlusion. Common carotid arteries: Unremarkable. No significant stenosis. No dissection or occlusion. External carotid arteries: Unremarkable. No occlusion. Vertebral arteries: Unremarkable. No significant stenosis. No dissection or occlusion. Aortic Arch and Mediastinum: Partially visualized aortic arch unremarkable without evidence of aneurysm. Origins of the great vessels unremarkable. Other: Arterial phase soft tissues of the neck and chest are unremarkable. IMPRESSION: No significant intracranial arterial abnormality is seen. No significant abnormality is seen within the arteries of the neck. Any quantitative measurements of stenosis were performed using NASCET criteria. Dictated by: Chapincito Dee M.D. on 05/15/2025 at 9:33 Approved by: Chapincito Dee M.D. on 05/15/2025 at 9:34
[2025-05-15 08:45] LABS: Magnesium 1.8 mg/dL (1.6-2.3)
[2025-05-15 08:47] LABS: Alanine Aminotransferase 18 IU/L (<35); Albumin 4.3 g/dL (3.5-5.0); Albumin Globulin Ratio 1.4 (1.0-2.8); Alkaline Phosphatase 89 U/L (38-126); BUN Creatinine Ratio 11.1 (6-22); Bilirubin Total 0.7 mg/dL (0.2-1.3); Blood Urea Nitrogen 12 mg/dL (7-17); Calcium 8.9 mg/dL (8.4-10.2); Carbon Dioxide 27 mmol/L (22-32); Chloride 102 mmol/L (98-107); Creatine Kinase 266 U/L (30-135); Estimated Glomerular Filt Rate > 60 mL/min (>60); Ethanol (ETOH) < 10 mg/dL (<10); Globulin 3.1 g/dL (1.7-4.1); Glucose 153 mg/dL (70-99); Potassium 4.5 mmol/L (3.4-5.1); Sodium 137 mmol/L (137-145); Total Protein 7.4 g/dL (6.3-8.2)
[2025-05-15 08:55] LABS: HEMOLYSIS 82 (0-50)
[2025-05-15 08:58] LABS: Aspartate Aminotransferase 38 IU/L (14-36); Troponin I < 0.012 ng/mL (0.01-0.034)
[2025-05-15 09:11] LABS: Add Manual Diff / Slide Review NO; Basophils Absolute Auto 0 /uL (0-100); Basophils Percent Auto 0.6 % (0-2); Eosinophils Absolute Auto 0 /uL (0-450); Eosinophils Percent Auto 0.8 % (2-4); Hematocrit 32.6 % (36-46); Hemoglobin 10.6 g/dL (12.0-16.0); Lymphocytes Absolute Auto 1700 /uL (1100-4500); Lymphocytes Percent Auto 29.8 % (25-40); Mean Corpuscular HGB Conc 32.7 % (30-36); Mean Corpuscular Hemoglobin 25.4 PG (26-34); Mean Corpuscular Volume 77.9 fL (80-100); Monocytes Absolute Auto 300 /uL (0-900); Monocytes Percent Auto 5.6 % (3-14); Neutrophils Absolute Auto 3700 /uL (1500-7000); Neutrophils Percent Auto 63.2 % (50-75); Platelet Count 222 X10^3/uL (150-400); Red Blood Cell Count 4.19 X10^6/uL (4.0-5.2); Red Cell Distribution Width 15.9 % (11.6-14.8); White Blood Cell Count 5.8 X10^3/uL (4.5-11.0)
[2025-05-15 09:15] LABS: Prothrombin Time 11.6 SECONDS (9.4-12.5)
[2025-05-15 09:17] LABS: PTT Partial Thromboplastin Tim 32 SECONDS (25.1-36.5)
[2025-05-15] MEDS: DEXAMETHASONE 10 MG/ML VIAL IV (09:21)
[2025-05-15] MEDS: METOCLOPRAMIDE 10 MG/2 ML INJ IV (09:21)
[2025-05-15] MEDS: diphenhydrAMINE 50 MG/ML VIAL 25 MG IV (09:21)
[2025-05-15] MEDS: SODIUM CHLORIDE 0.9% 1,000 ML 1000 ML IV (09:21)
[2025-05-15 09:23] VITALS: BP 137/89; PULSE 82; RESP 12; O2SAT 99
--- NOTE | 2025-05-15 09:25 | PC.NURSE ---
Pt difficult stick. attempt x 2 by this RN with US. Edie Coats, PICC RN called. pt with ROSEMARY midline placed. labs obtained. pt to and from CT. medicated at this time. drowsy. unable to understand pt's speech at times due to dental issues however pt states she is not speaking in her normal jeremie. vitals stable. resting in bed comfortably.
[2025-05-15 09:30] VITALS: BP 148/88; PULSE 85; RESP 20; O2SAT 96
[2025-05-15 10:00] VITALS: BP 180/103; PULSE 82; RESP 15; O2SAT 94
--- NOTE | 2025-05-15 11:00 | PC.NURSE ---
attempted to call emergency contact for patient, Ms Whitten, no answer. patient is discharged.
--- NOTE | 2025-05-15 11:34 | PC.NURSE ---
patient reports a headache like a band across my forehead
--- NOTE | 2025-05-15 11:35 | PC.NURSE ---
patient friend has arrived back to ED, woke patient and provided her items to get dressed, patient up and to the restroom, steady gait, states headache feels better.
== END 2025-05-15 11:37 | disposition home or self-care (01) ==
PROVIDERS: Emergency Provider Student in an Organized Health Care Education/Training Program; PCP Family Medicine
DX: F15.10 Other stimulant abuse, uncomplicated (principal); R53.1 Weakness; R20.2 Paresthesia of skin; Z86.73 Personal history of transient ischemic attack (TIA), and cerebral infarction without residual deficits
CPT/HCPCS: 36415; 70450; 70496; 70498; 71045; 80053; 80305; 80320; 81001; 82550; 82962; 83735; 84484; 85025; 85610; 85730; 93005; 93010; 96361; 96374; 96375; 99284; J1100; J1200; J2765; Q9967